=== PATIENT | female | born 1980 | race Caucasian/White ===

== ENCOUNTER 2017-09-28 16:25 | Emergency (ER) | payer MEDICAID ==
[~2017-09-28] VITALS: Wt 72.7 kg
[~2017-09-28 16:25] MED LIST: CALC600T24 PO; IBUP800T25 PO; NITR-58 PO; PERCOCET PO; PNV1TABL43 PO
[2017-09-28] MEDS ORDERED: CETI10CA PO (18:08)
[2017-09-28] MEDS ORDERED: IBUP-1542 PO (18:09)
--- NOTE | 2017-09-28 18:46 | ERD ---
ER Documentation Chief Complaint Chief Complaint sore throat HPI 37-year-old female presents who emergency department with concerns of throat pain 2 weeks. Patient describes her pain to be gradually worsening. Patient describes the pain to be sharp worse with swallowing. Patient does report hoarseness in her voice. Patient denies any fevers, chills, nausea, vomiting,, shortness breath or LOC. Patient does occasionally have a dry cough. Patient reports taking ibuprofen with some alleviation of symptoms. No recent travel. No sick contacts. ROS All systems reviewed and are negative except as per history of present illness. Medications Home Meds Active Scripts Ibuprofen* (Motrin*) 600 Mg Tab, 600 MG PO Q6, #30 TAB Prov:ANITHA MOFFETT PA-C 09/28/17 Cetirizine Hcl* (Zyrtec*) 10 Mg Capsule, 10 MG PO DAILY, #10 TAB.CHEW Prov:ANITHA MOFFETT PA-C 09/28/17 Oxycodone Hcl/Acetaminophen (Percocet) 1 Tab Tab, 2 TAB PO Q4H Y for PAIN LEVEL 6-10, #30 TAB 0 Refills Prov:RAHAT YEUNG MD 01/10/16 Ibuprofen* (Ibuprofen*) 800 Mg Tab, 800 MG PO Q8, #30 TAB 0 Refills Prov:RAHAT YEUNG MD 01/10/16 Nitrofurantoin Monohyd Macrocr* (Macrobid*) 100 Mg Capsr, 100 MG PO HS for 7 Days Prov:BRITT NGUYEN MD 06/08/15 Reported Medications Vit/Fe Fumarate/Fa* ( Vitamin Tablet*) 1 Tab Tablet, 1 TAB PO DAILY, TAB 06/08/15 Calcium Carbonate* (Calcium Carbonate*) 600 MG Ca Tab, 600 MG PO DAILY, TAB 06/08/15 Allergies Allergies: Coded Allergies: Penicillins (Verified Allergy, Unknown, rash, 01/08/16) PMhx/Soc Medical and Surgical Hx: pt denies Medical Hx, pt denies Surgical Hx Hx Alcohol Use: No Hx Substance Use: No Hx Tobacco Use: No Smoking Status: Never smoker Physical Exam Vitals Vital Signs Date Time Temp Pulse Resp B/P Pulse Ox O2 Delivery O2 Flow Rate FiO2 09/28/17 19:12 90 17 140/88 100 Room Air 09/28/17 16:28 99.7 115 20 172/81 98 Physical Exam GENERAL: Well-developed, well-nourished female. Appears in no acute distress. Hoarseness in voice noted. Speaking in full sentences. HEAD: Normocephalic, atraumatic. No deformities or ecchymosis. EYE: Pupils equal, round, and reactive to light. EOMs intact. No conjunctival erythema. No eye discharge. ENT: External ear without any masses or tenderness. TM visualized bilaterally, non-erythematous, non-bulging. Nasal mucosa pink with no discharge. Oropharynx is erythematous without any tonsillar swelling, erythema or exudates. No uvula deviation. No kissing tonsils. No trismus. No drooling. NECK: Supple. No meningismus. Normal ROM of the neck. LUNG: Clear to auscultation bilaterally. No rhonchi, wheezing, rales or coarse breath sounds. HEART: Regular rate and rhythm. No murmurs, rubs or gallops. BACK: No midline tenderness. EXTREMITIES: Equal pulses bilaterally. No peripheral clubbing, cyanosis or edema. No unilateral leg swelling. NEUROLOGIC: Alert and oriented to person, place and time. Moving all four extremities. 5/5 strength in all extremities. Normal speech. Steady gait. SKIN: Normal color. Warm and dry. No rashes or lesions. Procedures/MDM MEDICAL DECISION MAKING: This is a 37-year-old female presents with throat pain 2 weeks. Patient reports hoarseness in her voice. Vital signs were reviewed. Patient was afebrile. Patient was not hypoxic. The patient does not have trismus, muffled voice, uvula deviation, unilateral tonsillar swelling, or drooling. No signs of neck swelling or hyperextension of the neck noted. Given these findings, the patients presentation is most consistent with laryngitis. I have a much lower clinical suspicion for epiglottitis, peritonsillar abscess, retropharyngeal abscess, Ludwigs angina, strep pharyngitis, viral pharyngitis, dental abscess. PRESCRIPTIONS: Ibuprofen, Zyrtec DISCHARGE: At this time, patient is stable for discharge and outpatient management. Supportive therapies such as OTC throat lozenges and warm salt water gurgles were discussed. I have instructed the patient to follow-up with his/her primary care physician in 1-2 days. I have discussed with the patient the possibility of needing to see a specialist for further workup and imaging studies if symptoms persist. I have instructed the patient to promptly return to the ER for any new or worsening symptoms including increased pain, fever, nausea, vomiting, weakness or LOC. The patient and/or family expressed understanding of and agreement with this plan. All questions were answered. Home care instructions were provided. Patients blood pressure was elevated (>120/80) but appears stable without evidence of hypertensive emergency, hypertensive urgency or end-organ failure. I had discussion with the patient about the risks of hypertension. I have advised the patient to follow up with his/her primary care physician for outpatient monitoring and treatment for hypertension in 2-3 days. I have instructed the patient to return to the ER for any new or worsening symptoms including chest pain, shortness of breath, headache, blurred vision, confusion, nausea, vomiting or LOC. Departure Diagnosis: Primary Impression: Laryngitis Condition: Stable Patient Instructions: Laryngitis Referrals: [facility] YOU HAVE RECEIVED A MEDICAL SCREENING EXAM AND THE RESULTS INDICATE THAT YOU DO NOT HAVE A CONDITION THAT REQUIRES URGENT TREATMENT IN THE EMERGENCY DEPARTMENT. FURTHER EVALUATION AND TREATMENT OF YOUR CONDITION CAN WAIT UNTIL YOU ARE SEEN IN YOUR DOCTORS OFFICE WITHIN THE NEXT 1-2 DAYS. IT IS YOUR RESPONSIBILITY TO MAKE AN APPOINTMENT FOR FOLOW-UP CARE. IF YOU HAVE A PRIMARY DOCTOR --you should call your primary doctor and schedule an appointment IF YOU DO NOT HAVE A PRIMARY DOCTOR YOU CAN CALL OUR PHYSICIAN REFERRAL HOTLINE AT IF YOU CAN NOT AFFORD TO SEE A PHYSICIAN YOU CAN CHOSE FROM THE FOLLOWING [facility] CLINICS [facility] [address] [facility] [address] [facility] [facility] [address] [facility] [address] [facility] [address] [facility]. [facility]. [address] [facility]. [facility] YOU HAVE RECEIVED A MEDICAL SCREENING EXAM AND THE RESULTS INDICATE THAT YOU DO NOT HAVE A CONDITION THAT REQUIRES URGENT TREATMENT IN THE EMERGENCY DEPARTMENT. FURTHER EVALUATION AND TREATMENT OF YOUR CONDITION CAN WAIT UNTIL YOU ARE SEEN IN YOUR DOCTORS OFFICE WITHIN THE NEXT 1-2 DAYS. IT IS YOUR RESPONSIBILITY TO MAKE AN APPOINTMENT FOR FOLOW-UP CARE. IF YOU HAVE A PRIMARY DOCTOR --you should call your primary doctor and schedule and appointment IF YOU DO NOT HAVE A PRIMARY DOCTOR YOU CAN CALL OUR PHYSICIAN REFERRAL HOTLINE AT . IF YOU CAN NOT AFFORD TO SEE A PHYSICIAN YOU CAN CHOSE FROM THE FOLLOWING [facility] INSTITUTIONS: [facility] [address] [place] [address] [facility] [address] [place] [address] [facility] + [facility] [address] [place] [address] Additional Instructions: Call your primary care doctor TOMORROW for an appointment during the next 1-2 days.See the doctor sooner or return here if your condition worsens before your appointment time. Follow up with your doctor for your high blood pressure. ANITHA MOFFETT PA-C Sep 28, 2017 18:46
--- NOTE | 2017-09-28 18:46 | ERD ---
ER Documentation Chief Complaint Chief Complaint sore throat HPI 37-year-old female presents who emergency department with concerns of throat pain 2 weeks. Patient describes her pain to be gradually worsening. Patient describes the pain to be sharp worse with swallowing. Patient does report hoarseness in her voice. Patient denies any fevers, chills, nausea, vomiting,, shortness breath or LOC. Patient does occasionally have a dry cough. Patient reports taking ibuprofen with some alleviation of symptoms. No recent travel. No sick contacts. ROS All systems reviewed and are negative except as per history of present illness. Medications Home Meds Active Scripts Ibuprofen* (Motrin*) 600 Mg Tab, 600 MG PO Q6, #30 TAB Prov:ANITHA MOFFETT PA-C 09/28/17 Cetirizine Hcl* (Zyrtec*) 10 Mg Capsule, 10 MG PO DAILY, #10 TAB.CHEW Prov:ANITHA MOFFETT PA-C 09/28/17 Oxycodone Hcl/Acetaminophen (Percocet) 1 Tab Tab, 2 TAB PO Q4H Y for PAIN LEVEL 6-10, #30 TAB 0 Refills Prov:RAHAT YEUNG MD 01/10/16 Ibuprofen* (Ibuprofen*) 800 Mg Tab, 800 MG PO Q8, #30 TAB 0 Refills Prov:RAHAT YEUNG MD 01/10/16 Nitrofurantoin Monohyd Macrocr* (Macrobid*) 100 Mg Capsr, 100 MG PO HS for 7 Days Prov:BRITT NGUYEN MD 06/08/15 Reported Medications Vit/Fe Fumarate/Fa* ( Vitamin Tablet*) 1 Tab Tablet, 1 TAB PO DAILY, TAB 06/08/15 Calcium Carbonate* (Calcium Carbonate*) 600 MG Ca Tab, 600 MG PO DAILY, TAB 06/08/15 Allergies Allergies: Coded Allergies: Penicillins (Verified Allergy, Unknown, rash, 01/08/16) PMhx/Soc Medical and Surgical Hx: pt denies Medical Hx, pt denies Surgical Hx Hx Alcohol Use: No Hx Substance Use: No Hx Tobacco Use: No Smoking Status: Never smoker Physical Exam Vitals Vital Signs Date Time Temp Pulse Resp B/P Pulse Ox O2 Delivery O2 Flow Rate FiO2 09/28/17 19:12 90 17 140/88 100 Room Air 09/28/17 16:28 99.7 115 20 172/81 98 Physical Exam GENERAL: Well-developed, well-nourished female. Appears in no acute distress. Hoarseness in voice noted. Speaking in full sentences. HEAD: Normocephalic, atraumatic. No deformities or ecchymosis. EYE: Pupils equal, round, and reactive to light. EOMs intact. No conjunctival erythema. No eye discharge. ENT: External ear without any masses or tenderness. TM visualized bilaterally, non-erythematous, non-bulging. Nasal mucosa pink with no discharge. Oropharynx is erythematous without any tonsillar swelling, erythema or exudates. No uvula deviation. No kissing tonsils. No trismus. No drooling. NECK: Supple. No meningismus. Normal ROM of the neck. LUNG: Clear to auscultation bilaterally. No rhonchi, wheezing, rales or coarse breath sounds. HEART: Regular rate and rhythm. No murmurs, rubs or gallops. BACK: No midline tenderness. EXTREMITIES: Equal pulses bilaterally. No peripheral clubbing, cyanosis or edema. No unilateral leg swelling. NEUROLOGIC: Alert and oriented to person, place and time. Moving all four extremities. 5/5 strength in all extremities. Normal speech. Steady gait. SKIN: Normal color. Warm and dry. No rashes or lesions. Procedures/MDM MEDICAL DECISION MAKING: This is a 37-year-old female presents with throat pain 2 weeks. Patient reports hoarseness in her voice. Vital signs were reviewed. Patient was afebrile. Patient was not hypoxic. The patient does not have trismus, muffled voice, uvula deviation, unilateral tonsillar swelling, or drooling. No signs of neck swelling or hyperextension of the neck noted. Given these findings, the patients presentation is most consistent with laryngitis. I have a much lower clinical suspicion for epiglottitis, peritonsillar abscess, retropharyngeal abscess, Ludwigs angina, strep pharyngitis, viral pharyngitis, dental abscess. PRESCRIPTIONS: Ibuprofen, Zyrtec DISCHARGE: At this time, patient is stable for discharge and outpatient management. Supportive therapies such as OTC throat lozenges and warm salt water gurgles were discussed. I have instructed the patient to follow-up with his/her primary care physician in 1-2 days. I have discussed with the patient the possibility of needing to see a specialist for further workup and imaging studies if symptoms persist. I have instructed the patient to promptly return to the ER for any new or worsening symptoms including increased pain, fever, nausea, vomiting, weakness or LOC. The patient and/or family expressed understanding of and agreement with this plan. All questions were answered. Home care instructions were provided. Patients blood pressure was elevated (>120/80) but appears stable without evidence of hypertensive emergency, hypertensive urgency or end-organ failure. I had discussion with the patient about the risks of hypertension. I have advised the patient to follow up with his/her primary care physician for outpatient monitoring and treatment for hypertension in 2-3 days. I have instructed the patient to return to the ER for any new or worsening symptoms including chest pain, shortness of breath, headache, blurred vision, confusion, nausea, vomiting or LOC. Departure Diagnosis: Primary Impression: Laryngitis Condition: Stable Patient Instructions: Laryngitis Referrals: [facility] YOU HAVE RECEIVED A MEDICAL SCREENING EXAM AND THE RESULTS INDICATE THAT YOU DO NOT HAVE A CONDITION THAT REQUIRES URGENT TREATMENT IN THE EMERGENCY DEPARTMENT. FURTHER EVALUATION AND TREATMENT OF YOUR CONDITION CAN WAIT UNTIL YOU ARE SEEN IN YOUR DOCTORS OFFICE WITHIN THE NEXT 1-2 DAYS. IT IS YOUR RESPONSIBILITY TO MAKE AN APPOINTMENT FOR FOLOW-UP CARE. IF YOU HAVE A PRIMARY DOCTOR --you should call your primary doctor and schedule an appointment IF YOU DO NOT HAVE A PRIMARY DOCTOR YOU CAN CALL OUR PHYSICIAN REFERRAL HOTLINE AT IF YOU CAN NOT AFFORD TO SEE A PHYSICIAN YOU CAN CHOSE FROM THE FOLLOWING [facility] CLINICS [facility] [address] [facility] [address] [facility]. [facility] [address] [facility] [address] [facility] [address] [facility]. [facility]. [address] [facility]. [facility] YOU HAVE RECEIVED A MEDICAL SCREENING EXAM AND THE RESULTS INDICATE THAT YOU DO NOT HAVE A CONDITION THAT REQUIRES URGENT TREATMENT IN THE EMERGENCY DEPARTMENT. FURTHER EVALUATION AND TREATMENT OF YOUR CONDITION CAN WAIT UNTIL YOU ARE SEEN IN YOUR DOCTORS OFFICE WITHIN THE NEXT 1-2 DAYS. IT IS YOUR RESPONSIBILITY TO MAKE AN APPOINTMENT FOR FOLOW-UP CARE. IF YOU HAVE A PRIMARY DOCTOR --you should call your primary doctor and schedule and appointment IF YOU DO NOT HAVE A PRIMARY DOCTOR YOU CAN CALL OUR PHYSICIAN REFERRAL HOTLINE AT . IF YOU CAN NOT AFFORD TO SEE A PHYSICIAN YOU CAN CHOSE FROM THE FOLLOWING [facility] INSTITUTIONS: [facility] [address] [place] [address] [facility] [address] [place] [address] [facility] + [facility] [address] [place] [address] Additional Instructions: Call your primary care doctor TOMORROW for an appointment during the next 1-2 days.See the doctor sooner or return here if your condition worsens before your appointment time. Follow up with your doctor for your high blood pressure. ANITHA MOFFETT PA-C Sep 28, 2017 18:46
--- NOTE | 2017-09-28 18:46 | ERD ---
ER Documentation Chief Complaint Chief Complaint sore throat HPI 37-year-old female presents who emergency department with concerns of throat pain 2 weeks. Patient describes her pain to be gradually worsening. Patient describes the pain to be sharp worse with swallowing. Patient does report hoarseness in her voice. Patient denies any fevers, chills, nausea, vomiting,, shortness breath or LOC. Patient does occasionally have a dry cough. Patient reports taking ibuprofen with some alleviation of symptoms. No recent travel. No sick contacts. ROS All systems reviewed and are negative except as per history of present illness. Medications Home Meds Active Scripts Ibuprofen* (Motrin*) 600 Mg Tab, 600 MG PO Q6, #30 TAB Prov:ANITHA MOFFETT PA-C 09/28/17 Cetirizine Hcl* (Zyrtec*) 10 Mg Capsule, 10 MG PO DAILY, #10 TAB.CHEW Prov:ANITHA MOFFETT PA-C 09/28/17 Oxycodone Hcl/Acetaminophen (Percocet) 1 Tab Tab, 2 TAB PO Q4H Y for PAIN LEVEL 6-10, #30 TAB 0 Refills Prov:RAHAT YEUNG MD 01/10/16 Ibuprofen* (Ibuprofen*) 800 Mg Tab, 800 MG PO Q8, #30 TAB 0 Refills Prov:RAHAT YEUNG MD 01/10/16 Nitrofurantoin Monohyd Macrocr* (Macrobid*) 100 Mg Capsr, 100 MG PO HS for 7 Days Prov:BRITT NGUYEN MD 06/08/15 Reported Medications Vit/Fe Fumarate/Fa* ( Vitamin Tablet*) 1 Tab Tablet, 1 TAB PO DAILY, TAB 06/08/15 Calcium Carbonate* (Calcium Carbonate*) 600 MG Ca Tab, 600 MG PO DAILY, TAB 06/08/15 Allergies Allergies: Coded Allergies: Penicillins (Verified Allergy, Unknown, rash, 01/08/16) PMhx/Soc Medical and Surgical Hx: pt denies Medical Hx, pt denies Surgical Hx Hx Alcohol Use: No Hx Substance Use: No Hx Tobacco Use: No Smoking Status: Never smoker Physical Exam Vitals Vital Signs Date Time Temp Pulse Resp B/P Pulse Ox O2 Delivery O2 Flow Rate FiO2 09/28/17 19:12 90 17 140/88 100 Room Air 09/28/17 16:28 99.7 115 20 172/81 98 Physical Exam GENERAL: Well-developed, well-nourished female. Appears in no acute distress. Hoarseness in voice noted. Speaking in full sentences. HEAD: Normocephalic, atraumatic. No deformities or ecchymosis. EYE: Pupils equal, round, and reactive to light. EOMs intact. No conjunctival erythema. No eye discharge. ENT: External ear without any masses or tenderness. TM visualized bilaterally, non-erythematous, non-bulging. Nasal mucosa pink with no discharge. Oropharynx is erythematous without any tonsillar swelling, erythema or exudates. No uvula deviation. No kissing tonsils. No trismus. No drooling. NECK: Supple. No meningismus. Normal ROM of the neck. LUNG: Clear to auscultation bilaterally. No rhonchi, wheezing, rales or coarse breath sounds. HEART: Regular rate and rhythm. No murmurs, rubs or gallops. BACK: No midline tenderness. EXTREMITIES: Equal pulses bilaterally. No peripheral clubbing, cyanosis or edema. No unilateral leg swelling. NEUROLOGIC: Alert and oriented to person, place and time. Moving all four extremities. 5/5 strength in all extremities. Normal speech. Steady gait. SKIN: Normal color. Warm and dry. No rashes or lesions. Procedures/MDM MEDICAL DECISION MAKING: This is a 37-year-old female presents with throat pain 2 weeks. Patient reports hoarseness in her voice. Vital signs were reviewed. Patient was afebrile. Patient was not hypoxic. The patient does not have trismus, muffled voice, uvula deviation, unilateral tonsillar swelling, or drooling. No signs of neck swelling or hyperextension of the neck noted. Given these findings, the patients presentation is most consistent with laryngitis. I have a much lower clinical suspicion for epiglottitis, peritonsillar abscess, retropharyngeal abscess, Ludwigs angina, strep pharyngitis, viral pharyngitis, dental abscess. PRESCRIPTIONS: Ibuprofen, Zyrtec DISCHARGE: At this time, patient is stable for discharge and outpatient management. Supportive therapies such as OTC throat lozenges and warm salt water gurgles were discussed. I have instructed the patient to follow-up with his/her primary care physician in 1-2 days. I have discussed with the patient the possibility of needing to see a specialist for further workup and imaging studies if symptoms persist. I have instructed the patient to promptly return to the ER for any new or worsening symptoms including increased pain, fever, nausea, vomiting, weakness or LOC. The patient and/or family expressed understanding of and agreement with this plan. All questions were answered. Home care instructions were provided. Patients blood pressure was elevated (>120/80) but appears stable without evidence of hypertensive emergency, hypertensive urgency or end-organ failure. I had discussion with the patient about the risks of hypertension. I have advised the patient to follow up with his/her primary care physician for outpatient monitoring and treatment for hypertension in 2-3 days. I have instructed the patient to return to the ER for any new or worsening symptoms including chest pain, shortness of breath, headache, blurred vision, confusion, nausea, vomiting or LOC. Departure Diagnosis: Primary Impression: Laryngitis Condition: Stable Patient Instructions: Laryngitis Referrals: [facility] YOU HAVE RECEIVED A MEDICAL SCREENING EXAM AND THE RESULTS INDICATE THAT YOU DO NOT HAVE A CONDITION THAT REQUIRES URGENT TREATMENT IN THE EMERGENCY DEPARTMENT. FURTHER EVALUATION AND TREATMENT OF YOUR CONDITION CAN WAIT UNTIL YOU ARE SEEN IN YOUR DOCTORS OFFICE WITHIN THE NEXT 1-2 DAYS. IT IS YOUR RESPONSIBILITY TO MAKE AN APPOINTMENT FOR FOLOW-UP CARE. IF YOU HAVE A PRIMARY DOCTOR --you should call your primary doctor and schedule an appointment IF YOU DO NOT HAVE A PRIMARY DOCTOR YOU CAN CALL OUR PHYSICIAN REFERRAL HOTLINE AT IF YOU CAN NOT AFFORD TO SEE A PHYSICIAN YOU CAN CHOSE FROM THE FOLLOWING [facility] CLINICS [facility] [address] [facility] [address] [facility]. [facility] [address] [facility] [address] [facility] [address] [facility]. [facility]. [address] [facility]. [facility] YOU HAVE RECEIVED A MEDICAL SCREENING EXAM AND THE RESULTS INDICATE THAT YOU DO NOT HAVE A CONDITION THAT REQUIRES URGENT TREATMENT IN THE EMERGENCY DEPARTMENT. FURTHER EVALUATION AND TREATMENT OF YOUR CONDITION CAN WAIT UNTIL YOU ARE SEEN IN YOUR DOCTORS OFFICE WITHIN THE NEXT 1-2 DAYS. IT IS YOUR RESPONSIBILITY TO MAKE AN APPOINTMENT FOR FOLOW-UP CARE. IF YOU HAVE A PRIMARY DOCTOR --you should call your primary doctor and schedule and appointment IF YOU DO NOT HAVE A PRIMARY DOCTOR YOU CAN CALL OUR PHYSICIAN REFERRAL HOTLINE AT . IF YOU CAN NOT AFFORD TO SEE A PHYSICIAN YOU CAN CHOSE FROM THE FOLLOWING [facility] INSTITUTIONS: [facility] [address] [place] [address] [facility] [address] [place] [address] [facility] + [facility] [address] [place] [address] Additional Instructions: Call your primary care doctor TOMORROW for an appointment during the next 1-2 days.See the doctor sooner or return here if your condition worsens before your appointment time. Follow up with your doctor for your high blood pressure. ANITHA MOFFETT PA-C Sep 28, 2017 18:46
[2017-09-28 19:12] VITALS: BP 140/88; PULSE 90; RESP 17
== END 2017-09-28 19:12 | disposition home or self-care (01) ==
LOC: FTE 16:25
DX: J04.0 Acute laryngitis (principal)
CPT/HCPCS: 99283

== ENCOUNTER 2017-10-09 23:38 | Inpatient (IN) | payer MEDICAID ==
[~2017-10-09] VITALS: Ht 160 cm; Wt 79.3 kg
[~2017-10-09 23:38] MED LIST changes: +CETI10CA PO; +IBUP-1542 PO
[2017-10-09 23:40] VITALS: Ht 160 cm; Wt 79.3 kg
[2017-10-10] VITALS (7 sets, daily range): BP systolic 107–125; BP diastolic 37–57; PULSE 80–93; RESP 16–19; TEMP 98
[2017-10-10] MEDS ORDERED: ACETAMINOPHEN 500 MG TAB PO STA (00:15)
[2017-10-10 00:39] LABS: BASOPHILS % 0.2 % (0.0-2.0); EOSINOPHILS # 0.1 10^3/ul (0.0-0.5); EOSINOPHILS % 0.6 % (0.0-7.0); HEMATOCRIT 40.1 % (37.0-47.0); HEMOGLOBIN 13.8 g/dl (12.0-16.0); LYMPHOCYTES # 2.7 10^3/ul (0.8-2.9); LYMPHOCYTES % 21.7 % (15.0-51.0); MEAN CORPUSCULAR HEMOGLOBIN 29.9 pg (29.0-33.0); MEAN CORPUSCULAR HGB CONC 34.4 g/dl (32.0-37.0); MEAN CORPUSCULAR VOLUME 86.8 fl (82.0-101.0); MEAN PLATELET VOLUME 9.6 fl (7.4-10.4); NEUTROPHIL # 8.6 10^3/ul (1.6-7.5); NEUTROPHILS % 69.2 % (39.0-77.0); PLATELET COUNT 493 10^3/UL (140-415); RED BLOOD COUNT 4.62 10^6/ul (4.20-5.40); RED CELL DISTRIBUTION WIDTH 12.3 % (11.5-14.5); WHITE BLOOD COUNT 12.4 10^3/ul (4.8-10.8)
--- NOTE | 2017-10-10 00:47 | RADRPT ---
PROCEDURE: CHEST - 1 VIEW CLINICAL INDICATION: 37-year-old female with shortness of breath and febrile. TECHNIQUE: A single frontal AP semi-erect portable view of the chest was performed. The images we re reviewed on a PACS workstation. COMPARISON: None. FINDINGS: The cardiomediastinal silhouette is within normal limits. There is elevation right hemidiaphragm. Th ere is mild right basilar subsegmental atelectasis. There is no evidence for focal consolidation. Th ere is no evidence for congestive heart failure. There is no evidence for pneumothorax. The osseous structures are intact. IMPRESSION: Elevated right hemidiaphragm with mild right basilar subsegmental atelectasis. .Isidro Amaya MD, MD Date Time Electronically viewed and signed by .Isidro Amaya MD, on 10/10/2017 00:47 .M/
[2017-10-10 00:52] LABS: INR 0.97; PROTIME 12.9 Sec (12.2-14.2)
[2017-10-10 00:53] LABS: PARTIAL THROMBOPLASTIN TIME 33.1 Sec (25.0-35.0)
[2017-10-10 01:03] LABS: ALANINE AMINOTRANSFERASE 71 IU/L (13-69); ALBUMIN 4.5 g/dl (3.3-4.9); ALBUMIN/GLOBULIN RATIO 1.04; ALKALINE PHOSPHATASE 118 IU/L (42-121); ANION GAP 14 (8-16); ASPARTATE AMINO TRANSFERASE 34 IU/L (15-46); BLOOD UREA NITROGEN 11 mg/dl (7-20); CALCIUM 9.6 mg/dl (8.4-10.2); CARBON DIOXIDE 26 mmol/L (21-31); CHLORIDE 108 mmol/L (97-110); CREATININE 0.69 mg/dl (0.44-1.00); GLUCOSE 155 mg/dl (70-220); POTASSIUM 4.1 mmol/L (3.5-5.1); SODIUM 144 mmol/L (135-144); TOTAL PROTEIN 8.8 g/dl (6.1-8.1)
[2017-10-10 01:17] LABS: TROPONIN-I < 0.012 ng/ml (0.00-0.12)
[2017-10-10 01:53] LABS: ADD UMIC NO; UR ASCORBIC ACID NEGATIVE (NEGATIVE); UR BACTERIA FEW /HPF (NONE SEEN); UR BILIRUBIN (Dip) NEGATIVE (NEGATIVE); UR BLOOD (Dip) NEGATIVE (NEGATIVE); UR CLARITY SLIGHTLY CLOUDY (CLEAR); UR COLOR YELLOW (YELLOW); UR GLUCOSE (Dip) 1+ mg/dL (NEGATIVE); UR KETONES (Dip) NEGATIVE (NEGATIVE); UR LEUKOCYTE ESTERASE (Dip) NEGATIVE Leu/ul (NEGATIVE); UR NITRITE (Dip) NEGATIVE (NEGATIVE); UR RBC 3 /HPF (0-5); UR SPECIFIC GRAVITY (Dip) 1.018 (1.003-1.030); UR TOTAL PROTEIN (Dip) NEGATIVE (NEGATIVE); UR UROBILINOGEN (Dip) NEGATIVE (NEGATIVE)
[2017-10-10] MEDS ORDERED: DEXAMETHASONE 10 MG/ML 1 ML INJ IV ONE (02:00)
[2017-10-10] MEDS ORDERED: PROPYLTHIOURACIL 50 MG TAB PO ONE (02:00)
[2017-10-10] MEDS ORDERED: METOPROLOL 5 MG INJ IV ONE (02:00)
--- NOTE | 2017-10-10 02:21 | ERD ---
ER Documentation Chief Complaint Chief Complaint pt came in moaning and chattering teeth, no other communication HPI This is a 37-year-old female came in moaning and chattering her teeth but no other form of communication. When she calmed down somewhat she said she feels very anxious. Patient has history of thyroid disorder. Patient seems very tremulous. Exophthalmus noted as well. ROS All systems reviewed and are negative except as per history of present illness. Medications Home Meds Active Scripts Ibuprofen* (Motrin*) 600 Mg Tab, 600 MG PO Q6, #30 TAB Prov:ANITHA MOFFETT PA-C 09/28/17 Cetirizine Hcl* (Zyrtec*) 10 Mg Capsule, 10 MG PO DAILY, #10 TAB.CHEW Prov:ANITHA MOFFETT PA-C 09/28/17 Oxycodone Hcl/Acetaminophen (Percocet) 1 Tab Tab, 2 TAB PO Q4H Y for PAIN LEVEL 6-10, #30 TAB 0 Refills Prov:RAHAT YEUNG MD 01/10/16 Ibuprofen* (Ibuprofen*) 800 Mg Tab, 800 MG PO Q8, #30 TAB 0 Refills Prov:RAHAT YEUNG MD 01/10/16 Nitrofurantoin Monohyd Macrocr* (Macrobid*) 100 Mg Capsr, 100 MG PO HS for 7 Days Prov:BRITT NGUYEN MD 06/08/15 Reported Medications Vit/Fe Fumarate/Fa* ( Vitamin Tablet*) 1 Tab Tablet, 1 TAB PO DAILY, TAB 06/08/15 Calcium Carbonate* (Calcium Carbonate*) 600 MG Ca Tab, 600 MG PO DAILY, TAB 06/08/15 Allergies Allergies: Coded Allergies: Penicillins (Verified Allergy, Unknown, rash, 01/08/16) PMhx/Soc History of Surgery: Yes ( X 1) Anesthesia Reaction: No Hx Neurological Disorder: No Hx Respiratory Disorders: No Hx Cardiac Disorders: No Hx Psychiatric Problems: No Hx Miscellaneous Medical Probl: Yes (THROID) Hx Alcohol Use: No Hx Substance Use: No Hx Tobacco Use: No Smoking Status: Never smoker Physical Exam Vitals Vital Signs Date Time Temp Pulse Resp B/P Pulse Ox O2 Delivery O2 Flow Rate FiO2 10/10/17 00:45 135 23 137/95 98 Nasal Cannula 2.0 10/09/17 23:58 Nasal Cannula 2.0 10/09/17 23:58 Nasal Cannula 2 10/09/17 23:40 101.8 138 34 165/107 98 Physical Exam Const: [] Head: Atraumatic Eyes: Normal Conjunctiva ENT: Normal External Ears, Nose and Mouth. Neck: Full range of motion..~ No meningismus. Resp: Clear to auscultation bilaterally Cardio: Regular rate and rhythm, no murmurs Abd: Soft, non tender, non distended. Normal bowel sounds Skin: No petechiae or rashes Back: No midline or flank tenderness Ext: No cyanosis, or edema Neur: Awake and alert Psych: Normal Mood and Affect Result Diagram: 10/09/170 10/09/17 2340 Results 24 hrs Laboratory Tests Test 10/09/17 23:40 10/10/17 00:05 White Blood Count 12.410^3/ul Red Blood Count 4.6210^6/ul Hemoglobin 13.8g/dl Hematocrit 40.1% Mean Corpuscular Volume 86.8fl Mean Corpuscular Hemoglobin 29.9pg Mean Corpuscular Hemoglobin Concent 34.4g/dl Red Cell Distribution Width 12.3% Platelet Count 23357^3/UL Mean Platelet Volume 9.6fl Neutrophils % 69.2% Lymphocytes % 21.7% Monocytes % 8.0% Eosinophils % 0.6% Basophils % 0.2% Nucleated Red Blood Cells % 0.0/100WBC Neutrophils # 8.610^3/ul Lymphocytes # 2.710^3/ul Monocytes # 1.010^3/ul Eosinophils # 0.110^3/ul Basophils # 0.010^3/ul Nucleated Red Blood Cells # 0.010^3/ul Prothrombin Time 12.9Sec Prothrombin Time Ratio 1.0 INR International Normalized Ratio 0.97 Activated Partial Thromboplast Time 33.1Sec Urine Color YELLOW Urine Clarity SLIGHTLY CLOUDY Urine pH 7.0 Urine Specific [place] 1.018 Urine Ketones NEGATIVEmg/dL Urine Nitrite NEGATIVEmg/dL Urine Bilirubin NEGATIVEmg/dL Urine Urobilinogen NEGATIVEmg/dL Urine Leukocyte Esterase NEGATIVELeu/ul Urine Microscopic RBC 3/HPF Urine Microscopic WBC 0/HPF Urine Bacteria FEW/HPF Urine Hemoglobin NEGATIVEmg/dL Urine Glucose 1+mg/dL Urine Total Protein NEGATIVEmg/dl Sodium Level 144mmol/L Potassium Level 4.1mmol/L Chloride Level 108mmol/L Carbon Dioxide Level 26mmol/L Anion Gap 14 Blood Urea Nitrogen 11mg/dl Creatinine 0.69mg/dl Glucose Level 155mg/dl Calcium Level 9.6mg/dl Total Bilirubin 0.0mg/dl Direct Bilirubin 0.00mg/dl Indirect Bilirubin 0.0mg/dl Aspartate Amino Transf (AST/SGOT) 34IU/L Alanine Aminotransferase (ALT/SGPT) 71IU/L Alkaline Phosphatase 118IU/L Troponin I < 0.012ng/ml Total Protein 8.8g/dl Albumin 4.5g/dl Globulin 4.30g/dl Albumin/Globulin Ratio 1.04 Free Thyroxine Index 6.44ug/ml Thyroxine (T4) 15.7ug/dl Triiodothyronine (T3) Uptake 41.0% Lactic Acid Level 2.0mmol/L Current Medications Medications (Trade) Dose Ordered Sig/Jemal Route PRN Reason Start Time Stop Time Status Last Admin Dose Admin Acetaminophen (Tylenol Tab) 1,000 mg ONCE STAT PO 10/10/17 00:15 10/10/17 00:16 DC 10/10/17 00:30 Dexamethasone (Decadron) 10 mg ONCE ONCE IV 10/10/17 02:00 10/10/17 02:01 DC 10/10/17 02:02 Propylthiouracil (Ptu) 100 mg ONCE ONCE PO 10/10/17 02:00 10/10/17 02:01 DC Metoprolol Tartrate (Lopressor) 5 mg ONCE ONCE IV 10/10/17 02:00 10/10/17 02:01 DC 10/10/17 02:01 Procedures/MDM Chest X-ray 1V Interpreted by me: Soft Tissue: No acute abnormalities Bones: No acute abnormalities Mediastinum/Cardiac Silhouette/Lungs: [No acute abnormalities] EKG: Rate/Rhythm: Tachycardic rate at 144, normal rhythm QRS, ST, T-waves: [No changes consistent w/ acute ischemia] Impression: [No evidence of ischemia or arrhythmia] Medical decision-makin-year-old female has evidence of thyroid storm. Labs 10 to bear this out as well with severely elevated T4. Treated with beta- santosh, propylthiouracil, acetaminophen, Decadron. Admitted to ICU to hospitalist. Heart rate has normalized. Critical Care: Time: 45 minutes Treatments/Evaluations: Close monitoring and treatment of unstable vital signs, cardiorespiratory, and neurologic status, while maintaining tight balance of fluid, respiratory, and cardiac interventions. Departure Diagnosis: Primary Impression: Thyroid crisis or storm Thyrotoxicosis type: unspecified thyrotoxicosis type Qualified Code: E05.91 - Thyrotoxicosis with thyrotoxic crisis, unspecified thyrotoxicosis type Condition: Critical BRENDA MATAMOROS Oct 10, 2017 02:21
[2017-10-10] MEDS ORDERED: ONDANSETRON 4 MG INJ IV PRN (03:00)
[2017-10-10] MEDS ORDERED: PROPRANOLOL 40 MG TAB PO SCH (03:00)
[2017-10-10] MEDS ORDERED: PROPYLTHIOURACIL 50 MG TAB PO SCH (03:30)
[2017-10-10] MEDS: SOD CHLORIDE 0.9% 1,000 ML IV SCH ×3 (03:40→21:08)
[2017-10-10] MEDS: POTASSIUM IODIDE 20 DROPS/ML 30 ML BTL PO SCH ×3 (04:30→21:09)
[2017-10-10 05:34] LABS: BASOPHILS % 0.2 % (0.0-2.0); EOSINOPHILS % 0.1 % (0.0-7.0); HEMATOCRIT 36.9 % (37.0-47.0); HEMOGLOBIN 12.2 g/dl (12.0-16.0); LYMPHOCYTES # 1.2 10^3/ul (0.8-2.9); LYMPHOCYTES % 8.6 % (15.0-51.0); MEAN CORPUSCULAR HEMOGLOBIN 28.4 pg (29.0-33.0); MEAN CORPUSCULAR HGB CONC 33.1 g/dl (32.0-37.0); MEAN PLATELET VOLUME 9.5 fl (7.4-10.4); MONOCYTE # 0.3 10^3/ul (0.3-0.9); MONOCYTES % 1.9 % (0.0-11.0); NEUTROPHIL # 12.6 10^3/ul (1.6-7.5); NEUTROPHILS % 88.9 % (39.0-77.0); PLATELET COUNT 415 10^3/UL (140-415); RED BLOOD COUNT 4.29 10^6/ul (4.20-5.40); RED CELL DISTRIBUTION WIDTH 12.5 % (11.5-14.5); WHITE BLOOD COUNT 14.1 10^3/ul (4.8-10.8)
[2017-10-10 05:53] LABS: ALBUMIN 4.1 g/dl (3.3-4.9); ALBUMIN/GLOBULIN RATIO 1.1; BILIRUBIN,INDIRECT 0.1 mg/dl (0-1.1); BILIRUBIN,TOTAL 0.1 mg/dl (0.2-1.3); CALCIUM 8.6 mg/dl (8.4-10.2); CREATININE 0.51 mg/dl (0.44-1.00); TOTAL PROTEIN 7.8 g/dl (6.1-8.1)
--- NOTE | 2017-10-10 07:03 | HP ---
Date/Time of Note Date/Time of Note DATE: 10/10/17 TIME: 06:57 Assessment/Plan VTE Prophylaxis VTE Prophylaxis Intervention: SCD's Lines/Catheters IV Catheter Type (from Nrs): Midline Central line still needed: Yes Assessment/Plan Assessment/Plan ASSESSMENT 37-year-old female was history of thyroid disorder, likely Grave's disease who presented with tremor, fever/chills and severe anxiety and altered mentation was found to be in thyroid storm PLAN Patient is status post steroid, beta-santosh and PTU and she is currently stable She is awaiting ICU admission, but I believe can be downgraded to telemetry if she continues to be stable Continue steroid, PTU and beta-santosh will check TSH and thyroid ultrasound Endocrine consult HPI/ROS Admit Date/Time Admit Date/Time Hx of Present Illness This is a 37-year-old female with history of thyroid disorder was brought to the ER for tremors and chills. When she presented to the ER initially, she was unable to provide history. Now that she is stable, she said since yesterday, she was feeling anxious, tired, "feeling hot inside and cold outside". She said she was told she had a thyroid problem 3 years ago while she was . She was told no need for treatment with medications. During another last year, she was told she did not have a thyroid problem. ER Course: She was initially tachycardic with a documented heart rate as high as 135. She was also febrile with a temperature of almost 102. BP was 165/ 107. Her thyroxine was found to be almost 16. No TSH was done in the ER. She was given IV beta-santosh, PTU and steroid. Now she is hemodynamically stable and her latest heart rate is 80. She is no longer febrile without administration of antibiotic. Initial white count was 12,000 which increased to 14,000, likely from steroid. PMH/Family/Social Social History Smoking Status: Never smoker Exam/Review of Systems Vital Signs Vitals Vital Signs Date Time Temp Pulse Resp B/P Pulse Ox O2 Delivery O2 Flow Rate FiO2 10/10/17 06:00 98.2 80 18 120/53 98 Room Air 10/10/17 02:41 2.0 Exam Constitutional: other (No acute distress) Head: atraumatic, normocephalic Eyes: other (Proptosis of the eyes) Respiratory: clear to auscultation, normal air movement Cardiovascular: other (Tachycardic with regular rhythm) Gastrointestinal: non-tender, soft Extremities: normal pulses Labs Result Diagram: 10/10/1752110/10/17521 Medications Medications Current Medications Potassium Iodide (Sski) 5 drop Q8 PO ; Start 10/10/17 at 04:30 Hydrocortisone 100 mg 100 mg Q6H IV ; Start 10/10/17 at 11:00 Sodium Chloride (NS) 1,000 ml @ 100 mls/hr Q10H IV Last administered on t 03:40; Admin Dose 100 MLS/HR; Start 10/10/17 at 02:40 Ondansetron HCl (Zofran Inj) 4 mg Q6H PRN IV NAUSEA AND/OR VOMITING; Start at 03:00 Acetaminophen (Tylenol Liquid) 650 mg Q6H PRN PO PAIN LEVEL 1-3 OR FEVER; Start 10/10/17 at 03:00 Morphine Sulfate (morphine) 2 mg Q4H PRN IV PAIN LEVEL 7-10; Start 10/10/17 at 03:00 Propranolol HCl (Inderal) 20 mg Q6 PO ; Start 10/10/17 at 09:00 Propylthiouracil (Ptu) 200 mg Q6 PO ; Start 10/10/17 at 10:00 BRENDA EGAN MD Oct 10, 2017 07:03
--- NOTE | 2017-10-10 07:33 | RADRPT ---
PROCEDURE: US Thyroid. CLINICAL INDICATION: Thyroid nodule. TECHNIQUE: Sonographic images of the thyroid were obtained using a high-frequency linear array tra nsducer. COMPARISON: None. FINDINGS: Thyroid size: Right: 4.3 x 0.8 x 0.9 cm Left: 4.7 x 1.1 x 1.2 cm Appearance: Echogenicity: Mildly heterogeneous Vascularity: Normal RIGHT lobe nodule(s): Hypoechoic nodule in the upper pole measuring 4 mm. Hypoechoic nodule in the inferior pole measuring 7 mm. LEFT lobe nodule(s): Hypoechoic nodule in the lower pole measuring 4 mm. Additional: Adenopathy: None Soft tissues: None IMPRESSION: Nonspecific small subcentimeter hyperechoic nodules in the bilateral lobes without worrisome sonogra phic features. Mild heterogeneous echotexture of thyroid gland. The vascularity of the thyroid gland is normal. RPTAT: EE .Rosendo Sawyer MD, MD Date Time Electronically viewed and signed by .Rosendo Sawyer MD, on 10/10/2017 07:39 .C/
[2017-10-10 07:43] LABS: FREE T3 9.34 pg/ml (2.77-5.27)
[2017-10-10 08:02] LABS: THYROID STIMULATING HORMONE < 0.015 MIU/L (0.465-4.680)
[2017-10-10] MEDS: PROPYLTHIOURACIL 50 MG TAB PO SCH ×3 (09:25→18:53)
[2017-10-10] MEDS: PROPRANOLOL 20 MG TAB PO SCH ×3 (09:25→18:56)
[2017-10-10] MEDS: HYDROCORTISONE 100 MG INJ IV SCH ×3 (11:13→22:40)
--- NOTE | 2017-10-10 15:07 | PN ---
Date/Time of Note Date/Time of Note DATE: 10/10/17 TIME: 15:01 Assessment/Plan VTE Prophylaxis VTE Prophylaxis Intervention: SCD's Lines/Catheters IV Catheter Type (from Nrsg): Midline Assessment/Plan Assessment/Plan 1. Acute thyroiditis with toxicosis - Patient has low TSH and elevated T3 and T4 levels in setting of known thyroid disease - Endocrinology consultation appreciated - Patient receiving PTU as well as Decadron - c/o difficulty swallowing and pain in thryoid area that has since resolved 2. Tachycardia- resolved - Propranolol on board. HR better controlled 3. Thryoid Nodules - Seen on US thyroid: "nonspecific small subcentimeter hyperechoic nodules in the bilateral lobes without worrisome sonographic features. Mild heterogeneous echotexture of thyroid gland. The vascularity of the thyroid gland is normal" 4. Disposition - Continue monitoring in telemetry Subjective 24 Hr Interval Summary Free Text/Dictation Patient feeling much better since admission and states is just tired since did not sleep much last night. No new complaints. Exam/Review of Systems Vital Signs Vitals Vital Signs Date Time Temp Pulse Resp B/P Pulse Ox O2 Delivery O2 Flow Rate FiO2 10/10/17 12:17 87 10/10/17 11:09 25 117/52 100 Room Air 10/10/17 08:30 98.0 10/10/17 02:41 2.0 Exam Constitutional: alert, oriented, other (sleepy) Psych: nl mood/affect Head: atraumatic, normocephalic Eyes: EOMI, PERRL, other (proptosis) ENMT: mucosa pink and moist Neck: supple, thyromegaly Respiratory: clear to auscultation, No crackles/rales, No diminished breath sounds, No wheezing Cardiovascular: nl pulses, regular rate and rhythm, No systolic murmur Gastrointestinal: non-tender, soft, No distended, No rebound or guarding Extremities: No calf tenderness, No edema Neurological: CORSET [employer] II-XII intact, nl mental status, nl speech Skin: nl turgor Lymph: nl lymph nodes Results Result Diagram: 10/10/1752110/10/17521 Results 24 hrs Laboratory Tests Test 10/09/17 23:40 10/10/17 00:05 10/10/17 03:32 10/10/17 05:00 White Blood Count 12.4 H Red Blood Count 4.62 # Hemoglobin 13.8 # Hematocrit 40.1 # Mean Corpuscular Volume 86.8 Mean Corpuscular Hemoglobin 29.9 Mean Corpuscular Hemoglobin Concent 34.4 Red Cell Distribution Width 12.3 Platelet Count 493 H Mean Platelet Volume 9.6 Neutrophils % 69.2 Lymphocytes % 21.7 Monocytes % 8.0 Eosinophils % 0.6 Basophils % 0.2 Nucleated Red Blood Cells % 0.0 Neutrophils # 8.6 H Lymphocytes # 2.7 Monocytes # 1.0 H Eosinophils # 0.1 Basophils # 0.0 Nucleated Red Blood Cells # 0.0 Prothrombin Time 12.9 Prothrombin Time Ratio 1.0 INR International Normalized Ratio 0.97 Activated Partial Thromboplast Time 33.1 Urine Color YELLOW Urine Clarity SLIGHTLY CLOUDY A Urine pH 7.0 Urine Specific [place] 1.018 Urine Ketones NEGATIVE Urine Nitrite NEGATIVE Urine Bilirubin NEGATIVE Urine Urobilinogen NEGATIVE Urine Leukocyte Esterase NEGATIVE Urine Microscopic RBC 3 Urine Microscopic WBC 0 Urine Bacteria FEW A Urine Hemoglobin NEGATIVE Urine Glucose 1+ H Urine Total Protein NEGATIVE Sodium Level 144 Potassium Level 4.1 Chloride Level 108 Carbon Dioxide Level 26 Anion Gap 14 Blood Urea Nitrogen 11 Creatinine 0.69 Glucose Level 155 Calcium Level 9.6 Total Bilirubin 0.0 L Direct Bilirubin 0.00 Indirect Bilirubin 0.0 Aspartate Amino Transf (AST/SGOT) 34 Alanine Aminotransferase (ALT/SGPT) 71 H Alkaline Phosphatase 118 Troponin I < 0.012 Total Protein 8.8 H Albumin 4.5 Globulin 4.30 H Albumin/Globulin Ratio 1.04 Free Thyroxine Index 6.44 H Thyroxine (T4) 15.7 H Triiodothyronine (T3) Uptake 41.0 H Lactic Acid Level 2.0 1.1 1.2 Test 10/10/17 05:22 White Blood Count 14.1 H Red Blood Count 4.29 Hemoglobin 12.2 Hematocrit 36.9 L Mean Corpuscular Volume 86.0 Mean Corpuscular Hemoglobin 28.4 L Mean Corpuscular Hemoglobin Concent 33.1 Red Cell Distribution Width 12.5 Platelet Count 415 Mean Platelet Volume 9.5 Neutrophils % 88.9 H Lymphocytes % 8.6 L Monocytes % 1.9 Eosinophils % 0.1 Basophils % 0.2 Nucleated Red Blood Cells % 0.0 Neutrophils # 12.6 H Lymphocytes # 1.2 Monocytes # 0.3 Eosinophils # 0.0 Basophils # 0.0 Nucleated Red Blood Cells # 0.0 Sodium Level 143 Potassium Level 4.0 Chloride Level 111 H Carbon Dioxide Level 20 L Anion Gap 16 Blood Urea Nitrogen 10 Creatinine 0.51 Glucose Level 189 Calcium Level 8.6 Total Bilirubin 0.1 L Direct Bilirubin 0.00 Indirect Bilirubin 0.1 Aspartate Amino Transf (AST/SGOT) 42 Alanine Aminotransferase (ALT/SGPT) 77 H Alkaline Phosphatase 119 Total Protein 7.8 # Albumin 4.1 Globulin 3.70 H Albumin/Globulin Ratio 1.10 Thyroid Stimulating Hormone (TSH) < 0.015 L Free Thyroxine 3.22 H Free Triiodothyronine (T3) pg/mL 9.34 H Medications Medications Current Medications Potassium Iodide (Sski) 5 drop Q8 PO ; Start 10/10/17 at 04:30 Hydrocortisone 100 mg 100 mg Q6H IV Last administered on 10/10/17 11:13; Admin Dose 100 MG; Start 10/10/17 at 11:00 Sodium Chloride (NS) 1,000 ml @ 100 mls/hr Q10H IV Last administered on 03:40; Admin Dose 100 MLS/HR; Start 10/10/17 at 02:40 Ondansetron HCl (Zofran Inj) 4 mg Q6H PRN IV NAUSEA AND/OR VOMITING; Start at 03:00 Acetaminophen (Tylenol Liquid) 650 mg Q6H PRN PO PAIN LEVEL 1-3 OR FEVER; Start 10/10/17 at 03:00 Morphine Sulfate (morphine) 2 mg Q4H PRN IV PAIN LEVEL 7-10; Start 10/10/17 at 03:00 Propranolol HCl (Inderal) 20 mg Q6 PO Last administered on 10/10/17 14:07; Admin Dose 20 MG; Start 10/10/17 at 09:00 Propylthiouracil (Ptu) 200 mg Q6 PO Last administered on 10/10/17 09:25; Admin Dose 200 MG; Start 10/10/17 at 10:00 CRISTEL HILL MD Oct 10, 2017 15:07
--- NOTE | 2017-10-10 17:29 | CONS ---
Date/Time of Note Date/Time of Note DATE: 10/10/17 TIME: 17:24 Assessment/Plan Assessment/Plan Problems: (1) Thyroid crisis or storm Status: Acute Comment: This patient is non-thyroid storm but she is quite hyperthyroid. In the history I have gotten much different history than my colleagues have. Simple way to resolve this would be to find an elevated sedimentation rate or no thyroid uptake on thyroid scanning. If there is significant thyroid uptake in this points to Graves' disease which case it is a long-term problem should be an appropriate candidate for radioactive iodine ablation. If on the other hand there is no measurable thyroid uptake than this is acute thyroiditis and steroid she was given the emergency room should help smooth this over quite nicely. Until we sort this to out I would continue her on the PTU. Please note she may transition of methimazole if antithyroid drug therapy is appropriate in the next 24 hours for simplicity sake. Qualifiers: Qualified Code: E05.91 - Thyrotoxicosis with thyrotoxic crisis, unspecified thyrotoxicosis type Consultation Date/Type/Reason Admit Date/Time Number 2016 Date of Consultation: Oct 10, 2017 Type of Consultation: Endocrinology Reason for Consultation Hyperthyroidism with tenderness in the area of the thyroid bed and variable history about duration of symptoms Referring Provider: CRISTEL HILL MD Hx of Present Illness 37-year-old female who was admitted with thyrotoxicosis. Please note she was labeled as having thyroid storm but did not have fever tachycardia [id number]. As I obtained the history from the patient she had been checked for thyroid disorder roughly 2-3 years ago but and been told everything was okay. Please note this differs from what the emergency room physician and the admission H&P state. In the last 2 weeks as I understood the history she developed tenderness in the area of the neck with fevers by tactile sensation but not measured. She developed multiple symptoms of thyrotoxicosis over the last 2 weeks and presented to the emergency room. In our emergency room she was obviously hyperthyroid Constitutional: febrile ENT: no complaints Respiratory: no complaints Cardiovascular: palpitations Gastrointestinal: diarrhea Genitourinary: no complaints Musculoskeletal: no complaints Skin: no complaints Psychological: anxiety, nl mood/affect Past Medical History Medical History: no pertinent history Past Surgical History Past Surgical Hx: noncontributory Family History Significant Family History: no pertinent family hx Social History Alcohol Use: none Smoking Status: Never smoker Drug Use: none Exam/Review of Systems Vital Signs Vitals Vital Signs Date Time Temp Pulse Resp B/P Pulse Ox O2 Delivery O2 Flow Rate FiO2 10/10/17 16:24 80 10/10/17 16:03 98.0 19 110/52 94 10/10/17 11:09 Room Air 10/10/17 02:41 2.0 Exam Constitutional: alert, oriented, well developed Psych: nl mood/affect, no complaints Head: atraumatic, normocephalic Eyes: EOMI, PERRL (No exophthalmos), nl conjunctiva, nl lids, nl sclera ENMT: mucosa pink and moist, nl external ears & nose, nl lips & teeth, nl nasal mucosa & septum Neck: supple, thyromegaly (Tenderness in the area of the thyroid bed) Respiratory: clear to auscultation, normal air movement Cardiovascular: nl pulses, regular rate and rhythm Gastrointestinal: nl liver, spleen, non-tender, soft Results Result Diagram: 10/10/1752110/10/17521 Results 24 hrs Laboratory Tests Test 10/09/17 23:40 10/10/17 00:05 10/10/17 03:32 10/10/17 05:00 White Blood Count 12.4 H Red Blood Count 4.62 # Hemoglobin 13.8 # Hematocrit 40.1 # Mean Corpuscular Volume 86.8 Mean Corpuscular Hemoglobin 29.9 Mean Corpuscular Hemoglobin Concent 34.4 Red Cell Distribution Width 12.3 Platelet Count 493 H Mean Platelet Volume 9.6 Neutrophils % 69.2 Lymphocytes % 21.7 Monocytes % 8.0 Eosinophils % 0.6 Basophils % 0.2 Nucleated Red Blood Cells % 0.0 Neutrophils # 8.6 H Lymphocytes # 2.7 Monocytes # 1.0 H Eosinophils # 0.1 Basophils # 0.0 Nucleated Red Blood Cells # 0.0 Prothrombin Time 12.9 Prothrombin Time Ratio 1.0 INR International Normalized Ratio 0.97 Activated Partial Thromboplast Time 33.1 Urine Color YELLOW Urine Clarity SLIGHTLY CLOUDY A Urine pH 7.0 Urine Specific [place] 1.018 Urine Ketones NEGATIVE Urine Nitrite NEGATIVE Urine Bilirubin NEGATIVE Urine Urobilinogen NEGATIVE Urine Leukocyte Esterase NEGATIVE Urine Microscopic RBC 3 Urine Microscopic WBC 0 Urine Bacteria FEW A Urine Hemoglobin NEGATIVE Urine Glucose 1+ H Urine Total Protein NEGATIVE Sodium Level 144 Potassium Level 4.1 Chloride Level 108 Carbon Dioxide Level 26 Anion Gap 14 Blood Urea Nitrogen 11 Creatinine 0.69 Glucose Level 155 Calcium Level 9.6 Total Bilirubin 0.0 L Direct Bilirubin 0.00 Indirect Bilirubin 0.0 Aspartate Amino Transf (AST/SGOT) 34 Alanine Aminotransferase (ALT/SGPT) 71 H Alkaline Phosphatase 118 Troponin I < 0.012 Total Protein 8.8 H Albumin 4.5 Globulin 4.30 H Albumin/Globulin Ratio 1.04 Free Thyroxine Index 6.44 H Thyroxine (T4) 15.7 H Triiodothyronine (T3) Uptake 41.0 H Lactic Acid Level 2.0 1.1 1.2 Test 10/10/17 05:22 White Blood Count 14.1 H Red Blood Count 4.29 Hemoglobin 12.2 Hematocrit 36.9 L Mean Corpuscular Volume 86.0 Mean Corpuscular Hemoglobin 28.4 L Mean Corpuscular Hemoglobin Concent 33.1 Red Cell Distribution Width 12.5 Platelet Count 415 Mean Platelet Volume 9.5 Neutrophils % 88.9 H Lymphocytes % 8.6 L Monocytes % 1.9 Eosinophils % 0.1 Basophils % 0.2 Nucleated Red Blood Cells % 0.0 Neutrophils # 12.6 H Lymphocytes # 1.2 Monocytes # 0.3 Eosinophils # 0.0 Basophils # 0.0 Nucleated Red Blood Cells # 0.0 Sodium Level 143 Potassium Level 4.0 Chloride Level 111 H Carbon Dioxide Level 20 L Anion Gap 16 Blood Urea Nitrogen 10 Creatinine 0.51 Glucose Level 189 Calcium Level 8.6 Total Bilirubin 0.1 L Direct Bilirubin 0.00 Indirect Bilirubin 0.1 Aspartate Amino Transf (AST/SGOT) 42 Alanine Aminotransferase (ALT/SGPT) 77 H Alkaline Phosphatase 119 Total Protein 7.8 # Albumin 4.1 Globulin 3.70 H Albumin/Globulin Ratio 1.10 Thyroid Stimulating Hormone (TSH) < 0.015 L Free Thyroxine 3.22 H Free Triiodothyronine (T3) pg/mL 9.34 H Medications Medications Current Medications Potassium Iodide (Sski) 5 drop Q8 PO ; Start 10/10/17 at 04:30 Hydrocortisone 100 mg 100 mg Q6H IV Last administered on 10/10/17t 11:13; Admin Dose 100 MG; Start 10/10/17 at 11:00 Sodium Chloride (NS) 1,000 ml @ 100 mls/hr Q10H IV Last administered on 03:40; Admin Dose 100 MLS/HR; Start 10/10/17 at 02:40 Ondansetron HCl (Zofran Inj) 4 mg Q6H PRN IV NAUSEA AND/OR VOMITING; Start at 03:00 Acetaminophen (Tylenol Liquid) 650 mg Q6H PRN PO PAIN LEVEL 1-3 OR FEVER; Start 10/10/17 at 03:00 Morphine Sulfate (morphine) 2 mg Q4H PRN IV PAIN LEVEL 7-10; Start 10/10/17 at 03:00 Propranolol HCl (Inderal) 20 mg Q6 PO Last administered on 10/10/17 14:07; Admin Dose 20 MG; Start 10/10/17 at 09:00 Propylthiouracil (Ptu) 200 mg Q6 PO Last administered on 10/10/17 16:28; Admin Dose 200 MG; Start 10/10/17 at 10:00 ANNIE BRISCOE MD Oct 10, 2017 17:29
[2017-10-11] VITALS (10 sets, daily range): BP systolic 110–138; BP diastolic 49–65; PULSE 81–89; RESP 16–18
[2017-10-11] MEDS: PROPRANOLOL 20 MG TAB PO SCH ×5 (00:22→23:37)
[2017-10-11] MEDS: PROPYLTHIOURACIL 50 MG TAB PO SCH ×5 (00:23→23:35)
[2017-10-11] MEDS: HYDROCORTISONE 100 MG INJ IV SCH ×4 (05:47→23:34)
[2017-10-11] MEDS: POTASSIUM IODIDE 20 DROPS/ML 30 ML BTL PO SCH ×3 (05:48→21:22)
[2017-10-11] MEDS: SOD CHLORIDE 0.9% 1,000 ML IV SCH ×4 (06:17→23:34)
[2017-10-11 08:08] LABS: ABNORMAL IP MESSAGE 1; BASOPHILS % 0.1 % (0.0-2.0); HEMATOCRIT 37.2 % (37.0-47.0); HEMOGLOBIN 12.5 g/dl (12.0-16.0); LYMPHOCYTES # 1.7 10^3/ul (0.8-2.9); LYMPHOCYTES % 6.8 % (15.0-51.0); MEAN CORPUSCULAR HEMOGLOBIN 29.1 pg (29.0-33.0); MEAN CORPUSCULAR HGB CONC 33.6 g/dl (32.0-37.0); MEAN CORPUSCULAR VOLUME 86.5 fl (82.0-101.0); MEAN PLATELET VOLUME 9.7 fl (7.4-10.4); MONOCYTE # 1.3 10^3/ul (0.3-0.9); MONOCYTES % 5.3 % (0.0-11.0); NEUTROPHIL # 21.5 10^3/ul (1.6-7.5); NEUTROPHILS % 87.1 % (39.0-77.0); PLATELET COUNT 484 10^3/UL (140-415); RED CELL DISTRIBUTION WIDTH 12.4 % (11.5-14.5); WHITE BLOOD COUNT 24.7 10^3/ul (4.8-10.8)
[2017-10-11 08:18] LABS: POSITIVE DIFF @See below
[2017-10-11 08:31] LABS: ALBUMIN 4.1 g/dl (3.3-4.9); CALCIUM 9.5 mg/dl (8.4-10.2); CREATININE 0.45 mg/dl (0.44-1.00); MAGNESIUM 2.3 mg/dl (1.7-2.5); PHOSPHORUS 2.7 mg/dl (2.5-4.9); POTASSIUM 4.8 mmol/L (3.5-5.1)
--- NOTE | 2017-10-11 13:39 | CONS ---
Date/Time of Note Date/Time of Note DATE: 10/11/17 TIME: 13:35 Assessment/Plan Assessment/Plan Chief Complaint/Hosp Course 37-year-old female who was admitted with thyrotoxicosis. Please note she was labeled as having thyroid storm but did not have fever tachycardia [id number]. As I obtained the history from the patient she had been checked for thyroid disorder roughly 2-3 years ago but and been told everything was okay. Please note this differs from what the emergency room physician and the admission H&P state. In the last 2 weeks as I understood the history she developed tenderness in the area of the neck with fevers by tactile sensation but not measured. She developed multiple symptoms of thyrotoxicosis over the last 2 weeks and presented to the emergency room. In our emergency room she was obviously hyperthyroid Problems: (1) Thyroid crisis or storm Status: Acute Comment: The patient has all the earmarks consistent with actually an acute thyroiditis based on my repeating the review of systems with her. The thyroid nuclear medicine study will help differentiate. If there is low uptake in this would be consistent with an acute thyroiditis with hyperthyroidism. Please note is actually quite rare to catch them in the hyperthyroid phase we usually see them afterward. Assuming that this is what this is and not long-term Graves ' disease then the treatment would be nonsteroidal anti-inflammatory drugs. If however the grave the nuclear medicine uptakes are elevated then the PTU will be appropriate although I would switch it over to methimazole for patient simplicity. Qualifiers: Thyrotoxicosis type: unspecified thyrotoxicosis type Qualified Code: E05.91 - Thyrotoxicosis with thyrotoxic crisis, unspecified thyrotoxicosis type Consultation Date/Type/Reason Admit Date/Time Oct 10, 2017 at 09:08 Initial Consult Date 10/10/17 Type of Consultation: Endocrinology Reason for Consultation Hyperthyroidism; Referring Provider: CRISTEL HILL MD 24 HR Interval Summary Free Text/Dictation Patient reports that since she is received the steroids that the tenderness in her neck is significantly decreased. Please see reports from the microbiology lab section Constitutional: no complaints Detailed Summary Respiratory: no complaints Cardiovascular: no complaints Gastrointestinal: no complaints (No dice diced versus symbol of gambling levels work) Genitourinary: no complaints Exam/Review of Systems Vital Signs Vitals Vital Signs Date Time Temp Pulse Resp B/P Pulse Ox O2 Delivery O2 Flow Rate FiO2 11/14/17 12:00 86 10/11/17 11:48 98.2 16 110/49 96 10/10/17 11:09 Room Air 10/10/17 02:41 2.0 Intake and Output 10/10/17 10/10/17 10/11/17 15:00 23:00 07:00 Intake Total 600 ml 720 ml Balance 600 ml 720 ml Exam Constitutional: alert, oriented Respiratory: clear to auscultation, normal air movement Cardiovascular: nl pulses, regular rate and rhythm Gastrointestinal: nl liver, spleen, non-tender (Accident when the nerve he has a narcotic TILE FINISHER is thoughtful), soft Results Result Diagram: 10/11/17 0746 10/11/17 0746 Results 24 hrs Laboratory Tests Test 10/11/17 07:46 White Blood Count 24.7 #H Red Blood Count 4.30 Hemoglobin 12.5 Hematocrit 37.2 Mean Corpuscular Volume 86.5 Mean Corpuscular Hemoglobin 29.1 Mean Corpuscular Hemoglobin Concent 33.6 Red Cell Distribution Width 12.4 Platelet Count 484 H Mean Platelet Volume 9.7 Neutrophils % 87.1 H Lymphocytes % 6.8 L Monocytes % 5.3 Eosinophils % 0.0 Basophils % 0.1 Nucleated Red Blood Cells % 0.0 Neutrophils # 21.5 H Lymphocytes # 1.7 Monocytes # 1.3 H Eosinophils # 0.0 Basophils # 0.0 Nucleated Red Blood Cells # 0.0 Erythrocyte Sedimentation Rate 42 H Sodium Level 143 Potassium Level 4.8 Chloride Level 112 H Carbon Dioxide Level 22 Anion Gap 14 Blood Urea Nitrogen 9 Creatinine 0.45 Glucose Level 203 Calcium Level 9.5 Phosphorus Level 2.7 Magnesium Level 2.3 C-Reactive Protein 2.2 H Albumin 4.1 Thyroid Stimulating Hormone (TSH) < 0.015 L Medications Medications Current Medications Potassium Iodide (Sski) 5 drop Q8 PO Last administered on 10/11/17 05:48; Admin Dose 5 DROP; Start 10/10/17 at 04:30 Hydrocortisone 100 mg 100 mg Q6H IV Last administered on 10/11/17 05:47; Admin Dose 100 MG; Start 10/10/17 at 11:00 Sodium Chloride (NS) 1,000 ml @ 100 mls/hr Q10H IV Last administered on 08:40; Admin Dose 100 MLS/HR; Start 10/10/17 at 02:40 Ondansetron HCl (Zofran Inj) 4 mg Q6H PRN IV NAUSEA AND/OR VOMITING; Start at 03:00 Acetaminophen (Tylenol Liquid) 650 mg Q6H PRN PO PAIN LEVEL 1-3 OR FEVER; Start 10/10/17 at 03:00 Morphine Sulfate (morphine) 2 mg Q4H PRN IV PAIN LEVEL 7-10; Start 10/10/17 at 03:00 Propranolol HCl (Inderal) 20 mg Q6 PO Last administered on 10/11/17 00:22; Admin Dose 20 MG; Start 10/10/17 at 09:00 Propylthiouracil (Ptu) 200 mg Q6 PO Last administered on 10/11/17 05:48; Admin Dose 200 MG; Start 10/10/17 at 10:00 ANNIE BRISCOE MD Oct 11, 2017 13:39
[2017-10-11] MEDS ORDERED: LEVOFLOXACIN 500MG/D5W (PMX) 100 ML IVPB SCH (14:30)
--- NOTE | 2017-10-11 14:53 | PN ---
Date/Time of Note Date/Time of Note DATE: 10/11/17 TIME: 14:52 Assessment/Plan VTE Prophylaxis VTE Prophylaxis Intervention: ambulation Lines/Catheters IV [facility] (from [facility] Mid Line Urinary Cath still in place: No Assessment/Plan Chief Complaint/Hosp Course 1. Thyrotoxicosis. The patient on propylthiouracil and propranolol. The patient being followed by endocrinology. The patient is scheduled for nuclear medicine thyroid uptake study. 2. Sinus tachycardia. Probably secondary to #1. Resolved. 3. Gram-negative bacteremia. The patient shows no evidence of any sepsis. Nevertheless, the patient will be started on appropriate antibiotics. Infectious disease consult will be obtained. 4. Leukocytosis. Etiology unclear. Etiology could be from steroid use versus from underlying sepsis. Monitor. 5. Fluids, electrolytes, and nutrition. Regular diet. 6. DVT prophylaxis. Ambulation. 7. Plan. Continue PTU as per endocrinology. Await thyroid uptake scan. Start empiric antibiotics. Obtain repeat blood cultures. Obtain infectious diseases consult. Case discussed with Dr. Galdamez. Problems: Subjective 24 Hr Interval Summary Free Text/Dictation Denies any palpitations. Denies any neck pain. Exam/Review of Systems Vital Signs Vitals Vital Signs Date Time Temp Pulse Resp B/P Pulse Ox O2 Delivery O2 Flow Rate FiO2 10/11/17 12:00 86 10/11/17 11:48 98.2 16 110/49 96 10/10/17 11:09 Room Air 10/10/17 02:41 2.0 Intake and Output 10/10/17 10/10/17 10/11/17 15:00 23:00 07:00 Intake Total 600 ml 720 ml Balance 600 ml 720 ml Exam General: Adequately build 37 year-old female lying in bed in no apparent distress. HEENT: Normocephalic, atraumatic. Eyes: Anicteric sclerae, conjunctivae clear. ENT: Nasal septum midline, oral mucosa moist. Neck supple, no JVD noticed. Respiratory: Bilaterally clear breath sounds. No use of accessory muscles of respiration. No adventitious breath sounds. Cardiovascular: S1, S2 heard. No murmurs or gallops. Abdomen: Soft, nontender, and nondistended. Bowel sounds positive in all 4 quadrants. Genitourinary: Deferred. Extremities: No cyanosis, no clubbing, no edema. Peripheral pulses palpable. Neurologic: Cranial nerves II through XII grossly intact. The patient is awake, alert, and oriented. Skin: Normal skin turgor. No skin rashes. Results Result Diagram: 10/11/17 0746 10/11/17 0746 Results 24 hrs Laboratory Tests Test 10/11/17 07:46 White Blood Count 24.7 #H Red Blood Count 4.30 Hemoglobin 12.5 Hematocrit 37.2 Mean Corpuscular Volume 86.5 Mean Corpuscular Hemoglobin 29.1 Mean Corpuscular Hemoglobin Concent 33.6 Red Cell Distribution Width 12.4 Platelet Count 484 H Mean Platelet Volume 9.7 Neutrophils % 87.1 H Lymphocytes % 6.8 L Monocytes % 5.3 Eosinophils % 0.0 Basophils % 0.1 Nucleated Red Blood Cells % 0.0 Neutrophils # 21.5 H Lymphocytes # 1.7 Monocytes # 1.3 H Eosinophils # 0.0 Basophils # 0.0 Nucleated Red Blood Cells # 0.0 Erythrocyte Sedimentation Rate 42 H Sodium Level 143 Potassium Level 4.8 Chloride Level 112 H Carbon Dioxide Level 22 Anion Gap 14 Blood Urea Nitrogen 9 Creatinine 0.45 Glucose Level 203 Calcium Level 9.5 Phosphorus Level 2.7 Magnesium Level 2.3 C-Reactive Protein 2.2 H Albumin 4.1 Thyroid Stimulating Hormone (TSH) < 0.015 L Medications Medications Current Medications Potassium Iodide (Sski) 5 drop Q8 PO Last administered on 10/11/17 05:48; Admin Dose 5 DROP; Start 10/10/17 at 04:30 Hydrocortisone 100 mg 100 mg Q6H IV Last administered on 10/11/17 12:33; Admin Dose 100 MG; Start 10/10/17 at 11:00 Sodium Chloride (NS) 1,000 ml @ 100 mls/hr Q10H IV Last administered on 08:40; Admin Dose 100 MLS/HR; Start 10/10/17 at 02:40 Ondansetron HCl (Zofran Inj) 4 mg Q6H PRN IV NAUSEA AND/OR VOMITING; Start at 03:00 Acetaminophen (Tylenol Liquid) 650 mg Q6H PRN PO PAIN LEVEL 1-3 OR FEVER; Start 10/10/17 at 03:00 Morphine Sulfate (morphine) 2 mg Q4H PRN IV PAIN LEVEL 7-10; Start 10/10/17 at 03:00 Propranolol HCl (Inderal) 20 mg Q6 PO Last administered on 10/11/17 12:36; Admin Dose 20 MG; Start 10/10/17 at 09:00 Propylthiouracil 200 mg 200 mg Q6 PO Last administered on 10/11/17 12:34; Admin Dose 200 MG; Start 10/10/17 at 10:00 Levofloxacin/ Dextrose (Levaquin 500mg/ D5W 100 ml (Pmx)) 100 ml @ 100 mls/hr Q24H IVPB ; Start 10/11/17 at 14:30 ADEEL POWER NP Oct 11, 2017 14:53
--- NOTE | 2017-10-11 15:53 | CONS ---
DATE OF ADMISSION: 10/10/2017 DATE OF CONSULTATION: 10/11/2017 TYPE OF CONSULTATION: Infectious Disease. REASON FOR CONSULTATION: Antibiotic management. HISTORY OF PRESENT ILLNESS: Saba Valderrama is a 37-year-old female with a history of thyroid disease, who comes in with fever and chills and is being seen for antibiotic management. Past problems include: 1. History of thyroid disorder. As noted, the patient presented with fever and chills. She was fe eling anxious, tired and very uncomfortable. She was told she had a thyroid problem 3 years ago dur ing and during another last year she did not have the same thyroid problem. In the emergency room, she was tachycardic with a heart rate of 135, febrile to 102. Her thyroxine was found to be ____ 16. No TSH was done. She was given IV beta santosh, propylthiouracil or PTU, and steroids. She then became hemodynamically stable. She comes in with likely Graves' disease. She was seen in consultation by Dr. Abad, a thyroid specialist. He felt that it was not thyroid storm, but she was quite hyperthryroid. He recommended checking her sedimentation rate, and looking to se e if there was no thyroid uptake on thyroid scanning. If there is significant uptake, this points t o Graves' disease, in which case it is a long-term problem and she is a candidate for radioactive io dine ablation. If there is no measurable thyroid uptake, this is acute thyroiditis and steroids jose angel uld help smooth this problem over. Methimazole is also another possibility. PAST MEDICAL HISTORY: Operations as outlined. FAMILY HISTORY: Noncontributory. SOCIAL HISTORY: She does not smoke, drink or abuse drugs. ALLERGIES: NONE TO PENICILLIN, SULFA OR FOODS. MEDICATIONS: Per chart. REVIEW OF SYSTEMS: As per HPI. PHYSICAL EXAMINATION: GENERAL: The patient is a well-developed, well-nourished female, alert, responsive, oriented x3. N o acute distress. VITAL SIGNS: Stable. She is afebrile. SKIN: Without generalized rash. HEENT: Within normal limits. NECK: Supple. Lymph nodes, none palpable. She has some thyromegaly with some tenderness. CHEST: Decreased breath sounds at the bases. HEART: Without murmur or gallop. ABDOMEN: Soft, nontender, without organosplenomegaly or masses. EXTREMITIES: Without cyanosis, clubbing, or edema. RECTAL AND GENITAL: Exams deferred. NEUROLOGIC: No focal neurological abnormalities. Of interest is the fact that her blood cultures a re growing gram-negative rods. A urine culture is negative after 24 hours. Chest x-ray shows eleva uli right hemidiaphragm with mild right basilar subsegmental atelectasis. A thyroid ultrasound shows nonspecific small subcentimeter hyperechoic nodules in the bilateral lobes without worrisome sonogr aphic features, mild heterogeneous echotexture of the thyroid gland, vascularity of the thyroid glan d is normal. Her white count today is 24.7. IMPRESSION: My impression is the patient has Gram-negative edouard sepsis. Blood cultures were repeate d today. She is currently on levofloxacin, which is not adequate in this case, although it may be e ffective; we are going to switch her over to meropenem until we find out where the source of her sep sis is. Her urine was negative for nitrite and leukocyte esterase. Her chest x-ray is negative. S o, her fever and chills may be related to thyroid, but is more likely related to sepsis. I will dic mast my findings to the hospitalist and also to Dr. Abad. Dictated By: JAMI HER MD, JD/NAE Conf#: [id number] DID#: [id number]
[2017-10-11] MEDS: MEROPENEM 500MG/50 ML (PMX) 50 ML IVPB SCH ×2 (17:36→23:44)
[2017-10-12] VITALS (11 sets, daily range): BP systolic 116–145; BP diastolic 54–71; PULSE 75–82; RESP 16–19
[2017-10-12] MEDS: HYDROCORTISONE 100 MG INJ IV SCH (05:37)
[2017-10-12] MEDS: PROPYLTHIOURACIL 50 MG TAB PO SCH (05:37)
[2017-10-12] MEDS: POTASSIUM IODIDE 20 DROPS/ML 30 ML BTL PO SCH (05:38)
[2017-10-12] MEDS: PROPRANOLOL 20 MG TAB PO SCH ×2 (05:39→12:00)
[2017-10-12 07:41] LABS: BASOPHILS % 0.1 % (0.0-2.0); HEMATOCRIT 35.3 % (37.0-47.0); HEMOGLOBIN 11.7 g/dl (12.0-16.0); LYMPHOCYTES # 2.9 10^3/ul (0.8-2.9); LYMPHOCYTES % 16.9 % (15.0-51.0); MEAN CORPUSCULAR HEMOGLOBIN 28.7 pg (29.0-33.0); MEAN CORPUSCULAR HGB CONC 33.1 g/dl (32.0-37.0); MEAN CORPUSCULAR VOLUME 86.7 fl (82.0-101.0); MEAN PLATELET VOLUME 9.6 fl (7.4-10.4); MONOCYTE # 0.7 10^3/ul (0.3-0.9); MONOCYTES % 3.9 % (0.0-11.0); NEUTROPHIL # 13.5 10^3/ul (1.6-7.5); NEUTROPHILS % 77.5 % (39.0-77.0); PLATELET COUNT 475 10^3/UL (140-415); RED BLOOD COUNT 4.07 10^6/ul (4.20-5.40); RED CELL DISTRIBUTION WIDTH 12.4 % (11.5-14.5); WHITE BLOOD COUNT 17.4 10^3/ul (4.8-10.8)
[2017-10-12 08:03] LABS: ALBUMIN 3.8 g/dl (3.3-4.9); CALCIUM 9.1 mg/dl (8.4-10.2); CREATININE 0.49 mg/dl (0.44-1.00); MAGNESIUM 2.5 mg/dl (1.7-2.5); PHOSPHORUS 3.5 mg/dl (2.5-4.9); POTASSIUM 4.6 mmol/L (3.5-5.1)
[2017-10-12] MEDS: MEROPENEM 500MG/50 ML (PMX) 50 ML IVPB SCH (09:36)
[2017-10-12] MEDS ORDERED: TOBRAMYCIN IV PER PHARMACY XX SCH (10:30)
--- NOTE | 2017-10-12 10:37 | PN ---
Date/Time of Note Date/Time of Note DATE: 10/12/17 TIME: 10:34 Assessment/Plan VTE Prophylaxis VTE Prophylaxis Intervention: ambulation Lines/Catheters [facility] Urinary Cath still in place: No Assessment/Plan Chief Complaint/Hosp Course 1. Thyrotoxicosis. The patient on propylthiouracil and propranolol. The patient being followed by endocrinology. The patient is scheduled for nuclear medicine thyroid uptake study. 2. Sinus tachycardia. Probably secondary to #1. Resolved. 3. Sepsis with underlying Pseudomonas aeruginosa bacteremia. Etiology unclear. On antimicrobials as per infectious diseases. 4. Leukocytosis. Etiology unclear. Etiology could be from steroid use versus from underlying sepsis. Monitor. 5. Fluids, electrolytes, and nutrition. Regular diet. 6. DVT prophylaxis. Ambulation. 7. Gastrointestinal prophylaxis. Will continue patient on histamine 2 receptor santosh since patient is getting high-dose steroids. 8. Plan. Continue PTU as per endocrinology. Await thyroid uptake scan. Await further recommendations from consultants. Tapering of steroids as per endocrinology. Case discussed with Dr. Galdamez. Problems: Subjective 24 Hr Interval Summary Free Text/Dictation The patient remains afebrile. Denies any throat pain. Denies any palpitations. Remains in sinus rhythm. Exam/Review of Systems Vital Signs Vitals Vital Signs Date Time Temp Pulse Resp B/P Pulse Ox O2 Delivery O2 Flow Rate FiO2 10/12/17 08:29 76 10/12/17 07:52 98.1 16 143/71 98 10/10/17 11:09 Room Air 10/10/17 02:41 2.0 Intake and Output 10/11/17 10/11/17 10/12/17 15:00 23:00 07:00 Intake Total 1180 ml 500 ml Balance 1180 ml 500 ml Exam General: Adequately build 37 year-old female lying in bed in no apparent distress. HEENT: Normocephalic, atraumatic. Eyes: Anicteric sclerae, conjunctivae clear. ENT: Nasal septum midline, oral mucosa moist. Neck supple, no JVD noticed. Respiratory: Bilaterally clear breath sounds. No use of accessory muscles of respiration. No adventitious breath sounds. Cardiovascular: S1, S2 heard. No murmurs or gallops. Abdomen: Soft, nontender, and nondistended. Bowel sounds positive in all 4 quadrants. Genitourinary: Deferred. Extremities: No cyanosis, no clubbing, no edema. Peripheral pulses palpable. Neurologic: Cranial nerves II through XII grossly intact. The patient is awake, alert, and oriented. Skin: Normal skin turgor. No skin rashes. Results Result Diagram: 10/12/17 0632 10/12/17 0632 Results 24 hrs Laboratory Tests Test 10/12/17 06:32 White Blood Count 17.4 #H Red Blood Count 4.07 L Hemoglobin 11.7 L Hematocrit 35.3 L Mean Corpuscular Volume 86.7 Mean Corpuscular Hemoglobin 28.7 L Mean Corpuscular Hemoglobin Concent 33.1 Red Cell Distribution Width 12.4 Platelet Count 475 H Mean Platelet Volume 9.6 Neutrophils % 77.5 H Lymphocytes % 16.9 Monocytes % 3.9 Eosinophils % 0.0 Basophils % 0.1 Nucleated Red Blood Cells % 0.0 Neutrophils # 13.5 H Lymphocytes # 2.9 Monocytes # 0.7 Eosinophils # 0.0 Basophils # 0.0 Nucleated Red Blood Cells # 0.0 Sodium Level 143 Potassium Level 4.6 Chloride Level 112 H Carbon Dioxide Level 29 Anion Gap 7 L Blood Urea Nitrogen 9 Creatinine 0.49 Glucose Level 144 # Calcium Level 9.1 Phosphorus Level 3.5 Magnesium Level 2.5 Albumin 3.8 Medications Medications Current Medications Potassium Iodide (Sski) 5 drop Q8 PO Last administered on 10/12/17 05:38; Admin Dose 5 DROP; Start 10/10/17 at 04:30 Hydrocortisone 100 mg 100 mg Q6H IV Last administered on 10/12/17 05:37; Admin Dose 100 MG; Start 10/10/17 at 11:00 Sodium Chloride (NS) 1,000 ml @ 100 mls/hr Q10H IV Last administered on 23:34; Admin Dose 100 MLS/HR; Start 10/10/17 at 02:40 Ondansetron HCl (Zofran Inj) 4 mg Q6H PRN IV NAUSEA AND/OR VOMITING; Start at 03:00 Acetaminophen (Tylenol Liquid) 650 mg Q6H PRN PO PAIN LEVEL 1-3 OR FEVER; Start 10/10/17 at 03:00 Morphine Sulfate (morphine) 2 mg Q4H PRN IV PAIN LEVEL 7-10; Start 10/10/17 at 03:00 Propranolol HCl (Inderal) 20 mg Q6 PO Last administered on 10/11/17 23:37; Admin Dose 20 MG; Start 10/10/17 at 09:00 Propylthiouracil (Ptu) 200 mg Q6 PO Last administered on 10/12/17 05:37; Admin Dose 200 MG; Start 10/10/17 at 10:00 Tobramycin (Tobramycin Iv Per Pharmacy) TOBRAMYCIN PER PHARMACY NOTE XX ; Start 10/12/17 at 10:30; Status UNV Procedures Procedures Name: ARIES WHITNEY Age/Sex: 37/F Attend Dr: BRENDA EGAN MD Acct: [id number] MR# : [id number] : 1980 Location: [facility] [place] 5555-A Admit: 10/10/17 Specimen: [id number] Status: Complete Shekhar: 10/10/17 Rcvd: 10/10 Source: BLOOD Sp Descrip: Procedure Result Microbiology BLOOD CULTURE Final BCULT GRAM BOTTLE 1 Gram negative rods . seen on gram stain of the broth Organism 1 PSEUDOMONAS AERUGINOSA CRITICAL TEST VALUE BTL 1 . PHONED TO & READ BACK BY IRENE KAUR @ 2901 10/10/17 BY RADHA Christianson RX --------- --- AMIKACIN 4 S AZTREONAM R CEFTAZIDIME 8 S CIPROFLOXACIN >=4 R GENTAMICIN 4 S IMIPENEM >=16 R LEVOFLOXACIN >=8 R TOBRAMYCIN <=1 S PIPERACILLIN/TAZOBACTAM S ................................................................................ ............ Flags: Critical Hi = *H Critical Lo = *L Microbiology Abnormal = * Abnormal Hi = H Abnormal Lo = L Blood Bank Abnormal = * Susceptability Flags: S = Sensitive R = Resistant I = Intermediate END OF REPORT ADEEL POWER NP Oct 12, 2017 10:37
[2017-10-12] MEDS: FAMOTIDINE 20 MG TAB PO SCH ×2 (11:30→20:51)
[2017-10-12] MEDS: DEXTROSE 5% IVPB SCH (12:41)
[2017-10-12] MEDS: TOBRAMYCIN IVPB SCH (12:41)
[2017-10-12] MEDS ORDERED: METHIMAZOLE 5 MG TAB PO ONE (13:28)
--- NOTE | 2017-10-12 13:28 | CONS ---
Date/Time of Note Date/Time of Note DATE: 10/12/17 TIME: 13:26 Assessment/Plan Assessment/Plan Chief Complaint/Hosp Course 37-year-old female who was admitted with thyrotoxicosis. Please note she was labeled as having thyroid storm but did not have fever tachycardia [id number]. As I obtained the history from the patient she had been checked for thyroid disorder roughly 2-3 years ago but and been told everything was okay. Please note this differs from what the emergency room physician and the admission H&P state. In the last 2 weeks as I understood the history she developed tenderness in the area of the neck with fevers by tactile sensation but not measured. She developed multiple symptoms of thyrotoxicosis over the last 2 weeks and presented to the emergency room. In our emergency room she was obviously hyperthyroid Problems: (1) Bacteremia due to Pseudomonas Status: Acute Comment: Infectious diseases working with the patient and the primary team is trying to find a source for this rather interesting laboratory finding (2) Thyroid crisis or storm Status: Acute Comment: I am not going to be able to do the nuclear medicine thyroid uptake and scan because patient's been receiving continuously SSKI. These note the orders that were originally written for what you would given for storm except this patient did not ever have thyroid storm. Because of the SSKI and iodine saturation the scan is likely not to be able not able to be interpreted. As such we will treat her presumptively and I will switch her over to methimazole. Steroids are no longer necessary and the beta-blockers are no longer necessary Qualifiers: Thyrotoxicosis type: unspecified thyrotoxicosis type Qualified Code: E05.91 - Thyrotoxicosis with thyrotoxic crisis, unspecified thyrotoxicosis type Consultation Date/Type/Reason Admit Date/Time Oct 10, 2017 at 09:08 Initial Consult Date 10/10/17 Type of Consultation: Endocrinology Reason for Consultation Hyperthyroidism; Pseudomonas bacteremia Referring Provider: CRISTEL HILL MD 24 HR Interval Summary Constitutional: improved Detailed Summary Respiratory: no complaints Cardiovascular: no complaints Gastrointestinal: no complaints Genitourinary: no complaints Exam/Review of Systems Vital Signs Vitals Vital Signs Date Time Temp Pulse Resp B/P Pulse Ox O2 Delivery O2 Flow Rate FiO2 10/12/17 12:14 77 10/12/17 11:46 98.0 16 140/54 97 10/10/17 11:09 Room Air 10/10/17 02:41 2.0 Intake and Output 10/11/17 10/11/17 10/12/17 14:59 22:59 06:59 Intake Total 1180 ml 500 ml Balance 1180 ml 500 ml Exam Constitutional: alert, oriented Cardiovascular: nl pulses, regular rate and rhythm Results Result Diagram: 10/12/17 0632 10/12/17 0632 Results 24 hrs Laboratory Tests Test 10/12/17 06:32 White Blood Count 17.4 #H Red Blood Count 4.07 L Hemoglobin 11.7 L Hematocrit 35.3 L Mean Corpuscular Volume 86.7 Mean Corpuscular Hemoglobin 28.7 L Mean Corpuscular Hemoglobin Concent 33.1 Red Cell Distribution Width 12.4 Platelet Count 475 H Mean Platelet Volume 9.6 Neutrophils % 77.5 H Lymphocytes % 16.9 Monocytes % 3.9 Eosinophils % 0.0 Basophils % 0.1 Nucleated Red Blood Cells % 0.0 Neutrophils # 13.5 H Lymphocytes # 2.9 Monocytes # 0.7 Eosinophils # 0.0 Basophils # 0.0 Nucleated Red Blood Cells # 0.0 Sodium Level 143 Potassium Level 4.6 Chloride Level 112 H Carbon Dioxide Level 29 Anion Gap 7 L Blood Urea Nitrogen 9 Creatinine 0.49 Glucose Level 144 # Hemoglobin A1c 5.8 Calcium Level 9.1 Phosphorus Level 3.5 Magnesium Level 2.5 Albumin 3.8 Medications Medications Current Medications Potassium Iodide (Sski) 5 drop Q8 PO Last administered on 10/12/17 05:38; Admin Dose 5 DROP; Start 10/10/17 at 04:30; Status Future Hold Hydrocortisone 100 mg 100 mg Q6H IV Last administered on 10/12/17 05:37; Admin Dose 100 MG; Start 10/10/17 at 11:00 Sodium Chloride (NS) 1,000 ml @ 100 mls/hr Q10H IV Last administered on 23:34; Admin Dose 100 MLS/HR; Start 10/10/17 at 02:40 Ondansetron HCl (Zofran Inj) 4 mg Q6H PRN IV NAUSEA AND/OR VOMITING; Start at 03:00 Acetaminophen (Tylenol Liquid) 650 mg Q6H PRN PO PAIN LEVEL 1-3 OR FEVER; Start 10/10/17 at 03:00 Morphine Sulfate (morphine) 2 mg Q4H PRN IV PAIN LEVEL 7-10; Start 10/10/17 at 03:00 Propranolol HCl (Inderal) 20 mg Q6 PO Last administered on 10/11/17 23:37; Admin Dose 20 MG; Start 10/10/17 at 09:00 Propylthiouracil (Ptu) 200 mg Q6 PO Last administered on 10/12/17 05:37; Admin Dose 200 MG; Start 10/10/17 at 10:00; Status Future Hold Tobramycin (Tobramycin Iv Per Pharmacy) TOBRAMYCIN PER PHARMACY NOTE XX ; Start 10/12/17 at 10:30 Famotidine 20 mg 20 mg BID PO Last administered on 10/12/17 11:30; Admin Dose 20 MG; Start 10/12/17 at 10:30 Tobramycin/ Dextrose (Tobramycin/D5W) 111 ml @ 111 mls/hr Q24H IVPB Last administered on 10/12/17 12:41; Admin Dose 111 MLS/HR; Start 10/12/17 at 12: 00 ANNIE BRISCOE MD Oct 12, 2017 13:28
--- NOTE | 2017-10-12 13:58 | PN ---
DATE: 10/12/2017 SUBJECTIVE: No acute changes overnight. The patient is alert, feels good, looks comfortable. [place] es pain, no fevers. WBC today 17.4, platelet 475, neutrophils 77.5, BUN 9, creatinine 0.49. MICROBIOLOGY: Blood culture growing Pseudomonas aeruginosa, multi-drug resistant, susceptible to am inoglycosides Zosyn, Fortaz. ALLERGIES: PENICILLIN. ANTIMICROBIALS: The patient was started on tobramycin, status post meropenem. DIAGNOSTICS: Thyroid ultrasound revealed nonspecific small subcentimeter hyperechoic nodules in the bilateral lobes with mild heterogenous echotexture of thyroid gland with vascularity being normal. Chest x-ray revealed mild right bibasilar atelectasis. PHYSICAL EXAMINATION: GENERAL: This is a well-nourished, well-developed, middle-aged woman who is alert, in no d istress. HEENT: Head atraumatic, normocephalic. Sclerae anicteric. Buccal mucosa pink. NECK: Supple. CHEST: Rise symmetrical. Breath sounds clear. HEART: S1, S2. ABDOMEN: Soft, bowel tones present. EXTREMITIES: Without cyanosis or edema. ASSESSMENT: 1. Sepsis with fever, some leukocytosis on admission. 2. Pseudomonas aeruginosa bacteremia, etiology unclear. 3. Status post thyroid storm. PLAN: The patient remains stable. We will continue her on tobramycin. Repeat chest x-ray in the a .m. Follow endocrinology recommendations and repeat blood culture in a.m. Dictated By: ARELI JANE CARPET SEWING MACHINE OPERATOR ольга ANDERSEN/NAE Conf#: [id number] DID#: [id number]
[2017-10-12] MEDS: SOD CHLORIDE 0.9% 1,000 ML IV SCH (14:40)
[2017-10-13] VITALS (12 sets, daily range): BP systolic 110–134; BP diastolic 52–77; PULSE 67–128; RESP 18–20
[2017-10-13] MEDS: SOD CHLORIDE 0.9% 1,000 ML IV SCH ×3 (00:40→20:58)
[2017-10-13 08:40] LABS: BASOPHILS % 0.3 % (0.0-2.0); EOSINOPHILS % 0.3 % (0.0-7.0); HEMATOCRIT 37.7 % (37.0-47.0); HEMOGLOBIN 12.6 g/dl (12.0-16.0); LYMPHOCYTES # 4.2 10^3/ul (0.8-2.9); LYMPHOCYTES % 35.3 % (15.0-51.0); MEAN CORPUSCULAR HEMOGLOBIN 28.9 pg (29.0-33.0); MEAN CORPUSCULAR HGB CONC 33.4 g/dl (32.0-37.0); MEAN CORPUSCULAR VOLUME 86.5 fl (82.0-101.0); MEAN PLATELET VOLUME 9.4 fl (7.4-10.4); MONOCYTE # 0.7 10^3/ul (0.3-0.9); MONOCYTES % 6.1 % (0.0-11.0); NEUTROPHIL # 6.7 10^3/ul (1.6-7.5); NUCLEATED RED BLOOD CELLS% 0.2 /100WBC (0.0-0.0); PLATELET COUNT 438 10^3/UL (140-415); RED BLOOD COUNT 4.36 10^6/ul (4.20-5.40); RED CELL DISTRIBUTION WIDTH 12.6 % (11.5-14.5); WHITE BLOOD COUNT 11.8 10^3/ul (4.8-10.8)
[2017-10-13 09:03] LABS: ALBUMIN 3.7 g/dl (3.3-4.9); CALCIUM 9.1 mg/dl (8.4-10.2); CREATININE 0.63 mg/dl (0.44-1.00); MAGNESIUM 2.5 mg/dl (1.7-2.5); PHOSPHORUS 4.3 mg/dl (2.5-4.9); POTASSIUM 4.2 mmol/L (3.5-5.1)
[2017-10-13] MEDS: FAMOTIDINE 20 MG TAB PO SCH ×2 (10:02→20:58)
[2017-10-13] MEDS: METHIMAZOLE 5 MG TAB PO SCH (10:02)
--- NOTE | 2017-10-13 10:09 | RADRPT ---
PROCEDURE: XR portable chest CLINICAL INDICATION: Pneumonia TECHNIQUE: Portable semi upright chest radiograph COMPARISON: Portable semi upright chest radiograph 10/10/2017 FINDINGS: The right hemidiaphragm is not abnormally elevated on the current chest radiograph. Improved aeratio n in the right lower lobe. Lung volumes are slightly low bilaterally. No significant change in borde rline enlargement of the cardiac silhouette. No other significant interval changes seen. IMPRESSION: 1. Right lower lobe improved aeration. Lung volumes are slightly low bilaterally. A PA and lateral chest radiograph would be useful for further analysis. RPTAT: TT Physician Abhilash Date Time Electronically viewed and signed by Shilpa Avelar Physician on 10/13/2017 10:08 JS/
--- NOTE | 2017-10-13 11:15 | PN ---
Date/Time of Note Date/Time of Note DATE: 10/13/17 TIME: 11:15 Assessment/Plan VTE Prophylaxis VTE Prophylaxis Intervention: ambulation Lines/Catheters IV [facility] Urinary Cath still in place: No Assessment/Plan Chief Complaint/Hosp Course 1. Thyrotoxicosis. The patient being followed by endocrinology. The patient is scheduled for nuclear medicine thyroid uptake study. 2. Sinus tachycardia. Probably secondary to #1. Resolved. 3. Sepsis with underlying Pseudomonas aeruginosa bacteremia. Etiology unclear. On antimicrobials as per infectious diseases. 4. Leukocytosis. Improving. 5. Fluids, electrolytes, and nutrition. Regular diet. 6. DVT prophylaxis. Ambulation. 7. Gastrointestinal prophylaxis. On histamine 2 receptor santosh since patient was getting high-dose steroids. 8. Plan. Await thyroid uptake scan. Await further recommendations from consultants. Case discussed with Dr. Galdamez. Problems: Subjective 24 Hr Interval Summary Free Text/Dictation Denies any complaints. Awaiting NM study. Exam/Review of Systems Vital Signs Vitals Vital Signs Date Time Temp Pulse Resp B/P Pulse Ox O2 Delivery O2 Flow Rate FiO2 10/13/17 08:12 76 10/13/17 07:31 98.3 19 114/55 97 10/10/17 11:09 Room Air 10/10/17 02:41 2.0 Intake and Output 10/12/17 10/12/17 10/13/17 15:00 23:00 07:00 Intake Total 100 ml 1680 ml 450 ml Balance 100 ml 1680 ml 450 ml Exam General: Adequately build 37 year-old female lying in bed in no apparent distress. HEENT: Normocephalic, atraumatic. Eyes: Anicteric sclerae, conjunctivae clear. ENT: Nasal septum midline, oral mucosa moist. Neck supple, no JVD noticed. Respiratory: Bilaterally clear breath sounds. No use of accessory muscles of respiration. No adventitious breath sounds. Cardiovascular: S1, S2 heard. No murmurs or gallops. Abdomen: Soft, nontender, and nondistended. Bowel sounds positive in all 4 quadrants. Genitourinary: Deferred. Extremities: No cyanosis, no clubbing, no edema. Peripheral pulses palpable. Neurologic: Cranial nerves II through XII grossly intact. The patient is awake, alert, and oriented. Skin: Normal skin turgor. No skin rashes. Results Result Diagram: 10/13/17 0804 10/13/17 0804 Results 24 hrs Laboratory Tests Test 10/12/17 22:55 10/13/17 08:04 Random Tobramycin Level 0.9 White Blood Count 11.8 #H Red Blood Count 4.36 Hemoglobin 12.6 Hematocrit 37.7 Mean Corpuscular Volume 86.5 Mean Corpuscular Hemoglobin 28.9 L Mean Corpuscular Hemoglobin Concent 33.4 Red Cell Distribution Width 12.6 Platelet Count 438 H Mean Platelet Volume 9.4 Neutrophils % 57.0 Lymphocytes % 35.3 Monocytes % 6.1 Eosinophils % 0.3 Basophils % 0.3 Nucleated Red Blood Cells % 0.2 H Neutrophils # 6.7 Lymphocytes # 4.2 H Monocytes # 0.7 Eosinophils # 0.0 Basophils # 0.0 Nucleated Red Blood Cells # 0.0 Sodium Level 144 Potassium Level 4.2 Chloride Level 106 Carbon Dioxide Level 31 Anion Gap 11 Blood Urea Nitrogen 16 Creatinine 0.63 Glucose Level 103 # Calcium Level 9.1 Phosphorus Level 4.3 Magnesium Level 2.5 Albumin 3.7 Medications Medications Current Medications Potassium Iodide 5 drop 5 drop Q8 PO Last administered on 10/12/17 05:38; Admin Dose 5 DROP; Start 10/10/17 at 04:30; Status Future Hold Sodium Chloride (NS) 1,000 ml @ 100 mls/hr Q10H IV Last administered on 23:34; Admin Dose 100 MLS/HR; Start 10/10/17 at 02:40 Ondansetron HCl (Zofran Inj) 4 mg Q6H PRN IV NAUSEA AND/OR VOMITING; Start at 03:00 Acetaminophen (Tylenol Liquid) 650 mg Q6H PRN PO PAIN LEVEL 1-3 OR FEVER; Start 10/10/17 at 03:00 Morphine Sulfate (morphine) 2 mg Q4H PRN IV PAIN LEVEL 7-10; Start 10/10/17 at 03:00 Tobramycin (Tobramycin Iv Per Pharmacy) TOBRAMYCIN PER PHARMACY NOTE XX ; Start 10/12/17 at 10:30 Famotidine 20 mg 20 mg BID PO Last administered on 10/13/17 10:02; Admin Dose 20 MG; Start 10/12/17 at 10:30 Tobramycin/ Dextrose (Tobramycin/D5W) 111 ml @ 111 mls/hr Q24H IVPB Last administered on 10/12/17t 12:41; Admin Dose 111 MLS/HR; Start 10/12/17 at 12: 00 ADEEL POWER NP Oct 13, 2017 11:15
[2017-10-13] MEDS: TOBRAMYCIN IVPB SCH (13:09)
[2017-10-13] MEDS: DEXTROSE 5% IVPB SCH (13:09)
--- NOTE | 2017-10-13 14:23 | CONS ---
Date/Time of Note Date/Time of Note DATE: 10/13/17 TIME: 14:20 Consult Date/Type/Reason Admit Date/Time Oct 10, 2017 at 09:08 Initial Consult Date 10/10/17 Type of Consultation: ID Ordering Provider: CRISTEL HILL MD Objective Vital Signs Date Time Temp Pulse Resp B/P Pulse Ox O2 Delivery O2 Flow Rate FiO2 10/13/17 12:15 91 10/13/17 11:57 98.1 19 130/73 97 10/10/17 11:09 Room Air 10/10/17 02:41 2.0 Intake and Output 10/12/17 10/12/17 10/13/17 14:59 22:59 06:59 Intake Total 100 ml 1680 ml 450 ml Balance 100 ml 1680 ml 450 ml Results/Medications Result Diagram: 10/13/17 0804 10/13/17 0804 Results 24 hrs Laboratory Tests Test 10/12/17 22:55 10/13/17 08:04 Random Tobramycin Level 0.9 White Blood Count 11.8 #H Red Blood Count 4.36 Hemoglobin 12.6 Hematocrit 37.7 Mean Corpuscular Volume 86.5 Mean Corpuscular Hemoglobin 28.9 L Mean Corpuscular Hemoglobin Concent 33.4 Red Cell Distribution Width 12.6 Platelet Count 438 H Mean Platelet Volume 9.4 Neutrophils % 57.0 Lymphocytes % 35.3 Monocytes % 6.1 Eosinophils % 0.3 Basophils % 0.3 Nucleated Red Blood Cells % 0.2 H Neutrophils # 6.7 Lymphocytes # 4.2 H Monocytes # 0.7 Eosinophils # 0.0 Basophils # 0.0 Nucleated Red Blood Cells # 0.0 Sodium Level 144 Potassium Level 4.2 Chloride Level 106 Carbon Dioxide Level 31 Anion Gap 11 Blood Urea Nitrogen 16 Creatinine 0.63 Glucose Level 103 # Calcium Level 9.1 Phosphorus Level 4.3 Magnesium Level 2.5 Albumin 3.7 Medications Current Medications Potassium Iodide 5 drop 5 drop Q8 PO Last administered on 10/12/17 05:38; Admin Dose 5 DROP; Start 10/10/17 at 04:30; Status Future Hold Sodium Chloride (NS) 1,000 ml @ 100 mls/hr Q10H IV Last administered on 12:15; Admin Dose 100 MLS/HR; Start 10/10/17 at 02:40 Ondansetron HCl (Zofran Inj) 4 mg Q6H PRN IV NAUSEA AND/OR VOMITING; Start at 03:00 Acetaminophen (Tylenol Liquid) 650 mg Q6H PRN PO PAIN LEVEL 1-3 OR FEVER; Start 10/10/17 at 03:00 Morphine Sulfate (morphine) 2 mg Q4H PRN IV PAIN LEVEL 7-10; Start 10/10/17 at 03:00 Tobramycin (Tobramycin Iv Per Pharmacy) TOBRAMYCIN PER PHARMACY NOTE XX ; Start 10/12/17 at 10:30 Famotidine 20 mg 20 mg BID PO Last administered on 10/13/17 10:02; Admin Dose 20 MG; Start 10/12/17 at 10:30 Tobramycin/ Dextrose (Tobramycin/D5W) 111 ml @ 111 mls/hr Q24H IVPB Last administered on 10/13/17 13:09; Admin Dose 111 MLS/HR; Start 10/12/17 at 12: 00 Miscellaneous Information (*Rx Drug Level Order Reminder*) TOBRA TROUGH @ 1, 100 ON ... ONCE ONCE XX ; Start 10/14/17 at 11:00; Stop 10/14/17 at 11:01 Assessment/Plan Chief Complaint/Hosp Course SUBJECTIVE: No acute changes overnight. The patient is alert, feels good, looks comfortable. Denies pain, no fevers. MICROBIOLOGY: Blood culture growing Pseudomonas aeruginosa, multi-drug resistant, susceptible to aminoglycosides Zosyn, Fortaz. ALLERGIES: PENICILLIN. ANTIMICROBIALS: Tobramycin DIAGNOSTICS: Thyroid ultrasound revealed nonspecific small subcentimeter hyperechoic nodules in the bilateral lobes with mild heterogenous echotexture of thyroid gland with vascularity being normal. Chest x-ray revealed mild right bibasilar atelectasis. PHYSICAL EXAMINATION: GENERAL: This is a well-nourished, well-developed, middle-aged woman who is alert, in no distress. HEENT: Head atraumatic, normocephalic. Sclerae anicteric. Buccal mucosa pink. NECK: Supple. CHEST: Rise symmetrical. Breath sounds clear. HEART: S1, S2. ABDOMEN: Soft, bowel tones present. EXTREMITIES: Without cyanosis or edema. ASSESSMENT: 1. Sepsis with fever, some leukocytosis on admission. 2. Pseudomonas aeruginosa bacteremia likely pulmonary source. 3. Status post thyroid storm. 4. RLL PNA PLAN: The patient remains stable. WBC decreasing, repeat bld cx negative, cxr improving, continue abx. Follow endocrinology recommendations. Consider PICC placement for IV abx post dc DW staff Problems: ARELI JANE NP Oct 13, 2017 14:23
[2017-10-14] VITALS (25 sets, daily range): BP systolic 89–136; BP diastolic 41–82; PULSE 74–142; RESP 12–26
[2017-10-14] MEDS: SOD CHLORIDE 0.9% 1,000 ML IV SCH ×2 (07:10→16:40)
[2017-10-14 07:27] LABS: BASOPHILS % 0.3 % (0.0-2.0); EOSINOPHILS # 0.1 10^3/ul (0.0-0.5); EOSINOPHILS % 0.7 % (0.0-7.0); HEMATOCRIT 39.7 % (37.0-47.0); HEMOGLOBIN 13.5 g/dl (12.0-16.0); LYMPHOCYTES # 3.8 10^3/ul (0.8-2.9); LYMPHOCYTES % 30.8 % (15.0-51.0); MEAN CORPUSCULAR VOLUME 85.4 fl (82.0-101.0); MEAN PLATELET VOLUME 9.3 fl (7.4-10.4); MONOCYTE # 0.8 10^3/ul (0.3-0.9); MONOCYTES % 6.1 % (0.0-11.0); NEUTROPHIL # 7.6 10^3/ul (1.6-7.5); NEUTROPHILS % 61.2 % (39.0-77.0); NUCLEATED RED BLOOD CELLS% 0.2 /100WBC (0.0-0.0); PLATELET COUNT 469 10^3/UL (140-415); RED BLOOD COUNT 4.65 10^6/ul (4.20-5.40); RED CELL DISTRIBUTION WIDTH 12.5 % (11.5-14.5); WHITE BLOOD COUNT 12.4 10^3/ul (4.8-10.8)
[2017-10-14 07:55] LABS: CALCIUM 9.1 mg/dl (8.4-10.2); CREATININE 0.6 mg/dl (0.44-1.00)
[2017-10-14 07:59] LABS: MAGNESIUM 2.5 mg/dl (1.7-2.5); PHOSPHORUS 4.2 mg/dl (2.5-4.9)
[2017-10-14] MEDS: FAMOTIDINE 20 MG TAB PO SCH ×2 (10:22→20:32)
[2017-10-14] MEDS: METHIMAZOLE 5 MG TAB PO SCH (10:22)
[2017-10-14] MEDS ORDERED: LIDOCAINE 1% (MPF) 5 ML VIAL SC ONE (12:00)
--- NOTE | 2017-10-14 13:59 | CONS ---
Date/Time of Note Date/Time of Note DATE: 10/14/17 TIME: 13:58 Consult Date/Type/Reason Admit Date/Time Oct 10, 2017 at 09:08 Initial Consult Date 10/10/17 Type of Consultation: ID Ordering Provider: CRISTEL HILL MD Objective Vital Signs Date Time Temp Pulse Resp B/P Pulse Ox O2 Delivery O2 Flow Rate FiO2 10/14/17 12:33 88 10/14/17 12:01 98.1 19 125/70 97 10/10/17 11:09 Room Air Intake and Output 10/13/17 10/13/17 10/14/17 15:00 23:00 07:00 Intake Total 1211 ml 300 ml Balance 1211 ml 300 ml Results/Medications Result Diagram: 10/14/1770110/14/17701 Results 24 hrs Laboratory Tests Test 10/14/17 07:02 10/14/17 10:56 White Blood Count 12.4 H Red Blood Count 4.65 Hemoglobin 13.5 Hematocrit 39.7 Mean Corpuscular Volume 85.4 Mean Corpuscular Hemoglobin 29.0 Mean Corpuscular Hemoglobin Concent 34.0 Red Cell Distribution Width 12.5 Platelet Count 469 H Mean Platelet Volume 9.3 Neutrophils % 61.2 Lymphocytes % 30.8 Monocytes % 6.1 Eosinophils % 0.7 Basophils % 0.3 Nucleated Red Blood Cells % 0.2 H Neutrophils # 7.6 H Lymphocytes # 3.8 H Monocytes # 0.8 Eosinophils # 0.1 Basophils # 0.0 Nucleated Red Blood Cells # 0.0 Sodium Level 143 Potassium Level 4.0 Chloride Level 106 Carbon Dioxide Level 27 Anion Gap 14 Blood Urea Nitrogen 14 Creatinine 0.60 Glucose Level 117 Calcium Level 9.1 Phosphorus Level 4.2 Magnesium Level 2.5 Tobramycin Level Trough < 0.6 L Medications Current Medications Potassium Iodide 5 drop 5 drop Q8 PO Last administered on 10/12/17 05:38; Admin Dose 5 DROP; Start 10/10/17 at 04:30; Status Future Hold Sodium Chloride (NS) 1,000 ml @ 100 mls/hr Q10H IV Last administered on 07:10; Admin Dose 100 MLS/HR; Start 10/10/17 at 02:40 Ondansetron HCl (Zofran Inj) 4 mg Q6H PRN IV NAUSEA AND/OR VOMITING; Start at 03:00 Acetaminophen (Tylenol Liquid) 650 mg Q6H PRN PO PAIN LEVEL 1-3 OR FEVER; Start 10/10/17 at 03:00 Morphine Sulfate (morphine) 2 mg Q4H PRN IV PAIN LEVEL 7-10; Start 10/10/17 at 03:00 Tobramycin (Tobramycin Iv Per Pharmacy) TOBRAMYCIN PER PHARMACY NOTE XX ; Start 10/12/17 at 10:30 Famotidine 20 mg 20 mg BID PO Last administered on 10/14/17 10:22; Admin Dose 20 MG; Start 10/12/17 at 10:30 Tobramycin/ Dextrose (Tobramycin/D5W) 111 ml @ 111 mls/hr Q24H IVPB Last administered on 10/13/17 13:09; Admin Dose 111 MLS/HR; Start 10/12/17 at 12: 00 Assessment/Plan Chief Complaint/Hosp Course SUBJECTIVE: No acute changes overnight. Alert, feels good, looks comfortable. Denies pain, no fevers/n/v/d. MICROBIOLOGY: Blood culture growing Pseudomonas aeruginosa, multi-drug resistant, susceptible to aminoglycosides, Zosyn, Fortaz. ALLERGIES: PENICILLIN. ANTIMICROBIALS: Tobramycin DIAGNOSTICS: Thyroid ultrasound revealed nonspecific small subcentimeter hyperechoic nodules in the bilateral lobes with mild heterogenous echotexture of thyroid gland with vascularity being normal. Chest x-ray revealed mild right bibasilar atelectasis. PHYSICAL EXAMINATION: GENERAL: This is a well-nourished, well-developed, middle-aged woman who is alert, in no distress. HEENT: Head atraumatic, normocephalic. Sclerae anicteric. Buccal mucosa pink. NECK: Supple. CHEST: Rise symmetrical. Breath sounds clear. HEART: S1, S2. ABDOMEN: Soft, bowel tones present. EXTREMITIES: Without cyanosis or edema. ASSESSMENT: 1. S/p sepsis 2. Pseudomonas aeruginosa bacteremia likely pulmonary source. 3. Status post thyroid storm. 4. RLL PNA PLAN: The patient remains stable. Repeat bld cx negative, continue abx, endocrinology recommendations.PICC placement for completion of 2 weeks IV abx DW staff/patient Problems: ARELI JANE NP Oct 14, 2017 13:59
--- NOTE | 2017-10-14 15:17 | RADRPT ---
PROCEDURE: XR Chest. CLINICAL INDICATION: PICC line placement TECHNIQUE: Single frontal view of the chest was obtained COMPARISON: Yesterday FINDINGS: There is a new right-sided PICC line in place with its tip overlying the mid right atrium. There is resolution of the mild right lower lobe infiltrate. The heart is normal in size. The lungs are clear. RPTAT: AA IMPRESSION: New PICC line with its tip overlying the mid right atrium. .Yousuf Escobar MD, MD Date Time Electronically viewed and signed by .Yousuf Escobar MD, MD on 10/14/2017 15:16 .S/
--- NOTE | 2017-10-14 15:28 | CONS ---
Date/Time of Note Date/Time of Note DATE: 10/14/17 TIME: 15:27 Assessment/Plan Assessment/Plan Chief Complaint/Hosp Course 37-year-old female who was admitted with thyrotoxicosis. Please note she was labeled as having thyroid storm but did not have fever tachycardia [id number]. As I obtained the history from the patient she had been checked for thyroid disorder roughly 2-3 years ago but and been told everything was okay. Please note this differs from what the emergency room physician and the admission H&P state. In the last 2 weeks as I understood the history she developed tenderness in the area of the neck with fevers by tactile sensation but not measured. She developed multiple symptoms of thyrotoxicosis over the last 2 weeks and presented to the emergency room. In our emergency room she was obviously hyperthyroid Problems: (1) Thyroid crisis or storm Status: Acute Comment: Is not easily discern based on circumstances whether this was acute thyroiditis with thyrotoxicosis which is rare or simply hyperthyroidism. We can do the nuclear medicine thyroid uptake and scan because of her having been given SSKI. Please note she was not in storm. In addition with a thyroid ultrasound does not, significantly about the blood flow. She will be treated as a long-term hyperthyroidism and followed up closely as an outpatient. I would need to see her in 3 weeks in my office. Qualifiers: Thyrotoxicosis type: unspecified thyrotoxicosis type Qualified Code: E05.91 - Thyrotoxicosis with thyrotoxic crisis, unspecified thyrotoxicosis type (2) Bacteremia due to Pseudomonas Status: Acute Comment: He remains somewhat mysterious where to this bacteremia come from. There is no evidence to suggest this represents a thyroid abscess. Infectious diseases guiding care. Consultation Date/Type/Reason Admit Date/Time Oct 10, 2017 at 09:08 Initial Consult Date 10/10/17 Type of Consultation: Endocrinology Reason for Consultation Thyrotoxicosis Referring Provider: CRISTEL HILL MD 24 HR Interval Summary Constitutional: no complaints Exam/Review of Systems Vital Signs Vitals Vital Signs Date Time Temp Pulse Resp B/P Pulse Ox O2 Delivery O2 Flow Rate FiO2 10/14/17 12:33 88 10/14/17 12:01 98.1 19 125/70 97 10/10/17 11:09 Room Air Intake and Output 10/13/17 10/13/17 10/14/17 15:00 23:00 07:00 Intake Total 1211 ml 300 ml Balance 1211 ml 300 ml Results No changes Result Diagram: 10/14/1770110/14/17 07 Results 24 hrs Laboratory Tests Test 10/14/17 07:02 10/14/17 10:56 White Blood Count 12.4 H Red Blood Count 4.65 Hemoglobin 13.5 Hematocrit 39.7 Mean Corpuscular Volume 85.4 Mean Corpuscular Hemoglobin 29.0 Mean Corpuscular Hemoglobin Concent 34.0 Red Cell Distribution Width 12.5 Platelet Count 469 H Mean Platelet Volume 9.3 Neutrophils % 61.2 Lymphocytes % 30.8 Monocytes % 6.1 Eosinophils % 0.7 Basophils % 0.3 Nucleated Red Blood Cells % 0.2 H Neutrophils # 7.6 H Lymphocytes # 3.8 H Monocytes # 0.8 Eosinophils # 0.1 Basophils # 0.0 Nucleated Red Blood Cells # 0.0 Sodium Level 143 Potassium Level 4.0 Chloride Level 106 Carbon Dioxide Level 27 Anion Gap 14 Blood Urea Nitrogen 14 Creatinine 0.60 Glucose Level 117 Calcium Level 9.1 Phosphorus Level 4.2 Magnesium Level 2.5 Tobramycin Level Trough < 0.6 L Medications Medications Current Medications Potassium Iodide 5 drop 5 drop Q8 PO Last administered on 10/12/17 05:38; Admin Dose 5 DROP; Start 10/10/17 at 04:30; Status Future Hold Sodium Chloride (NS) 1,000 ml @ 100 mls/hr Q10H IV Last administered on 07:10; Admin Dose 100 MLS/HR; Start 10/10/17 at 02:40 Ondansetron HCl (Zofran Inj) 4 mg Q6H PRN IV NAUSEA AND/OR VOMITING; Start at 03:00 Acetaminophen (Tylenol Liquid) 650 mg Q6H PRN PO PAIN LEVEL 1-3 OR FEVER; Start 10/10/17 at 03:00 Morphine Sulfate (morphine) 2 mg Q4H PRN IV PAIN LEVEL 7-10; Start 10/10/17 at 03:00 Tobramycin (Tobramycin Iv Per Pharmacy) TOBRAMYCIN PER PHARMACY NOTE XX ; Start 10/12/17 at 10:30 Famotidine 20 mg 20 mg BID PO Last administered on 10/14/17 10:22; Admin Dose 20 MG; Start 10/12/17 at 10:30 Tobramycin/ Dextrose (Tobramycin/D5W) 111 ml @ 111 mls/hr Q24H IVPB Last administered on 10/13/17t 13:09; Admin Dose 111 MLS/HR; Start 10/12/17 at 12: 00 ANNIE BRISCOE MD Oct 14, 2017 15:28
--- NOTE | 2017-10-14 15:29 | RADRPT ---
PROCEDURE: US guidance for PICC line CLINICAL INDICATION: PICC line placement TECHNIQUE: Multiple real-time images were acquired of the patient's arm utilizing a high resolutio n transducer. This was performed by the PICC line nurse for venous access. COMPARISON: None FINDINGS: Ultrasound guidance for PICC line placement. IMPRESSION: Ultrasound guidance for PICC line placement. RPTAT: AA .Yousuf Escobar MD, MD Date Time Electronically viewed and signed by .Yousuf Escobar MD, on 10/14/2017 15:29 .S/
[2017-10-14] MEDS: TOBRAMYCIN IVPB SCH (17:06)
[2017-10-14] MEDS: DEXTROSE 5% IVPB SCH (17:06)
--- NOTE | 2017-10-14 17:31 | PN ---
Date/Time of Note Date/Time of Note DATE: 10/14/17 TIME: 17:23 Assessment/Plan VTE Prophylaxis VTE Prophylaxis Intervention: SCD's Lines/Catheters IV Catheter Type (from Nrsg): PICC Line Central line still needed: Yes Urinary Cath still in place: No Assessment/Plan Assessment/Plan 1. Thyrotoxicosis - Endocrinology on board and appreciate recommendations - Will not be able to do the Nuclear medicine thyroid uptake study due to being given the SSKI - Started on methimazole - Will need to follow up with Dr. Abad in 3 weeks 2. Sinus tachycardia Probably secondary to #1 - Resolved. 3. Sepsis with underlying Pseudomonas aeruginosa bacteremia. Etiology unclear. - ID on board and recommendations appreciated - PICC line placed this am for retirement IV antibiotics - Having discomfort at site of insertion and will check US LUE 4. Leukocytosis - stable 5. Disposition - Will need IV antibiotics for 2 weeks - CM consult placed for HH for IV antibiotic Subjective 24 Hr Interval Summary Free Text/Dictation Patient was doing well this am and agreed to PICC line placement. After placement of line, was complaining of warmth and pain at site while Tobramycin running. No acute overnight events. Exam/Review of Systems Vital Signs Vitals Vital Signs Date Time Temp Pulse Resp B/P Pulse Ox O2 Delivery O2 Flow Rate FiO2 10/14/17 16:28 101 10/14/17 12:01 98.1 19 125/70 97 10/10/17 11:09 Room Air Intake and Output 10/13/17 10/13/17 10/14/17 15:00 23:00 07:00 Intake Total 1211 ml 300 ml Balance 1211 ml 300 ml Exam General: in no apparent distress. Neck supple, no JVD noticed. Respiratory: Bilaterally clear breath sounds. No use of accessory muscles of respiration. No adventitious breath sounds. Cardiovascular: S1, S2 heard. No murmurs or gallops. Abdomen: Soft, nontender, and nondistended. Bowel sounds positive in all 4 quadrants. Extremities: No cyanosis, no clubbing, no edema. Peripheral pulses palpable. Neurologic: Cranial nerves II through XII grossly intact. The patient is awake, alert, and oriented. Skin: Normal skin turgor. No skin rashes. Results Result Diagram: 10/14/17 0702 10/14/17 07 Results 24 hrs Laboratory Tests Test 10/14/17 07:02 10/14/17 10:56 White Blood Count 12.4 H Red Blood Count 4.65 Hemoglobin 13.5 Hematocrit 39.7 Mean Corpuscular Volume 85.4 Mean Corpuscular Hemoglobin 29.0 Mean Corpuscular Hemoglobin Concent 34.0 Red Cell Distribution Width 12.5 Platelet Count 469 H Mean Platelet Volume 9.3 Neutrophils % 61.2 Lymphocytes % 30.8 Monocytes % 6.1 Eosinophils % 0.7 Basophils % 0.3 Nucleated Red Blood Cells % 0.2 H Neutrophils # 7.6 H Lymphocytes # 3.8 H Monocytes # 0.8 Eosinophils # 0.1 Basophils # 0.0 Nucleated Red Blood Cells # 0.0 Sodium Level 143 Potassium Level 4.0 Chloride Level 106 Carbon Dioxide Level 27 Anion Gap 14 Blood Urea Nitrogen 14 Creatinine 0.60 Glucose Level 117 Calcium Level 9.1 Phosphorus Level 4.2 Magnesium Level 2.5 Tobramycin Level Trough < 0.6 L Medications Medications Current Medications Potassium Iodide 5 drop 5 drop Q8 PO Last administered on 10/12/17 05:38; Admin Dose 5 DROP; Start 10/10/17 at 04:30; Status Future Hold Sodium Chloride (NS) 1,000 ml @ 100 mls/hr Q10H IV Last administered on 07:10; Admin Dose 100 MLS/HR; Start 10/10/17 at 02:40 Ondansetron HCl (Zofran Inj) 4 mg Q6H PRN IV NAUSEA AND/OR VOMITING; Start at 03:00 Acetaminophen (Tylenol Liquid) 650 mg Q6H PRN PO PAIN LEVEL 1-3 OR FEVER; Start 10/10/17 at 03:00 Morphine Sulfate (morphine) 2 mg Q4H PRN IV PAIN LEVEL 7-10; Start 10/10/17 at 03:00 Tobramycin (Tobramycin Iv Per Pharmacy) TOBRAMYCIN PER PHARMACY NOTE XX ; Start 10/12/17 at 10:30 Famotidine 20 mg 20 mg BID PO Last administered on 10/14/17 10:22; Admin Dose 20 MG; Start 10/12/17 at 10:30 Tobramycin/ Dextrose (Tobramycin/D5W) 111 ml @ 111 mls/hr Q24H IVPB Last administered on 10/14/17 17:06; Admin Dose 111 MLS/HR; Start 10/12/17 at 12: 00 IV Flush (NS 10 ml) 10 ml PRN PRN IV IV PROTOCOL; Start 10/14/17 at 16:00 CRISTEL HILL MD Oct 14, 2017 17:31
[2017-10-14 18:44] LABS: BASOPHILS % 0.2 % (0.0-2.0); EOSINOPHILS # 0.1 10^3/ul (0.0-0.5); EOSINOPHILS % 0.9 % (0.0-7.0); HEMATOCRIT 42.4 % (37.0-47.0); HEMOGLOBIN 14.4 g/dl (12.0-16.0); LYMPHOCYTES # 3.5 10^3/ul (0.8-2.9); LYMPHOCYTES % 26.4 % (15.0-51.0); MEAN CORPUSCULAR HEMOGLOBIN 28.6 pg (29.0-33.0); MEAN CORPUSCULAR VOLUME 84.3 fl (82.0-101.0); MONOCYTE # 0.8 10^3/ul (0.3-0.9); MONOCYTES % 6.1 % (0.0-11.0); NEUTROPHIL # 8.7 10^3/ul (1.6-7.5); NEUTROPHILS % 65.8 % (39.0-77.0); PLATELET COUNT 524 10^3/UL (140-415); RED BLOOD COUNT 5.03 10^6/ul (4.20-5.40); RED CELL DISTRIBUTION WIDTH 12.2 % (11.5-14.5); WHITE BLOOD COUNT 13.3 10^3/ul (4.8-10.8)
[2017-10-14] MEDS ORDERED: SOD CHLORIDE 0.9% 100 ML ONE (18:55)
--- NOTE | 2017-10-14 18:57 | RADRPT ---
PROCEDURE: CT Brain without contrast. CLINICAL INDICATION: Code stroke, nonresponsive TECHNIQUE: A CT of the brain was performed utilizing axial imaging from the skull base through the vertex without IV contrast. Multiplanar reformatted images were made. Images were reviewed on a [employer] workstation. The CTDIvol is 43.48 mGy and the DLP is 720.23 mGycm. One or more the following dose reduction techniques were utilized: Automated exposure control, adjus tment of the mA and / or kV according to patient's size, or use of iterative reconstruction techniqu e. DICOM images are available. COMPARISON: None FINDINGS: Beam-hardening artifact at the base of the brain. There is no intracranial hemorrhage, mass effect, or midline shift. No extra-axial fluid collection is seen. The ventricles and sulci are normal in s ize and configuration. The density of the brain is normal, and the estrella white matter differentiation appears well-preserved. The visualized paranasal sinuses and osseous structures are grossly unrema rkable. IMPRESSION: No acute bleed. No acute major territory infarct seen. Critical result discussed with Mary Herrera RN at 06:55 p.m. on 10/14/2017. RPTAT: HJES .Jb Caro MD, MD Date Time Electronically viewed and signed by .Jb Caro MD, on 10/14/2017 18:56 .S/
[2017-10-14] MEDS ORDERED: LEVETIRACETAM 1000 MG (PMX) 100 ML IVPB ONE (19:00)
[2017-10-14 19:18] LABS: ALBUMIN 4.3 g/dl (3.3-4.9); ALBUMIN/GLOBULIN RATIO 1.22; BILIRUBIN,INDIRECT 0.2 mg/dl (0-1.1); BILIRUBIN,TOTAL 0.2 mg/dl (0.2-1.3); CALCIUM 9.1 mg/dl (8.4-10.2); CREATININE 0.61 mg/dl (0.44-1.00); MAGNESIUM 2.4 mg/dl (1.7-2.5); TOTAL PROTEIN 7.8 g/dl (6.1-8.1)
--- NOTE | 2017-10-14 19:30 | RADRPT ---
PROCEDURE: US left upper extremity veins. CLINICAL INDICATION: Left arm pain and swelling. TECHNIQUE: Multiple longitudinal and transverse images of the left upper extremity venous tree was obtained with estrella scale, pulsed Doppler, and color Doppler imaging. COMPARISON: None available FINDINGS: The left internal jugular, subclavian, axillary, brachial, basilic, cephalic, radial, and ulnar vein s are patent. There is normal flow with augmentation and compressibility throughout. There is no th rombus or occlusion. IMPRESSION: 1. Normal venous system of the left upper extremity. No evidence of thrombus or occlusion. RPTAT: QQ .Dannie Cabrera MD, MD Date Time Electronically viewed and signed by .Dannie Cabrera MD, MD on 10/14/2017 19:30 .R/
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
[2017-10-14] MEDS: morphine 2 MG INJ IV PRN (21:18)
[2017-10-14] MEDS: METOPROLOL 25 MG TAB PO SCH (21:18)
--- NOTE | 2017-10-14 23:13 | RADRPT ---
PROCEDURE: MR Brain with and without contrast. CLINICAL INDICATION: Thyroid storm. Headache. TECHNIQUE: An MRI of the brain was performed on a 1.5 param scanner utilizing the following sequen jamal: Sagittal T1 weighted, axial T2 weighted, axial FLAIR, coronal GRE, and axial diffusion weighted with ADC mapping. Additionally, postcontrast axial and coronal T1-weighted sequences were performed after 10 ml Magnevist given intravenously without complication. COMPARISON: None FINDINGS: No evidence of restricted diffusion to suggest acute or early subacute ischemic infarction. No abn ormal extra-axial fluid collections are seen. No hypointense signal abnormalities are seen on the GRE images to suggest the presence of blood degr adation products. The brain parenchyma is normal in signal intensity and morphology with preservation of estrella white di fferentiation . Age appropriate size of the ventricles and subarachnoid spaces. The posterior fossa contents, brainstem, seventh - eighth cranial nerve complexes, pituitary axis, o rbits, paranasal sinuses, and mastoid air cells are unremarkable. Normal flow voids are visible in the proximal intracranial arteries and dural sinuses, indicating pa tency. The postcontrast images show no abnormal parenchymal, leptomeningeal, or dural enhancement. IMPRESSION: 1. No acute or early subacute ischemic infarction or intracranial hemorrhage. No pathologic enhance ment. 2. No evidence of hydrocephalus or structural abnormality. 3. No acute intracranial abnormality. RPTAT:AAJJ Physician Patti Date Time Electronically viewed and signed by Physician Patti on 10/14/2017 23:12 ALMA DELIA/
[2017-10-15] VITALS (28 sets, daily range): BP systolic 89–127; BP diastolic 40–71; PULSE 67–129; RESP 4–26
[2017-10-15] MEDS: SOD CHLORIDE 0.9% 1,000 ML IV SCH ×2 (01:44→05:31)
[2017-10-15 04:11] LABS: CALCIUM 8.4 mg/dl (8.4-10.2); CREATININE 0.48 mg/dl (0.44-1.00); MAGNESIUM 2.3 mg/dl (1.7-2.5); PHOSPHORUS 3.9 mg/dl (2.5-4.9); POTASSIUM 3.8 mmol/L (3.5-5.1)
[2017-10-15 04:20] LABS: BASOPHILS % 0.3 % (0.0-2.0); EOSINOPHILS # 0.1 10^3/ul (0.0-0.5); EOSINOPHILS % 0.6 % (0.0-7.0); HEMOGLOBIN 11.8 g/dl (12.0-16.0); LYMPHOCYTES # 2.9 10^3/ul (0.8-2.9); LYMPHOCYTES % 24.3 % (15.0-51.0); MEAN CORPUSCULAR HGB CONC 33.7 g/dl (32.0-37.0); MEAN PLATELET VOLUME 9.2 fl (7.4-10.4); MONOCYTE # 0.8 10^3/ul (0.3-0.9); MONOCYTES % 6.7 % (0.0-11.0); NEUTROPHIL # 7.9 10^3/ul (1.6-7.5); NEUTROPHILS % 67.3 % (39.0-77.0); PLATELET COUNT 429 10^3/UL (140-415); RED BLOOD COUNT 4.07 10^6/ul (4.20-5.40); RED CELL DISTRIBUTION WIDTH 12.2 % (11.5-14.5); WHITE BLOOD COUNT 11.7 10^3/ul (4.8-10.8)
[2017-10-15] MEDS: METHIMAZOLE 5 MG TAB PO SCH (06:51)
--- NOTE | 2017-10-15 07:15 | CONS ---
Date/Time of Note Date/Time of Note DATE: 10/15/17 TIME: 07:12 Assessment/Plan Assessment/Plan Chief Complaint/Hosp Course 37-year-old female who was admitted with thyrotoxicosis. Please note she was labeled as having thyroid storm but did not have fever tachycardia [id number]. As I obtained the history from the patient she had been checked for thyroid disorder roughly 2-3 years ago but and been told everything was okay. Please note this differs from what the emergency room physician and the admission H&P state. In the last 2 weeks as I understood the history she developed tenderness in the area of the neck with fevers by tactile sensation but not measured. She developed multiple symptoms of thyrotoxicosis over the last 2 weeks and presented to the emergency room. In our emergency room she was obviously hyperthyroid Problems: (1) Altered mental status, unspecified Status: Acute Comment: Patient developed altered mental status yesterday after placement of a PICC line. MRI scan and CT scan of the brain were unremarkable as well as a left upper extremity venous study. Reading the description from the recent rapid response team it almost reads as if the patient had had an epileptic seizure. I will defer off to the primary care team but I am actually curious about whether or not after doing something in the venous system that has led to a neurologic event that was relatively small. Specifically if this patient has an ASD or VSD or other shunt that could do this Qualifiers: Altered mental status type: unspecified Qualified Code: R41.82 - Altered mental status, unspecified altered mental status type (2) Thyroid crisis or storm Status: Acute Comment: She remains on medication and is not as symptomatic as when she was admitted. This is not thyroid storm. Repeating her labs today. Qualifiers: Thyrotoxicosis type: unspecified thyrotoxicosis type Qualified Code: E05.91 - Thyrotoxicosis with thyrotoxic crisis, unspecified thyrotoxicosis type (3) Bacteremia due to Pseudomonas Status: Acute Comment: As per infectious disease and the primary team. Consultation Date/Type/Reason Admit Date/Time Oct 10, 2017 at 09:08 Initial Consult Date 10/10/17 Type of Consultation: Endocrinology Reason for Consultation Hyperthyroidism Referring Provider: CRISTEL HILL MD 24 HR Interval Summary Free Text/Dictation Patient after placing the PICC line had any events. Please see the description below. "INSPECTOR AND HAND PACKAGER NOTES: RESPONDED TO INSPECTOR AND HAND PACKAGER CALL IN ROOM 8945 AT 1818, INSPECTOR AND HAND PACKAGER ARRIVED AT 1821, DR HILL AT BEDSIDE, RN ED TRANSPORTER AMBER, PRIMARY RN AT BEDSIDE AND 5E DUMPING MACHINE OPERATOR. PT ASSESSED BY THIS RN. NOTED RIGHT GAZE DEVIATION, PT GRINDING TEETH. PT NO RESPONSE TO PAIN, DOESN'T OPEN EYES WHEN PROMPTED, FIGHTING TO KEEP EYES CLOSED TIGHT. PT VERY WARM TO TOUCH, 99.2, CODE STROKE WAS CALLED AT 182. V/S STABLE, BP STABLE, STARTED ON 2LNC, PT EARLIER COMPLAINT OF PAIN TO PICC LINE INSERTION - NEW. PREVIOUS MIDLINE D/C'D, ALSO COMPLAINING OF PAIN AT THAT INSERTION SITE. TO CT SCAN WITH THIS RN AND TRANSPORTER. AND TO ICU. TELE NEURO MONITOR AT BEDSIDE. ORDER TO MRI THIS EVENING. LABS DRAWN AT BEDSIDE PRIOR TO TRANSPORT TO CT, INCLUDING A PROLACTIN LEVEL. REPORT TO CHRISTINE SAUCEDO. " Constitutional: no complaints (Denies fevers chills or sweats) Detailed Summary Respiratory: no complaints Cardiovascular: chest pain (Complains of chest pain for the time after they placed the PICC line) Neurologic: no complaints (And specifically denies any history of seizure disorder) Exam/Review of Systems Vital Signs Vitals Vital Signs Date Time Temp Pulse Resp B/P Pulse Ox O2 Delivery O2 Flow Rate FiO2 10/15/17 06:15 68 18 99 10/15/17 06:00 91/45 Nasal Cannula 10/15/17 05:00 98.1 10/15/17 02:05 2.0 10/14/17 21:07 27 Intake and Output 10/14/17 10/14/17 10/15/17 15:00 23:00 07:00 Intake Total 950 ml 1440 ml 700 ml Balance 950 ml 1440 ml 700 ml Exam Constitutional: alert, oriented Head: atraumatic, normocephalic Neck: non-tender, supple Respiratory: clear to auscultation, normal air movement Cardiovascular: nl pulses, regular rate and rhythm Neurological: SURGICAL GARMENT INSPECTOR II-XII intact, nl mental status, nl speech, nl strength, other (No confusion, oriented to person place and time) Results Result Diagram: 10/15/17 0325 10/15/17 0325 Results 24 hrs Laboratory Tests Test 10/14/17 10:56 10/14/17 18:19 10/14/17 18:25 10/15/17 03:25 Tobramycin Level Trough < 0.6 L Bedside Glucose 107 White Blood Count 13.3 H 11.7 H Red Blood Count 5.03 4.07 L Hemoglobin 14.4 11.8 L Hematocrit 42.4 35.0 L Mean Corpuscular Volume 84.3 86.0 Mean Corpuscular Hemoglobin 28.6 L 29.0 Mean Corpuscular Hemoglobin Concent 34.0 33.7 Red Cell Distribution Width 12.2 12.2 Platelet Count 524 H 429 H Mean Platelet Volume 9.0 9.2 Neutrophils % 65.8 67.3 Lymphocytes % 26.4 24.3 Monocytes % 6.1 6.7 Eosinophils % 0.9 0.6 Basophils % 0.2 0.3 Nucleated Red Blood Cells % 0.0 0.0 Neutrophils # 8.7 H 7.9 H Lymphocytes # 3.5 H 2.9 Monocytes # 0.8 0.8 Eosinophils # 0.1 0.1 Basophils # 0.0 0.0 Nucleated Red Blood Cells # 0.0 0.0 Sodium Level 144 142 Potassium Level 4.0 3.8 Chloride Level 106 109 Carbon Dioxide Level 24 23 Anion Gap 18 H 14 Blood Urea Nitrogen 13 10 Creatinine 0.61 0.48 Glucose Level 107 105 Calcium Level 9.1 8.4 Magnesium Level 2.4 2.3 Total Bilirubin 0.2 Direct Bilirubin 0.00 Indirect Bilirubin 0.2 Aspartate Amino Transf (AST/SGOT) 22 Alanine Aminotransferase (ALT/SGPT) 51 Alkaline Phosphatase 104 Total Protein 7.8 Albumin 4.3 Globulin 3.50 H Albumin/Globulin Ratio 1.22 Phosphorus Level 3.9 Medications Medications Current Medications Potassium Iodide 5 drop 5 drop Q8 PO Last administered on 10/12/17 05:38; Admin Dose 5 DROP; Start 10/10/17 at 04:30; Status Future Hold Sodium Chloride (NS) 1,000 ml @ 100 mls/hr Q10H IV Last administered on 05:31; Admin Dose 100 MLS/HR; Start 10/10/17 at 02:40 Ondansetron HCl (Zofran Inj) 4 mg Q6H PRN IV NAUSEA AND/OR VOMITING; Start at 03:00 Acetaminophen (Tylenol Liquid) 650 mg Q6H PRN PO PAIN LEVEL 1-3 OR FEVER; Start 10/10/17 at 03:00 Morphine Sulfate (morphine) 2 mg Q4H PRN IV PAIN LEVEL 7-10 Last administered on 10/14/17 21:18; Admin Dose 2 MG; Start 10/10/17 at 03:00 Tobramycin (Tobramycin Iv Per Pharmacy) TOBRAMYCIN PER PHARMACY NOTE XX ; Start 10/12/17 at 10:30 Famotidine 20 mg 20 mg BID PO Last administered on 10/14/17 20:32; Admin Dose 20 MG; Start 10/12/17 at 10:30 Tobramycin/ Dextrose (Tobramycin/D5W) 111 ml @ 111 mls/hr Q24H IVPB Last administered on 10/14/17 17:06; Admin Dose 111 MLS/HR; Start 10/12/17 at 12: 00 IV Flush (NS 10 ml) 10 ml PRN PRN IV IV PROTOCOL; Start 10/14/17 at 16:00 Metoprolol Tartrate (Lopressor) 25 mg DAILY PO Last administered on 10/14/17 21:18; Admin Dose 25 MG; Start 10/14/17 at 21:13 ANNIE BRISCOE MD Oct 15, 2017 07:15
[2017-10-15] MEDS: METOPROLOL 25 MG TAB PO SCH ×2 (09:07→20:22)
[2017-10-15] MEDS: FAMOTIDINE 20 MG TAB PO SCH ×2 (09:07→20:20)
--- NOTE | 2017-10-15 09:36 | PN ---
Date/Time of Note Date/Time of Note DATE: 10/15/17 TIME: 09:34 Assessment/Plan VTE Prophylaxis VTE Prophylaxis Intervention: SCD's Lines/Catheters IV Catheter Type (from [facility]): PICC Line Central line still needed: Yes Assessment/Plan Chief Complaint/Hosp Course 1. Thyrotoxicosis. The patient being followed by endocrinology. The patient is on methimazole. 2. Transient episode of encephalopathy following PICC line insertion on . Status post evaluation by telemetry psychiatry. Brain imaging negative. The patient was moved to the intensive care unit on 10/14/2017 for close monitoring. Pending 2D echocardiogram. 3. Sepsis with underlying Pseudomonas aeruginosa bacteremia. Etiology unclear. On antimicrobials as per infectious diseases. 4. Sinus tachycardia. Most probably secondary to #1. On low-dose blockers. 5. Fluids, electrolytes, and nutrition. Regular diet. 6. DVT prophylaxis. SCDs. 7. Gastrointestinal prophylaxis. On histamine 2 receptor santosh since patient was getting high-dose steroids. 8. Plan. The patient has a PICC line in place for long-term IV antibiotic management. Currently on close monitoring in the intensive care unit. May move out of the ICU to a [facility] floor. Case discussed with Dr. Lundberg. Critical care time: 35 minutes. Problems: Subjective 24 Hr Interval Summary Free Text/Dictation Complain of LUE pain. Exam/Review of Systems Vital Signs Vitals Vital Signs Date Time Temp Pulse Resp B/P Pulse Ox O2 Delivery O2 Flow Rate FiO2 10/15/17 07:00 83 15 108/67 97 10/15/17 06:30 98.0 Nasal Cannula 10/15/17 02:05 2.0 10/14/17 21:07 27 Intake and Output 10/14/17 10/14/17 10/15/17 14:59 22:59 06:59 Intake Total 950 ml 1240 ml 900 ml Balance 950 ml 1240 ml 900 ml Exam General: Adequately build 37 year-old female lying in bed in no apparent distress. HEENT: Normocephalic, atraumatic. Eyes: Anicteric sclerae, conjunctivae clear. ENT: Nasal septum midline, oral mucosa moist. Neck supple, no JVD noticed. Respiratory: Bilaterally clear breath sounds. No use of accessory muscles of respiration. No adventitious breath sounds. Cardiovascular: S1, S2 heard. No murmurs or gallops. Abdomen: Soft, nontender, and nondistended. Bowel sounds positive in all 4 quadrants. Genitourinary: Deferred. Extremities: No cyanosis, no clubbing. Peripheral pulses palpable. LUE tenderness and mild edema. Neurologic: Cranial nerves II through XII grossly intact. The patient is awake, alert, and oriented. Skin: Normal skin turgor. No skin rashes. Results Result Diagram: 10/15/17 0325 10/15/17 0325 Results 24 hrs Laboratory Tests Test 10/14/17 10:56 10/14/17 18:19 10/14/17 18:25 10/15/17 03:25 Tobramycin Level Trough < 0.6 L Bedside Glucose 107 White Blood Count 13.3 H 11.7 H Red Blood Count 5.03 4.07 L Hemoglobin 14.4 11.8 L Hematocrit 42.4 35.0 L Mean Corpuscular Volume 84.3 86.0 Mean Corpuscular Hemoglobin 28.6 L 29.0 Mean Corpuscular Hemoglobin Concent 34.0 33.7 Red Cell Distribution Width 12.2 12.2 Platelet Count 524 H 429 H Mean Platelet Volume 9.0 9.2 Neutrophils % 65.8 67.3 Lymphocytes % 26.4 24.3 Monocytes % 6.1 6.7 Eosinophils % 0.9 0.6 Basophils % 0.2 0.3 Nucleated Red Blood Cells % 0.0 0.0 Neutrophils # 8.7 H 7.9 H Lymphocytes # 3.5 H 2.9 Monocytes # 0.8 0.8 Eosinophils # 0.1 0.1 Basophils # 0.0 0.0 Nucleated Red Blood Cells # 0.0 0.0 Sodium Level 144 142 Potassium Level 4.0 3.8 Chloride Level 106 109 Carbon Dioxide Level 24 23 Anion Gap 18 H 14 Blood Urea Nitrogen 13 10 Creatinine 0.61 0.48 Glucose Level 107 105 Calcium Level 9.1 8.4 Magnesium Level 2.4 2.3 Total Bilirubin 0.2 Direct Bilirubin 0.00 Indirect Bilirubin 0.2 Aspartate Amino Transf (AST/SGOT) 22 Alanine Aminotransferase (ALT/SGPT) 51 Alkaline Phosphatase 104 Total Protein 7.8 Albumin 4.3 Globulin 3.50 H Albumin/Globulin Ratio 1.22 Phosphorus Level 3.9 Medications Medications Current Medications Sodium Chloride (NS) 1,000 ml @ 100 mls/hr Q10H IV Last administered on 05:31; Admin Dose 100 MLS/HR; Start 10/10/17 at 02:40 Ondansetron HCl (Zofran Inj) 4 mg Q6H PRN IV NAUSEA AND/OR VOMITING; Start at 03:00 Acetaminophen (Tylenol Liquid) 650 mg Q6H PRN PO PAIN LEVEL 1-3 OR FEVER; Start 10/10/17 at 03:00 Morphine Sulfate (morphine) 2 mg Q4H PRN IV PAIN LEVEL 7-10 Last administered on 10/14/17 21:18; Admin Dose 2 MG; Start 10/10/17 at 03:00 Tobramycin (Tobramycin Iv Per Pharmacy) TOBRAMYCIN PER PHARMACY NOTE XX ; Start 10/12/17 at 10:30 Famotidine (Pepcid) 20 mg BID PO Last administered on 10/15/17 09:07; Admin Dose 20 MG; Start 10/12/17 at 10:30 IV Flush (NS 10 ml) 10 ml PRN PRN IV IV PROTOCOL; Start 10/14/17 at 16:00 Metoprolol Tartrate 25 mg 25 mg DAILY PO Last administered on 10/15/17 09:07 ; Admin Dose 25 MG; Start 10/14/17 at 21:13 Tobramycin/ Dextrose (Tobramycin/D5W) 111 ml @ 111 mls/hr Q24H IVPB ; Start at 17:00 ADEEL POWER NP Oct 15, 2017 09:36
[2017-10-15 11:02] LABS: THYROID STIMULATING HORMONE < 0.015 MIU/L (0.465-4.680)
--- NOTE | 2017-10-15 13:14 | CONS ---
Date/Time of Note Date/Time of Note DATE: 10/15/17 TIME: 13:05 Assessment/Plan Assessment/Plan Chief Complaint/Hosp Course ID PROGRESS NOTE Assessment/Plan Chief Complaint/Hosp Course * RECENT EVENT NOTED: TNS to ICU yesterday after transient episode of encephalopathy following PICC line insertion on 10/14/17. Status post evaluation by telemetry psychiatry. Brain imaging negative. Pending 2D echocardiogram results. * SUBJECTIVE: A/A/O-> eating lunch spouse present who speaks Spanish, patient is reporting pain LUEXT new PICC site and expresses concern that the PICC line is "in my heart -- I want it removed." * MICROBIOLOGY: 10/10/17 bcX (+)PSAR=MDRO; BCx 10/13/17 (-) * ALLERGIES: PENICILLIN. * ANTIMICROBIALS: Tobramycin = DAY #4 * DIAGNOSTICS: Thyroid ultrasound revealed nonspecific small subcentimeter hyperechoic nodules in the bilateral lobes with mild heterogenous echotexture of thyroid gland with vascularity being normal. Chest x-ray revealed mild right bibasilar atelectasis. PHYSICAL EXAMINATION: GENERAL: This is a well-nourished, well-developed, middle-aged woman who is alert, in no distress. HEENT: Head atraumatic, normocephalic. Sclerae anicteric. Buccal mucosa pink. NECK: Supple. CHEST: Rise symmetrical. Breath sounds clear. HEART: S1, S2. ABDOMEN: Soft, bowel tones present. EXTREMITIES: Without cyanosis or edema // LUEXT PICC w/mild edema, no significant erythema at insert site, (+)Pain on palpation surrounding area distal to actual PICC site. ID ASSESSMENT: 1. S/p sepsis, due to pulmonary source/RLL PNA per radiology imaging => resolving * Tc 99.2, WBC normalizing today 11.7, VSS 2. Pseudomonas aeruginosa bacteremia likely pulmonary source=> Repeat BCx 10/13 (-) * 10/10/17 BCx (+) Organism 1 PSEUDOMONAS AERUGINOSA P.AERUG M.I.C. RX --------- --- AMIKACIN 4 S AZTREONAM R CEFTAZIDIME 8 S CIPROFLOXACIN >=4 R GENTAMICIN 4 S IMIPENEM >=16 R LEVOFLOXACIN >=8 R TOBRAMYCIN <=1 S PIPERACILLIN/TAZOBACTAM S 3. Status post thyroid storm. 4. RLL PNA 5. Acute AMS during/following PICC Placement: * NOTE: PICC Placed in LUEXT brachial artery -- it is possible that during insertion the needle hit the brachial nerve, I have done that myself when inserting into the brachial artery which caused my patient to immediately benoit down w/transient LOC. This is a possible etiology. ID RECOMMENDATIONS/PLAN: 1. Continue Tobramycin dose per pharmacy to complete 14 days total ABX, PICC placement * Tobramycin = Today is DAY #4 / 14# total days => Last day 10/25/17 2. Due to hx of PCN allergy, Fortaz & Zosyn not recommended 3. Patient requesting PICC removed citing anxiety that it is going to "hurt my heart, going into my heart, and causing my headache, plus local pain out of the ordinary expected with picc placement. I gave extensive education and re- assurance regarding the patient's concern of PICC Line going to her heart. She has local pain at the insertion site, recommend warm pack for concern phlebitis. Will order WHIT to r/o local thrombus. Patient agreed to keep PICC today/tonight with condition whe will have pain meds ordered by JIGNESH Stark and if no thrombus and she feels better with local warm compress and pain meds she will tell us tomorrow if she will keep the PICC. Extensive education on the BENEFITS of the PICC in particular, will ensure she can go home with HH as PIV not always accepted by HH. Problems: Consultation Date/Type/Reason Admit Date/Time Oct 10, 2017 at 09:08 Initial Consult Date 10/10/17 Referring Provider: CRISTEL HILL MD Exam/Review of Systems Vital Signs Vitals Vital Signs Date Time Temp Pulse Resp B/P Pulse Ox O2 Delivery O2 Flow Rate FiO2 10/15/17 11:00 81 20 109/64 98 Room Air 10/15/17 08:00 99.2 10/15/17 02:05 2.0 10/14/17 21:07 27 Intake and Output 10/14/17 10/14/17 10/15/17 15:00 23:00 07:00 Intake Total 950 ml 1440 ml 800 ml Balance 950 ml 1440 ml 800 ml Results Result Diagram: 10/15/17 0325 10/15/17 0325 Results 24 hrs Laboratory Tests Test 10/14/17 18:19 10/14/17 18:25 10/15/17 03:25 10/15/17 04:00 Bedside Glucose 107 White Blood Count 13.3 H 11.7 H Red Blood Count 5.03 4.07 L Hemoglobin 14.4 11.8 L Hematocrit 42.4 35.0 L Mean Corpuscular Volume 84.3 86.0 Mean Corpuscular Hemoglobin 28.6 L 29.0 Mean Corpuscular Hemoglobin Concent 34.0 33.7 Red Cell Distribution Width 12.2 12.2 Platelet Count 524 H 429 H Mean Platelet Volume 9.0 9.2 Neutrophils % 65.8 67.3 Lymphocytes % 26.4 24.3 Monocytes % 6.1 6.7 Eosinophils % 0.9 0.6 Basophils % 0.2 0.3 Nucleated Red Blood Cells % 0.0 0.0 Neutrophils # 8.7 H 7.9 H Lymphocytes # 3.5 H 2.9 Monocytes # 0.8 0.8 Eosinophils # 0.1 0.1 Basophils # 0.0 0.0 Nucleated Red Blood Cells # 0.0 0.0 Sodium Level 144 142 Potassium Level 4.0 3.8 Chloride Level 106 109 Carbon Dioxide Level 24 23 Anion Gap 18 H 14 Blood Urea Nitrogen 13 10 Creatinine 0.61 0.48 Glucose Level 107 105 Calcium Level 9.1 8.4 Magnesium Level 2.4 2.3 Total Bilirubin 0.2 Direct Bilirubin 0.00 Indirect Bilirubin 0.2 Aspartate Amino Transf (AST/SGOT) 22 Alanine Aminotransferase (ALT/SGPT) 51 Alkaline Phosphatase 104 Total Protein 7.8 Albumin 4.3 Globulin 3.50 H Albumin/Globulin Ratio 1.22 Phosphorus Level 3.9 Thyroid Stimulating Hormone (TSH) < 0.015 L Free Thyroxine 3.03 H Free Triiodothyronine (T3) pg/mL 8.20 H Medications Medications Current Medications Ondansetron HCl (Zofran Inj) 4 mg Q6H PRN IV NAUSEA AND/OR VOMITING; Start at 03:00 Acetaminophen (Tylenol Liquid) 650 mg Q6H PRN PO PAIN LEVEL 1-3 OR FEVER; Start 10/10/17 at 03:00 Morphine Sulfate (morphine) 2 mg Q4H PRN IV PAIN LEVEL 7-10 Last administered on 10/14/17 21:18; Admin Dose 2 MG; Start 10/10/17 at 03:00 Tobramycin (Tobramycin Iv Per Pharmacy) TOBRAMYCIN PER PHARMACY NOTE XX ; Start 10/12/17 at 10:30 Famotidine (Pepcid) 20 mg BID PO Last administered on 10/15/17 09:07; Admin Dose 20 MG; Start 10/12/17 at 10:30 IV Flush 10 ml 10 ml PRN PRN IV IV PROTOCOL; Start 10/14/17 at 16:00 Tobramycin/ Dextrose (Tobramycin/D5W) 111 ml @ 111 mls/hr Q24H IVPB ; Start at 17:00 Metoprolol Tartrate (Lopressor) 12.5 mg BID PO ; Start 10/15/17 at 21:00 PRIYA ORELLANA NP Oct 15, 2017 13:14
--- NOTE | 2017-10-15 16:32 | RADRPT ---
PROCEDURE: US upper extremity Venous. CLINICAL INDICATION: Upper extremity swelling with left PICC line. TECHNIQUE: Multiple sonographic images of the left upper extremity venous system was obtained util izing estrella scale, color-flow, compressive sonography and doppler imaging with augmentation. COMPARISON: 10/14/2017 FINDINGS: There is normal compressibility, phasicity and flow demonstrated within the left internal jugular ve in, subclavian vein, axillary vein and brachial vein. Normal compressibility of the basilic and ceph alic veins. IMPRESSION: No sonographic evidence for left upper extremity venous thrombosis. RPTAT:AAJJ Physician Tracey Date Time Electronically viewed and signed by Physician Tracey on 10/15/2017 16:32 /
[2017-10-15] MEDS: DEXTROSE 5% IVPB SCH (17:03)
[2017-10-15] MEDS: TOBRAMYCIN IVPB SCH (17:03)
[2017-10-15] MEDS: morphine 2 MG INJ IV PRN (20:10)
[2017-10-15 20:34] LABS: BASOPHILS % 0.3 % (0.0-2.0); EOSINOPHILS # 0.1 10^3/ul (0.0-0.5); EOSINOPHILS % 0.6 % (0.0-7.0); HEMATOCRIT 39.5 % (37.0-47.0); HEMOGLOBIN 13.6 g/dl (12.0-16.0); LYMPHOCYTES # 2.5 10^3/ul (0.8-2.9); LYMPHOCYTES % 17.8 % (15.0-51.0); MEAN CORPUSCULAR HEMOGLOBIN 29.2 pg (29.0-33.0); MEAN CORPUSCULAR HGB CONC 34.4 g/dl (32.0-37.0); MEAN CORPUSCULAR VOLUME 84.8 fl (82.0-101.0); MEAN PLATELET VOLUME 8.9 fl (7.4-10.4); MONOCYTE # 0.9 10^3/ul (0.3-0.9); MONOCYTES % 6.6 % (0.0-11.0); NEUTROPHIL # 10.5 10^3/ul (1.6-7.5); NEUTROPHILS % 74.2 % (39.0-77.0); PLATELET COUNT 480 10^3/UL (140-415); RED BLOOD COUNT 4.66 10^6/ul (4.20-5.40); RED CELL DISTRIBUTION WIDTH 12.3 % (11.5-14.5); WHITE BLOOD COUNT 14.2 10^3/ul (4.8-10.8)
--- NOTE | 2017-10-15 20:43 | EN ---
Date/Time of Note Date/Time of Note DATE: 10/15/17 TIME: 20:35 Event Note Medicine Medicine Event Note INSPECTOR PRECISION note Was called to the room to assess the patient for chest pain. Patient reports chest pain on the left side along with her pain down her arm. BP 133/69 HR 140. She states also she feels pressure every time they use the PICC line in the left arm. Previous chest xrays showed adequate location of the picc line. vitals: 133/69 HR 140 Sp02: 96% on RA. heent: nc/at [facility]: sinus tachy, no murmurs lungs: clear to auscultation to bilaterally neuro: a and oriented x3, cn 2 - 12 intact, no focal deficits psych: anxious EKG: sinus tachycardia at 125 bpm a/p: #1 Sinus tachycardia: picc line irritation vs. anxiety vs. hyperthyroid. During the social media coordinator she was feeling pressure when receiving morphine iv. As this is the second episode that occured post -picc line insertion I decided to remove the picc line as it may be irritating the heart muscle or it could be causing her anxiety as well. Prior to removal, we were able to establish iv access in the right arm. BENIGNO SMITH Oct 15, 2017 20:43
[2017-10-15] MEDS: ACETAMINOPHEN 650MG/20.3ML CUP PO PRN (20:44)
[2017-10-15 20:52] LABS: ANION GAP 18 (8-16); BLOOD UREA NITROGEN 9 mg/dl (7-20); CALCIUM 9.4 mg/dl (8.4-10.2); CARBON DIOXIDE 23 mmol/L (21-31); CHLORIDE 105 mmol/L (97-110); CREATININE 0.52 mg/dl (0.44-1.00); GLUCOSE 182 mg/dl (70-220); POTASSIUM 3.8 mmol/L (3.5-5.1); SODIUM 142 mmol/L (135-144)
[2017-10-15 21:03] LABS: CK-MB < 0.22 ng/ml (0.0-2.4)
--- NOTE | 2017-10-15 21:30 | RADRPT ---
PROCEDURE: XR Chest. CLINICAL INDICATION: PICC line placement. TECHNIQUE: Single frontal chest x-ray. COMPARISON: 10/14/2017 FINDINGS: Previously demonstrated left PICC line has been removed. No PICC line is within the field of view of the chest or axilla. No other catheter is present. Heart is normal size. There is no congestive he art failure.. No focal infiltrate is seen. There is no pleural effusion. There is no pneumothorax. The osseous structures are unremarkable. IMPRESSION: Interval removal of left-sided PICC line. No catheter or line is within the field of view. RPTAT: HMVK .Sacha Dillard MD, MD Date Time Electronically viewed and signed by .Sacha Dillard MD, on 10/15/2017 21:30 .K/
[2017-10-16] VITALS (12 sets, daily range): BP systolic 107–123; BP diastolic 50–68; PULSE 75–120; RESP 16–20
[2017-10-16 01:22] LABS: CREATINE KINASE < 20 IU/L (23-200)
[2017-10-16 01:24] LABS: CK-MB < 0.22 ng/ml (0.0-2.4); TROPONIN-I < 0.012 ng/ml (0.00-0.12)
[2017-10-16 06:30] LABS: BASOPHILS % 0.1 % (0.0-2.0); EOSINOPHILS # 0.1 10^3/ul (0.0-0.5); EOSINOPHILS % 0.9 % (0.0-7.0); HEMATOCRIT 40.3 % (37.0-47.0); HEMOGLOBIN 13.4 g/dl (12.0-16.0); LYMPHOCYTES # 2.7 10^3/ul (0.8-2.9); LYMPHOCYTES % 20.4 % (15.0-51.0); MEAN CORPUSCULAR HEMOGLOBIN 28.7 pg (29.0-33.0); MEAN CORPUSCULAR HGB CONC 33.3 g/dl (32.0-37.0); MEAN CORPUSCULAR VOLUME 86.3 fl (82.0-101.0); MEAN PLATELET VOLUME 9.1 fl (7.4-10.4); MONOCYTE # 1.1 10^3/ul (0.3-0.9); MONOCYTES % 8.6 % (0.0-11.0); NEUTROPHIL # 9.2 10^3/ul (1.6-7.5); NEUTROPHILS % 69.2 % (39.0-77.0); PLATELET COUNT 450 10^3/UL (140-415); RED BLOOD COUNT 4.67 10^6/ul (4.20-5.40); RED CELL DISTRIBUTION WIDTH 12.4 % (11.5-14.5); WHITE BLOOD COUNT 13.3 10^3/ul (4.8-10.8)
[2017-10-16 06:44] LABS: MAGNESIUM 2.3 mg/dl (1.7-2.5); PHOSPHORUS 4.8 mg/dl (2.5-4.9)
[2017-10-16] MEDS: METHIMAZOLE 5 MG TAB PO SCH (06:45)
[2017-10-16 06:53] LABS: CREATINE KINASE < 20 IU/L (23-200)
[2017-10-16 06:55] LABS: CK-MB < 0.22 ng/ml (0.0-2.4); TROPONIN-I < 0.012 ng/ml (0.00-0.12)
[2017-10-16 07:19] LABS: CALCIUM 9.4 mg/dl (8.4-10.2); CREATININE 0.7 mg/dl (0.44-1.00); POTASSIUM 4.6 mmol/L (3.5-5.1)
[2017-10-16] MEDS: FAMOTIDINE 20 MG TAB PO SCH ×2 (08:35→20:24)
[2017-10-16] MEDS: METOPROLOL 25 MG TAB PO SCH ×2 (08:36→20:24)
--- NOTE | 2017-10-16 09:48 | CONS ---
Date/Time of Note Date/Time of Note DATE: 10/16/17 TIME: 09:46 Assessment/Plan Assessment/Plan Chief Complaint/Hosp Course 37-year-old female who was admitted with thyrotoxicosis. Please note she was labeled as having thyroid storm but did not have fever tachycardia [id number]. As I obtained the history from the patient she had been checked for thyroid disorder roughly 2-3 years ago but and been told everything was okay. Please note this differs from what the emergency room physician and the admission H&P state. In the last 2 weeks as I understood the history she developed tenderness in the area of the neck with fevers by tactile sensation but not measured. She developed multiple symptoms of thyrotoxicosis over the last 2 weeks and presented to the emergency room. In our emergency room she was obviously hyperthyroid Problems: (1) Thyroid crisis or storm Status: Acute Comment: Blood tests indicates the appropriate speed of improvement using the antithyroid drug therapy. This was not thyroid storm. She should continue on this and have her blood tested in roughly 5 weeks. They have my contact information to follow-up with me in the office Qualifiers: Thyrotoxicosis type: unspecified thyrotoxicosis type Qualified Code: E05.91 - Thyrotoxicosis with thyrotoxic crisis, unspecified thyrotoxicosis type (2) Bacteremia due to Pseudomonas Status: Acute Comment: As per infectious diseases. (3) Altered mental status, unspecified Status: Acute Comment: This is a very interesting scenario [facility] connecting it with the PICC line is interesting. The since the PICC line was out the patient's better she can be observed and discharged as per the primary care team and infectious diseases Qualifiers: Altered mental status type: unspecified Qualified Code: R41.82 - Altered mental status, unspecified altered mental status type Consultation Date/Type/Reason Admit Date/Time Oct 10, 2017 at 09:08 Initial Consult Date 10/10/17 Type of Consultation: Endocrinology Reason for Consultation Hyperthyroidism Referring Provider: CRISTEL HILL MD 24 HR Interval Summary Free Text/Dictation Patient reports she feels much better since removal of the PICC line. Please note from a timeline standpoint she reports her significant symptoms date to the placement of the PICC line and their resolution to the date timing of the removal of the PICC line Constitutional: no complaints Detailed Summary Respiratory: no complaints Gastrointestinal: no complaints Exam/Review of Systems Vital Signs Vitals Vital Signs Date Time Temp Pulse Resp B/P Pulse Ox O2 Delivery O2 Flow Rate FiO2 10/16/17 08:12 87 10/16/17 08:00 98.0 16 117/68 97 10/16/17 04:16 Room Air 10/15/17 02:05 2.0 10/14/17 21:07 27 Intake and Output 10/15/17 10/15/17 10/16/17 15:00 23:00 07:00 Intake Total 560 ml 360 ml 300 ml Balance 560 ml 360 ml 300 ml Exam Constitutional: alert, oriented Respiratory: clear to auscultation, normal air movement Cardiovascular: nl pulses, regular rate and rhythm Gastrointestinal: nl liver, spleen, non-tender, soft Results Result Diagram: 10/16/17 0546 10/16/17 0546 Results 24 hrs Laboratory Tests Test 10/15/17 20:27 10/16/17 00:26 10/16/17 05:46 White Blood Count 14.2 #H 13.3 H Red Blood Count 4.66 4.67 Hemoglobin 13.6 13.4 Hematocrit 39.5 40.3 Mean Corpuscular Volume 84.8 86.3 Mean Corpuscular Hemoglobin 29.2 28.7 L Mean Corpuscular Hemoglobin Concent 34.4 33.3 Red Cell Distribution Width 12.3 12.4 Platelet Count 480 H 450 H Mean Platelet Volume 8.9 9.1 Neutrophils % 74.2 69.2 Lymphocytes % 17.8 20.4 Monocytes % 6.6 8.6 Eosinophils % 0.6 0.9 Basophils % 0.3 0.1 Nucleated Red Blood Cells % 0.0 0.0 Neutrophils # 10.5 H 9.2 H Lymphocytes # 2.5 2.7 Monocytes # 0.9 1.1 H Eosinophils # 0.1 0.1 Basophils # 0.0 0.0 Nucleated Red Blood Cells # 0.0 0.0 Sodium Level 142 142 Potassium Level 3.8 4.6 Chloride Level 105 105 Carbon Dioxide Level 23 24 Anion Gap 18 H 18 H Blood Urea Nitrogen 9 12 Creatinine 0.52 0.70 Glucose Level 182 114 # Calcium Level 9.4 9.4 Creatinine Kinase MB (Mass) < 0.22 < 0.22 < 0.22 Creatine Kinase < 20 L < 20 L Creatine Kinase Index Troponin I < 0.012 < 0.012 Phosphorus Level 4.8 Magnesium Level 2.3 Medications Medications Current Medications Ondansetron HCl (Zofran Inj) 4 mg Q6H PRN IV NAUSEA AND/OR VOMITING; Start at 03:00 Acetaminophen (Tylenol Liquid) 650 mg Q6H PRN PO PAIN LEVEL 1-3 OR FEVER Last administered on 10/15/17 20:44; Admin Dose 650 MG; Start 10/10/17 at 03:00 Morphine Sulfate (morphine) 2 mg Q4H PRN IV PAIN LEVEL 7-10 Last administered on 10/15/17 20:10; Admin Dose 2 MG; Start 10/10/17 at 03:00 Tobramycin (Tobramycin Iv Per Pharmacy) TOBRAMYCIN PER PHARMACY NOTE XX ; Start 10/12/17 at 10:30 Famotidine (Pepcid) 20 mg BID PO Last administered on 10/16/17 08:35; Admin Dose 20 MG; Start 10/12/17 at 10:30 IV Flush 10 ml 10 ml PRN PRN IV IV PROTOCOL; Start 10/14/17 at 16:00 Tobramycin/ Dextrose (Tobramycin/D5W) 111 ml @ 111 mls/hr Q24H IVPB Last administered on 10/15/17 17:03; Admin Dose 111 MLS/HR; Start 10/15/17 at 17: 00 Metoprolol Tartrate (Lopressor) 12.5 mg BID PO Last administered on 10/16/17 08:36; Admin Dose 12.5 MG; Start 10/15/17 at 21:00 Acetaminophen/ Hydrocodone Bitart ([place] (5/325)) 1 tab Q6H PRN PO Pain; Start 10/15/17 at 14:00 ANNIE BRISCOE MD Oct 16, 2017 09:48
--- NOTE | 2017-10-16 11:44 | PN ---
Date/Time of Note Date/Time of Note DATE: 10/16/17 TIME: 11:43 Assessment/Plan VTE Prophylaxis VTE Prophylaxis Intervention: SCD's Lines/Catheters IV [facility] Urinary Cath still in place: No Assessment/Plan Chief Complaint/Hosp Course 1. Thyrotoxicosis. The patient being followed by endocrinology. The patient is on methimazole. 2. Transient episode of encephalopathy following PICC line insertion on . Status post evaluation by telemetry psychiatry. Brain imaging negative. The patient was moved to the intensive care unit on 10/14/2017 for close monitoring. Pending 2D echocardiogram. 3. Sepsis with underlying Pseudomonas aeruginosa bacteremia. Etiology unclear. On antimicrobials as per infectious diseases. 4. Sinus tachycardia. Most probably secondary to #1. On low-dose blockers. 5. Fluids, electrolytes, and nutrition. Regular diet. 6. DVT prophylaxis. SCDs. 7. Gastrointestinal prophylaxis. On histamine 2 receptor santosh since patient was getting high-dose steroids. 8. Plan. The patient's left upper extremity PICC line has been removed last night because the patient continued to have chest discomfort and chest pain that was relieved after removal of the left upper extremity PICC line. Will confirm with infectious diseases regarding the need for a PICC line. Case discussed with Dr. Lundberg. Problems: Subjective 24 Hr Interval Summary Free Text/Dictation The patient had another episode of left-sided chest wall pain that was relieved with morphine and after removal of the left-sided PICC line. Exam/Review of Systems Vital Signs Vitals Vital Signs Date Time Temp Pulse Resp B/P Pulse Ox O2 Delivery O2 Flow Rate FiO2 10/16/17 08:12 87 10/16/17 08:00 98.0 16 117/68 97 10/16/17 04:16 Room Air 10/15/17 02:05 2.0 10/14/17 21:07 27 Intake and Output 10/15/17 10/15/17 10/16/17 15:00 23:00 07:00 Intake Total 560 ml 360 ml 300 ml Balance 560 ml 360 ml 300 ml Exam General: Adequately build 37 year-old female lying in bed in no apparent distress. HEENT: Normocephalic, atraumatic. Eyes: Anicteric sclerae, conjunctivae clear. ENT: Nasal septum midline, oral mucosa moist. Neck supple, no JVD noticed. Respiratory: Bilaterally clear breath sounds. No use of accessory muscles of respiration. No adventitious breath sounds. Cardiovascular: S1, S2 heard. No murmurs or gallops. Abdomen: Soft, nontender, and nondistended. Bowel sounds positive in all 4 quadrants. Genitourinary: Deferred. Extremities: No cyanosis, no clubbing. Peripheral pulses palpable. LUE no tenderness and mild edema. Neurologic: Cranial nerves II through XII grossly intact. The patient is awake, alert, and oriented. Skin: Normal skin turgor. No skin rashes. Results Result Diagram: 10/16/1746 10/16/1746 Results 24 hrs Laboratory Tests Test 10/15/17 20:27 10/16/17 00:26 10/16/17 05:46 White Blood Count 14.2 #H 13.3 H Red Blood Count 4.66 4.67 Hemoglobin 13.6 13.4 Hematocrit 39.5 40.3 Mean Corpuscular Volume 84.8 86.3 Mean Corpuscular Hemoglobin 29.2 28.7 L Mean Corpuscular Hemoglobin Concent 34.4 33.3 Red Cell Distribution Width 12.3 12.4 Platelet Count 480 H 450 H Mean Platelet Volume 8.9 9.1 Neutrophils % 74.2 69.2 Lymphocytes % 17.8 20.4 Monocytes % 6.6 8.6 Eosinophils % 0.6 0.9 Basophils % 0.3 0.1 Nucleated Red Blood Cells % 0.0 0.0 Neutrophils # 10.5 H 9.2 H Lymphocytes # 2.5 2.7 Monocytes # 0.9 1.1 H Eosinophils # 0.1 0.1 Basophils # 0.0 0.0 Nucleated Red Blood Cells # 0.0 0.0 Sodium Level 142 142 Potassium Level 3.8 4.6 Chloride Level 105 105 Carbon Dioxide Level 23 24 Anion Gap 18 H 18 H Blood Urea Nitrogen 9 12 Creatinine 0.52 0.70 Glucose Level 182 114 # Calcium Level 9.4 9.4 Creatinine Kinase MB (Mass) < 0.22 < 0.22 < 0.22 Creatine Kinase < 20 L < 20 L Creatine Kinase Index Troponin I < 0.012 < 0.012 Phosphorus Level 4.8 Magnesium Level 2.3 Medications Medications Current Medications Ondansetron HCl (Zofran Inj) 4 mg Q6H PRN IV NAUSEA AND/OR VOMITING; Start at 03:00 Acetaminophen (Tylenol Liquid) 650 mg Q6H PRN PO PAIN LEVEL 1-3 OR FEVER Last administered on 10/15/17 20:44; Admin Dose 650 MG; Start 10/10/17 at 03:00 Morphine Sulfate (morphine) 2 mg Q4H PRN IV PAIN LEVEL 7-10 Last administered on 10/15/17 20:10; Admin Dose 2 MG; Start 10/10/17 at 03:00 Tobramycin (Tobramycin Iv Per Pharmacy) TOBRAMYCIN PER PHARMACY NOTE XX ; Start 10/12/17 at 10:30 Famotidine (Pepcid) 20 mg BID PO Last administered on 10/16/17 08:35; Admin Dose 20 MG; Start 10/12/17 at 10:30 IV Flush 10 ml 10 ml PRN PRN IV IV PROTOCOL; Start 10/14/17 at 16:00 Tobramycin/ Dextrose (Tobramycin/D5W) 111 ml @ 111 mls/hr Q24H IVPB Last administered on 10/15/17 17:03; Admin Dose 111 MLS/HR; Start 10/15/17 at 17: 00 Metoprolol Tartrate (Lopressor) 12.5 mg BID PO Last administered on 10/16/17 08:36; Admin Dose 12.5 MG; Start 10/15/17 at 21:00 Acetaminophen/ Hydrocodone Bitart ([place] (5/325)) 1 tab Q6H PRN PO Pain; Start 10/15/17 at 14:00 ADEEL POWER NP Oct 16, 2017 11:44
[2017-10-16 12:10] LABS: CREATINE KINASE < 20 IU/L (23-200)
[2017-10-16 12:19] LABS: CK-MB < 0.22 ng/ml (0.0-2.4); TROPONIN-I < 0.012 ng/ml (0.00-0.12)
--- NOTE | 2017-10-16 14:49 | CONS ---
Date/Time of Note Date/Time of Note DATE: 10/16/17 TIME: 14:22 Assessment/Plan Assessment/Plan Chief Complaint/Hosp Course ID PROGRESS NOTE CURRENT ABX: Tobramycin IV = Today is DAY #5 / 14# total days => Last day Assessment/Plan Chief Complaint/Hosp Course * PICC DC'd due to recurrent chest pain -> patient w/anxiety over recent event headache, CP, AMS during PICC insertion --> Possibly due to brachial nerve injury/irritation w/possible vasovagal event during/after PICC insertion. * MICROBIOLOGY: 10/10/17 bcX (+)PSAR=MDRO; BCx 10/13/17 (-) * ALLERGIES: PENICILLIN. * ANTIMICROBIALS: Tobramycin = DAY #4 * DIAGNOSTICS: Thyroid ultrasound revealed nonspecific small subcentimeter hyperechoic nodules in the bilateral lobes with mild heterogenous echotexture of thyroid gland with vascularity being normal. Chest x-ray revealed mild right bibasilar atelectasis. PHYSICAL EXAMINATION: GENERAL: This is a well-nourished, well-developed, middle-aged woman who is alert, in no distress. HEENT: Head atraumatic, normocephalic. Sclerae anicteric. Buccal mucosa pink. NECK: Supple. CHEST: Rise symmetrical. Breath sounds clear. HEART: S1, S2. ABDOMEN: Soft, bowel tones present. EXTREMITIES: Without cyanosis or edema // LUEXT PICC w/mild edema, no significant erythema at insert site, (+)Pain on palpation surrounding area distal to actual PICC site. ID ASSESSMENT: 1. S/p sepsis, due to pulmonary source/RLL PNA per radiology imaging => resolving * Tc 99.2, WBC normalizing today 11.7, VSS 2. Pseudomonas aeruginosa bacteremia likely pulmonary source=> Repeat BCx 10/13 (-) * 10/10/17 BCx (+) Organism 1 PSEUDOMONAS AERUGINOSA P.AERUG M.I.C. RX --------- --- AMIKACIN 4 S AZTREONAM R CEFTAZIDIME 8 S CIPROFLOXACIN >=4 R GENTAMICIN 4 S IMIPENEM >=16 R LEVOFLOXACIN >=8 R TOBRAMYCIN <=1 S PIPERACILLIN/TAZOBACTAM S 3. Status post thyroid storm. 4. RLL PNA 5. Acute AMS during/following PICC Placement: * NOTE: PICC Placed in LUEXT brachial artery -- it is possible that during insertion the needle hit the brachial nerve, I have done that myself when inserting into the brachial artery which caused my patient to immediately benoit down w/transient LOC. This is a possible etiology. ID RECOMMENDATIONS/PLAN: 1. May DC home to Tobramycin IV ABX w/continued dose per outside pharmacy, administration via Peripheral IV (Aminoglycoside is NOT a vesicant) to complete ABX course as below. CURRENT ABX: Tobramycin IV = Today is DAY ## total days => Last day INDICATION: 10/11/17 BLOOD CULTURE Final BCULT GRAM BOTTLE 1 Gram negative rods Organism 1 PSEUDOMONAS AERUGINOSA P.AERUG M.I.C. RX --------- --- AMIKACIN 4 S AZTREONAM R CEFTAZIDIME 8 S CIPROFLOXACIN >=4 R GENTAMICIN 4 S IMIPENEM >=16 R LEVOFLOXACIN >=8 R TOBRAMYCIN <=1 S PIPERACILLIN/TAZOBACTAM S BASELINES: WT: 79.3 kg / BSA 1.91 m2 / BMI 31.0 S. Creatinine range (0.45 - 0.7) TOBRA 440mg IV start date 10/12/17 x1 @ 1200 * Random Tobra level drawn 10/12/17 @ 22:55 = 0.9 [facility] Rx: Tobra 440mg IV Q24 H 10/13/17 User: Felecia Wilcox [facility] Date: 10/13/17 12:01 Type: Pharmacist Notes Tobramycin per Rx Tobramycin random level = 0.9 (drawn at 22:55, ~10 hours post dose) Dose = 440 mg q24h extended interval protocol CC: Pseudomonas blood culture WBC 11.8 BUN/Scr 16/0.63 A/P: Continue Tobramycin 440 mg IVPB q24h. Check trough tomorrow prior to 3rd dose. Pharmacy to follow. 10/14/17 @ 10:56 -> TOBRA Trough Level 0.6 User: Felecia Wilcox [facility] Date: 10/14/17 12:25 Type: Pharmacist Notes Tobramycin per Rx Tobramycin trough < 0.6 Dose = 440 mg q24h CC: Bacteremia WBC 12.4 BUN/Scr 14/0.6 A/P: Continue Tobramycin 440 mg IVPB q24h. Pharmacy to follow. Last dose given 10/15/17 @ 1700: Tobra 440mg IV Q24 H Next dose due 10/16/17 @ 1700: Tobra 440mg IV Q24 H [facility] ON 10/17/17 @ 1100 : Draw Tobra Trough level, BUN, S.Creatinine Continue Tobra IV dosing per OP Clinical Pharmacist Problems: Consultation Date/Type/Reason Admit Date/Time Oct 10, 2017 at 09:08 Initial Consult Date 10/10/17 Referring Provider: CRISTEL HILL MD Exam/Review of Systems Vital Signs Vitals Vital Signs Date Time Temp Pulse Resp B/P Pulse Ox O2 Delivery O2 Flow Rate FiO2 10/16/17 12:06 104 10/16/17 12:05 98.7 18 108/58 97 10/16/17 04:16 Room Air 10/15/17 02:05 2.0 10/14/17 21:07 27 Intake and Output 10/15/17 10/15/17 10/16/17 15:00 23:00 07:00 Intake Total 560 ml 360 ml 300 ml Balance 560 ml 360 ml 300 ml Results Result Diagram: 10/16/17 0546 10/16/17 0546 Results 24 hrs Laboratory Tests Test 10/15/17 20:27 10/16/17 00:26 10/16/17 05:46 10/16/17 11:17 White Blood Count 14.2 #H 13.3 H Red Blood Count 4.66 4.67 Hemoglobin 13.6 13.4 Hematocrit 39.5 40.3 Mean Corpuscular Volume 84.8 86.3 Mean Corpuscular Hemoglobin 29.2 28.7 L Mean Corpuscular Hemoglobin Concent 34.4 33.3 Red Cell Distribution Width 12.3 12.4 Platelet Count 480 H 450 H Mean Platelet Volume 8.9 9.1 Neutrophils % 74.2 69.2 Lymphocytes % 17.8 20.4 Monocytes % 6.6 8.6 Eosinophils % 0.6 0.9 Basophils % 0.3 0.1 Nucleated Red Blood Cells % 0.0 0.0 Neutrophils # 10.5 H 9.2 H Lymphocytes # 2.5 2.7 Monocytes # 0.9 1.1 H Eosinophils # 0.1 0.1 Basophils # 0.0 0.0 Nucleated Red Blood Cells # 0.0 0.0 Sodium Level 142 142 Potassium Level 3.8 4.6 Chloride Level 105 105 Carbon Dioxide Level 23 24 Anion Gap 18 H 18 H Blood Urea Nitrogen 9 12 Creatinine 0.52 0.70 Glucose Level 182 114 # Calcium Level 9.4 9.4 Creatinine Kinase MB (Mass) < 0.22 < 0.22 < 0.22 < 0.22 Creatine Kinase < 20 L < 20 L < 20 L Creatine Kinase Index Troponin I < 0.012 < 0.012 < 0.012 Phosphorus Level 4.8 Magnesium Level 2.3 Medications Medications Current Medications Ondansetron HCl (Zofran Inj) 4 mg Q6H PRN IV NAUSEA AND/OR VOMITING; Start at 03:00 Acetaminophen (Tylenol Liquid) 650 mg Q6H PRN PO PAIN LEVEL 1-3 OR FEVER Last administered on 10/15/17 20:44; Admin Dose 650 MG; Start 10/10/17 at 03:00 Morphine Sulfate (morphine) 2 mg Q4H PRN IV PAIN LEVEL 7-10 Last administered on 10/15/17 20:10; Admin Dose 2 MG; Start 10/10/17 at 03:00 Tobramycin (Tobramycin Iv Per Pharmacy) TOBRAMYCIN PER PHARMACY NOTE XX ; Start 10/12/17 at 10:30 Famotidine (Pepcid) 20 mg BID PO Last administered on 10/16/17 08:35; Admin Dose 20 MG; Start 10/12/17 at 10:30 IV Flush 10 ml 10 ml PRN PRN IV IV PROTOCOL; Start 10/14/17 at 16:00 Tobramycin/ Dextrose (Tobramycin/D5W) 111 ml @ 111 mls/hr Q24H IVPB Last administered on 10/15/17 17:03; Admin Dose 111 MLS/HR; Start 10/15/17 at 17: 00 Metoprolol Tartrate (Lopressor) 12.5 mg BID PO Last administered on 10/16/17 08:36; Admin Dose 12.5 MG; Start 10/15/17 at 21:00 Acetaminophen/ Hydrocodone Bitart ([place] (5/325)) 1 tab Q6H PRN PO Pain; Start 10/15/17 at 14:00 PRIYA ORELLANA NP Oct 16, 2017 14:33
[2017-10-16] MEDS: TOBRAMYCIN IVPB SCH (17:36)
[2017-10-16] MEDS: DEXTROSE 5% IVPB SCH (17:36)
[2017-10-16] MEDS: ACETAMINOPHEN 650MG/20.3ML CUP PO PRN (17:47)
[2017-10-16 19:27] LABS: CREATINE KINASE < 20 IU/L (23-200)
[2017-10-16 19:47] LABS: CK-MB < 0.22 ng/ml (0.0-2.4); TROPONIN-I < 0.012 ng/ml (0.00-0.12)
[2017-10-17] VITALS (14 sets, daily range): BP systolic 97–134; BP diastolic 51–68; PULSE 80–133; RESP 18–22
[2017-10-17] MEDS: METHIMAZOLE 5 MG TAB PO SCH (06:39)
[2017-10-17 06:40] LABS: BASOPHILS % 0.3 % (0.0-2.0); EOSINOPHILS # 0.2 10^3/ul (0.0-0.5); EOSINOPHILS % 1.3 % (0.0-7.0); HEMATOCRIT 42.9 % (37.0-47.0); HEMOGLOBIN 14.8 g/dl (12.0-16.0); LYMPHOCYTES # 2.5 10^3/ul (0.8-2.9); LYMPHOCYTES % 19.1 % (15.0-51.0); MEAN CORPUSCULAR HEMOGLOBIN 29.3 pg (29.0-33.0); MEAN CORPUSCULAR HGB CONC 34.5 g/dl (32.0-37.0); MEAN PLATELET VOLUME 9.8 fl (7.4-10.4); MONOCYTES % 7.6 % (0.0-11.0); NEUTROPHIL # 9.4 10^3/ul (1.6-7.5); NEUTROPHILS % 70.9 % (39.0-77.0); NUCLEATED RED BLOOD CELLS% 0.2 /100WBC (0.0-0.0); PLATELET COUNT 416 10^3/UL (140-415); RED BLOOD COUNT 5.05 10^6/ul (4.20-5.40); RED CELL DISTRIBUTION WIDTH 12.5 % (11.5-14.5); WHITE BLOOD COUNT 13.2 10^3/ul (4.8-10.8)
[2017-10-17 07:45] LABS: CALCIUM 9.7 mg/dl (8.4-10.2); CREATININE 0.55 mg/dl (0.44-1.00); POTASSIUM 4.4 mmol/L (3.5-5.1)
[2017-10-17 08:23] LABS: MAGNESIUM 2.3 mg/dl (1.7-2.5)
--- NOTE | 2017-10-17 08:33 | CONS ---
Date/Time of Note Date/Time of Note DATE: 10/17/17 TIME: 08:30 Assessment/Plan Assessment/Plan Chief Complaint/Hosp Course 37-year-old female who was admitted with thyrotoxicosis. Please note she was labeled as having thyroid storm but did not have fever tachycardia [id number]. As I obtained the history from the patient she had been checked for thyroid disorder roughly 2-3 years ago but and been told everything was okay. Please note this differs from what the emergency room physician and the admission H&P state. In the last 2 weeks as I understood the history she developed tenderness in the area of the neck with fevers by tactile sensation but not measured. She developed multiple symptoms of thyrotoxicosis over the last 2 weeks and presented to the emergency room. In our emergency room she was obviously hyperthyroid Problems: (1) Hyperthyroidism Status: Acute Comment: She is settling down on the methimazole therapy. Please note this is not a rapid and abrupt process. There is no evidence of untoward reaction of methimazole especially her neutrophil counts are normal. Continue methimazole 20 mg today with a blood retest in 5 weeks. (2) Bacteremia due to Pseudomonas Status: Acute Comment: This is also very interesting problem especially since it appears she is not tolerating the aminoglycoside infusion. Historically her history of allergy to penicillin is actually pretty thin. There may be a consideration to give her a test dose of to ceftazidime, and see how she does. If she tolerates this this may be the best way to treat her. Of course we have the additional issue that after the 6 days of hospitalization case management was discovered that she has restricted Medi-Silvio and that will complicate her placement/ discharge Consultation Date/Type/Reason Admit Date/Time Oct 10, 2017 at 09:08 Initial Consult Date 10/10/17 Type of Consultation: Endocrinology Reason for Consultation Hyperthyroidism; Pseudomonas bacteremia Referring Provider: CRISTEL HILL MD 24 HR Interval Summary Free Text/Dictation Patient again had a reaction to the IV tobramycin infused through peripheral IV yesterday. Constitutional: no complaints Detailed Summary Respiratory: no complaints Cardiovascular: no complaints Gastrointestinal: no complaints Exam/Review of Systems Vital Signs Vitals Vital Signs Date Time Temp Pulse Resp B/P Pulse Ox O2 Delivery O2 Flow Rate FiO2 10/17/17 08:10 85 10/17/17 07:30 99.7 22 106/53 99 10/16/17 04:16 Room Air 10/15/17 02:05 2.0 10/14/17 21:07 27 Intake and Output 10/16/17 10/16/17 10/17/17 15:00 23:00 07:00 Intake Total 700 ml 400 ml Balance 700 ml 400 ml Exam Constitutional: alert, oriented Neck: non-tender, supple, thyromegaly (Minimal without nodules) Respiratory: clear to auscultation, normal air movement Cardiovascular: nl pulses, regular rate and rhythm Results Result Diagram: 10/17/17 0608 10/17/17 0608 Results 24 hrs Laboratory Tests Test 10/16/17 11:17 10/16/17 18:40 10/17/17 06:08 Creatine Kinase < 20 L < 20 L Creatine Kinase Index Creatinine Kinase MB (Mass) < 0.22 < 0.22 Troponin I < 0.012 < 0.012 White Blood Count 13.2 H Red Blood Count 5.05 Hemoglobin 14.8 Hematocrit 42.9 Mean Corpuscular Volume 85.0 Mean Corpuscular Hemoglobin 29.3 Mean Corpuscular Hemoglobin Concent 34.5 Red Cell Distribution Width 12.5 Platelet Count 416 H Mean Platelet Volume 9.8 Neutrophils % 70.9 Lymphocytes % 19.1 Monocytes % 7.6 Eosinophils % 1.3 Basophils % 0.3 Nucleated Red Blood Cells % 0.2 H Neutrophils # 9.4 H Lymphocytes # 2.5 Monocytes # 1.0 H Eosinophils # 0.2 Basophils # 0.0 Nucleated Red Blood Cells # 0.0 Sodium Level 141 Potassium Level 4.4 Chloride Level 104 Carbon Dioxide Level 26 Anion Gap 15 Blood Urea Nitrogen 10 Creatinine 0.55 Glucose Level 114 Calcium Level 9.7 Phosphorus Level 4.0 Magnesium Level 2.3 Medications Medications Current Medications Ondansetron HCl (Zofran Inj) 4 mg Q6H PRN IV NAUSEA AND/OR VOMITING; Start at 03:00 Acetaminophen (Tylenol Liquid) 650 mg Q6H PRN PO PAIN LEVEL 1-3 OR FEVER Last administered on 10/16/17 17:47; Admin Dose 650 MG; Start 10/10/17 at 03:00 Morphine Sulfate (morphine) 2 mg Q4H PRN IV PAIN LEVEL 7-10 Last administered on 10/15/17 20:10; Admin Dose 2 MG; Start 10/10/17 at 03:00 Tobramycin (Tobramycin Iv Per Pharmacy) TOBRAMYCIN PER PHARMACY NOTE XX ; Start 10/12/17 at 10:30 Famotidine (Pepcid) 20 mg BID PO Last administered on 10/16/17 20:24; Admin Dose 20 MG; Start 10/12/17 at 10:30 IV Flush 10 ml 10 ml PRN PRN IV IV PROTOCOL; Start 10/14/17 at 16:00 Tobramycin/ Dextrose (Tobramycin/D5W) 111 ml @ 111 mls/hr Q24H IVPB Last administered on 10/16/17 17:36; Admin Dose 111 MLS/HR; Start 10/15/17 at 17: 00 Metoprolol Tartrate (Lopressor) 12.5 mg BID PO Last administered on 10/16/17 20:24; Admin Dose 12.5 MG; Start 10/15/17 at 21:00 Acetaminophen/ Hydrocodone Bitart ([place] (5/325)) 1 tab Q6H PRN PO Pain; Start 10/15/17 at 14:00 ANNIE BRISCOE MD Oct 17, 2017 08:33
[2017-10-17] MEDS: FAMOTIDINE 20 MG TAB PO SCH ×2 (08:47→20:43)
[2017-10-17] MEDS: METOPROLOL 25 MG TAB PO SCH ×2 (08:48→20:44)
[2017-10-17] MEDS: ACETAMINOPHEN 650MG/20.3ML CUP PO PRN ×2 (08:51→21:32)
--- NOTE | 2017-10-17 13:40 | RADRPT ---
Echocardiogram Report Patient Name: ARIES WHITNEY Gender: Female Date: 1980 Study Date: 15-Oct-2017 Waist Presser: ONEIL Location: [id number] Ref. Physician: ANNIE BRISCOE Quality: Good Procedures: Transthoracic echocardiogram with complete 2D, M-Mode, and doppler examination. Indications: Possible right to left shunt. 2D/M Mode Doppler Measurement Value Normal Ranges Measurement Value Normal Ranges AoR Diam MM 2.9 cm YAMEL Vmax 2.1 cm2 ACS MM 1.8 cm YAMEL VTI 2.1 cm2 LA/Ao MM 1.2 AV Mean Kavin 1.0 m/sec LA Dimen MM 3.4 cm AV Mean PG 4.2 mmHg LVIDd 2D 4.8 3.5 - 5.6 cm AV Peak Kavin 1.3 m/sec LVIDs 2D 3.1 2.1 - 4.1 cm AV Peak PG 7.1 mmHg LVPWd 2D 1.1 0.6 - 1.1 cm AV VTI 25.0 cm IVSd 2D 1.1 0.6 - 1.1 cm LVOT Peak Kavin 1.0 m/sec EDV 2D 105.3 cm3 LVOT Peak PG 4.1 mmHg ESV 2D 28.7 cm3 MV E Peak Kavin 0.9 m/sec EF 2D 65.0 50.0 - 65.0 % MV A Peak Kavin 0.6 m/sec LVOT Diam 1.9 cm MV E/A 1.5 MV Decel Time 199 msec MV Decel Rusk 5 MV E/A 1.5 TR Peak Kavin 2.6 m/sec TR Peak PG 26.7 mmHg RVSP 30.0 mmHg RA Pressure 3.0 Findings Left Ventricle: Normal left ventricular systolic function. Normal left ventricular cavity size. Normal left ventricular wall thickness. Ejection fraction is visually estimated at 65 %. Tissue Doppler/Mitral Doppler indices are within normal limits. Right Ventricle: Normal right ventricular size. Normal right ventricular systolic function. Left Atrium: The left atrium is normal in size. Right Atrium: The right atrium is normal in size. Atrial Septum: Normal atrial septum. Mitral Valve: Normal appearance and function of the mitral valve with trace physiologic regurgitation. Aortic Valve: Normal appearance of the aortic valve. No significant aortic stenosis or insufficiency. Tricuspid Valve: Normal appearance of the tricuspid valve. Estimated peak PA systolic pressure 30 mmHg. Pulmonic Valve: Normal pulmonic valve appearance. There is trace pulmonic regurgitation. Pericardium: Normal pericardium with no significant pericardial effusion. Aorta: Normal aortic root. IVC: Normal size and normal respiratory collapse consistent with normal right atrial pressure. Conclusions 1.Normal left ventricular systolic function. Normal left ventricular cavity size. Normal left ventricular wall thickness. Ejection fraction is visually estimated at 65 %. Tissue Doppler/Mitral Doppler indices are within normal limits. 2.The left atrium is normal in size. 3.Normal appearance and function of the mitral valve with trace physiologic regurgitation. 4.Normal appearance of the aortic valve. No significant aortic stenosis or insufficiency. 5.Normal appearance of the tricuspid valve. Estimated peak PA systolic pressure 30 mmHg. 6.Normal pulmonic valve appearance. There is trace pulmonic regurgitation. 7.Normal pericardium with no significant pericardial effusion. Electronically Signed By: Milady Gonzalez 17-Oct-2017 13:38:49 -0800 Patient Name: ARIES WHITNEY Study Date: 15-Oct-2017 [id number]
--- NOTE | 2017-10-17 15:15 | CONS ---
Date/Time of Note Date/Time of Note DATE: 10/17/17 TIME: 15:14 Consult Date/Type/Reason Admit Date/Time Oct 10, 2017 at 09:08 Initial Consult Date 10/10/17 Type of Consultation: id Ordering Provider: CRISTEL HILL MD Objective Vital Signs Date Time Temp Pulse Resp B/P Pulse Ox O2 Delivery O2 Flow Rate FiO2 10/17/17 15:03 98.2 94 19 111/57 96 10/16/17 04:16 Room Air 10/15/17 02:05 2.0 10/14/17 21:07 27 Intake and Output 10/16/17 10/16/17 10/17/17 15:00 23:00 07:00 Intake Total 700 ml 400 ml Balance 700 ml 400 ml Results/Medications Result Diagram: 10/17/17 0608 10/17/17 0608 Results 24 hrs Laboratory Tests Test 10/16/17 18:40 10/17/17 06:08 Creatine Kinase < 20 L Creatine Kinase Index Creatinine Kinase MB (Mass) < 0.22 Troponin I < 0.012 White Blood Count 13.2 H Red Blood Count 5.05 Hemoglobin 14.8 Hematocrit 42.9 Mean Corpuscular Volume 85.0 Mean Corpuscular Hemoglobin 29.3 Mean Corpuscular Hemoglobin Concent 34.5 Red Cell Distribution Width 12.5 Platelet Count 416 H Mean Platelet Volume 9.8 Neutrophils % 70.9 Lymphocytes % 19.1 Monocytes % 7.6 Eosinophils % 1.3 Basophils % 0.3 Nucleated Red Blood Cells % 0.2 H Neutrophils # 9.4 H Lymphocytes # 2.5 Monocytes # 1.0 H Eosinophils # 0.2 Basophils # 0.0 Nucleated Red Blood Cells # 0.0 Sodium Level 141 Potassium Level 4.4 Chloride Level 104 Carbon Dioxide Level 26 Anion Gap 15 Blood Urea Nitrogen 10 Creatinine 0.55 Glucose Level 114 Calcium Level 9.7 Phosphorus Level 4.0 Magnesium Level 2.3 Medications Current Medications Ondansetron HCl (Zofran Inj) 4 mg Q6H PRN IV NAUSEA AND/OR VOMITING; Start at 03:00 Acetaminophen (Tylenol Liquid) 650 mg Q6H PRN PO PAIN LEVEL 1-3 OR FEVER Last administered on 10/17/17t 08:51; Admin Dose 650 MG; Start 10/10/17 at 03:00 Morphine Sulfate (morphine) 2 mg Q4H PRN IV PAIN LEVEL 7-10 Last administered on 10/15/17 20:10; Admin Dose 2 MG; Start 10/10/17 at 03:00 Tobramycin (Tobramycin Iv Per Pharmacy) TOBRAMYCIN PER PHARMACY NOTE XX ; Start 10/12/17 at 10:30 Famotidine (Pepcid) 20 mg BID PO Last administered on 10/17/17 08:47; Admin Dose 20 MG; Start 10/12/17 at 10:30 IV Flush 10 ml 10 ml PRN PRN IV IV PROTOCOL; Start 10/14/17 at 16:00 Tobramycin/ Dextrose (Tobramycin/D5W) 111 ml @ 111 mls/hr Q24H IVPB Last administered on 10/16/17 17:36; Admin Dose 111 MLS/HR; Start 10/15/17 at 17: 00 Metoprolol Tartrate (Lopressor) 12.5 mg BID PO Last administered on 10/17/17 08:48; Admin Dose 12.5 MG; Start 10/15/17 at 21:00 Acetaminophen/ Hydrocodone Bitart ([place] (5/325)) 1 tab Q6H PRN PO Pain; Start 10/15/17 at 14:00 Miscellaneous Information (*Rx Drug Level Order Reminder*) TOBRAMYCIN TROUGH AT 1600 ONCE ONCE XX ; Start 10/18/17 at 16:00; Stop 10/18/17 at 16:01 Assessment/Plan Chief Complaint/Hosp Course SUBJECTIVE: No acute changes overnight. Alert, feels good, looks comfortable. Denies pain, no fevers/n/v/d. MICROBIOLOGY: Blood culture growing Pseudomonas aeruginosa, multi-drug resistant, susceptible to aminoglycosides, Zosyn, Fortaz. ALLERGIES: PENICILLIN. ANTIMICROBIALS: Tobramycin DIAGNOSTICS: Thyroid ultrasound revealed nonspecific small subcentimeter hyperechoic nodules in the bilateral lobes with mild heterogenous echotexture of thyroid gland with vascularity being normal. Chest x-ray revealed mild right bibasilar atelectasis. PHYSICAL EXAMINATION: GENERAL: This is a well-nourished, well-developed, middle-aged woman who is alert, in no distress. HEENT: Head atraumatic, normocephalic. Sclerae anicteric. Buccal mucosa pink. NECK: Supple. CHEST: Rise symmetrical. Breath sounds clear. HEART: S1, S2. ABDOMEN: Soft, bowel tones present. EXTREMITIES: Without cyanosis or edema. ASSESSMENT: 1. S/p sepsis 2. Pseudomonas aeruginosa bacteremia likely pulmonary source. 3. Status post thyroid storm. 4. RLL PNA PLAN: The patient remains stable. Repeat bld cx negative, continue Tobramycin for 7 more days, f/u endocrinology recommendations. Pending dc planning DW staff/patient Problems: ARELI JANE NP Oct 17, 2017 15:15
--- NOTE | 2017-10-17 15:49 | PN ---
Date/Time of Note Date/Time of Note DATE: 10/17/17 TIME: 15:46 Assessment/Plan VTE Prophylaxis VTE Prophylaxis Intervention: SCD's Lines/Catheters IV [facility] Urinary Cath still in place: No Assessment/Plan Chief Complaint/Hosp Course Assessment and plan 1. Thyrotoxicosis. Circular Knitter Helper following. Continue methimazole. 2. Transient episode of encephalopathy following PICC line insertion on October 14, 2017. Patient did have brain imaging that was negative for any acute findings. Improved at present. Will monitor. 3. Sepsis with underlying pseudomonas aeruginosa bacteremia. Continue antibiotics. Patient reportedly had reaction to tobramycin. Follow-up with ID for antibiotic regimen. 4. Sinus tachycardia. Likely secondary to #1. Continue low-dose beta-santosh. Disposition and plan: Follow-up with ID for antibiotic regimen. Anticipate discharge within the next 24 hours if medically stable and cleared by consultants Discussed plan of care with Dr. Perez Problems: Subjective 24 Hr Interval Summary Free Text/Dictation no s/s of distress. comfortable at present Exam/Review of Systems Vital Signs Vitals Vital Signs Date Time Temp Pulse Resp B/P Pulse Ox O2 Delivery O2 Flow Rate FiO2 10/17/17 15:03 98.2 94 19 111/57 96 10/16/17 04:16 Room Air 10/15/17 02:05 2.0 10/14/17 21:07 27 Intake and Output 10/16/17 10/16/17 10/17/17 15:00 23:00 07:00 Intake Total 700 ml 400 ml Balance 700 ml 400 ml Exam Constitutional: alert, oriented Psych: nl mood/affect Head: normocephalic Eyes: nl conjunctiva Neck: non-tender, supple Respiratory: clear to auscultation, normal air movement Cardiovascular: regular rate and rhythm Gastrointestinal: nl liver, spleen, soft Musculoskeletal: nl extremities to inspection Extremities: normal pulses Neurological: OPTICAL FABRICATION TECHNICIAN II-XII intact, nl mental status, nl speech Skin: nl turgor Results Result Diagram: 10/17/17 0608 10/17/17 0608 Results 24 hrs Laboratory Tests Test 10/16/17 18:40 10/17/17 06:08 Creatine Kinase < 20 L Creatine Kinase Index Creatinine Kinase MB (Mass) < 0.22 Troponin I < 0.012 White Blood Count 13.2 H Red Blood Count 5.05 Hemoglobin 14.8 Hematocrit 42.9 Mean Corpuscular Volume 85.0 Mean Corpuscular Hemoglobin 29.3 Mean Corpuscular Hemoglobin Concent 34.5 Red Cell Distribution Width 12.5 Platelet Count 416 H Mean Platelet Volume 9.8 Neutrophils % 70.9 Lymphocytes % 19.1 Monocytes % 7.6 Eosinophils % 1.3 Basophils % 0.3 Nucleated Red Blood Cells % 0.2 H Neutrophils # 9.4 H Lymphocytes # 2.5 Monocytes # 1.0 H Eosinophils # 0.2 Basophils # 0.0 Nucleated Red Blood Cells # 0.0 Sodium Level 141 Potassium Level 4.4 Chloride Level 104 Carbon Dioxide Level 26 Anion Gap 15 Blood Urea Nitrogen 10 Creatinine 0.55 Glucose Level 114 Calcium Level 9.7 Phosphorus Level 4.0 Magnesium Level 2.3 Medications Medications Current Medications Ondansetron HCl (Zofran Inj) 4 mg Q6H PRN IV NAUSEA AND/OR VOMITING; Start at 03:00 Acetaminophen (Tylenol Liquid) 650 mg Q6H PRN PO PAIN LEVEL 1-3 OR FEVER Last administered on 10/17/17 08:51; Admin Dose 650 MG; Start 10/10/17 at 03:00 Morphine Sulfate (morphine) 2 mg Q4H PRN IV PAIN LEVEL 7-10 Last administered on 10/15/17 20:10; Admin Dose 2 MG; Start 10/10/17 at 03:00 Tobramycin (Tobramycin Iv Per Pharmacy) TOBRAMYCIN PER PHARMACY NOTE XX ; Start 10/12/17 at 10:30 Famotidine (Pepcid) 20 mg BID PO Last administered on 10/17/17 08:47; Admin Dose 20 MG; Start 10/12/17 at 10:30 IV Flush 10 ml 10 ml PRN PRN IV IV PROTOCOL; Start 10/14/17 at 16:00 Tobramycin/ Dextrose (Tobramycin/D5W) 111 ml @ 111 mls/hr Q24H IVPB Last administered on 10/16/17 17:36; Admin Dose 111 MLS/HR; Start 10/15/17 at 17: 00 Metoprolol Tartrate (Lopressor) 12.5 mg BID PO Last administered on 10/17/17 08:48; Admin Dose 12.5 MG; Start 10/15/17 at 21:00 Acetaminophen/ Hydrocodone Bitart ([place] (5/325)) 1 tab Q6H PRN PO Pain; Start 10/15/17 at 14:00 Miscellaneous Information (*Rx Drug Level Order Reminder*) TOBRAMYCIN TROUGH AT 1600 ONCE ONCE XX ; Start 10/18/17 at 16:00; Stop 10/18/17 at 16:01 AIDA DURHAM Oct 17, 2017 15:49
[2017-10-17] MEDS: TOBRAMYCIN IVPB SCH (17:00)
[2017-10-17] MEDS: DEXTROSE 5% IVPB SCH (17:00)
[2017-10-17] MEDS: CEFTAZIDIME 1GM/50 ML (PMX) 50 ML IVPB SCH (20:44)
[2017-10-18] VITALS (11 sets, daily range): BP systolic 98–120; BP diastolic 42–76; PULSE 81–130; RESP 17–20
[2017-10-18] MEDS: METHIMAZOLE 5 MG TAB PO SCH (06:15)
[2017-10-18] MEDS: CEFTAZIDIME 1GM/50 ML (PMX) 50 ML IVPB SCH ×3 (06:15→22:15)
[2017-10-18 08:05] LABS: BASOPHILS % 0.3 % (0.0-2.0); EOSINOPHILS # 0.1 10^3/ul (0.0-0.5); EOSINOPHILS % 1.2 % (0.0-7.0); HEMATOCRIT 37.3 % (37.0-47.0); HEMOGLOBIN 12.6 g/dl (12.0-16.0); LYMPHOCYTES # 2.5 10^3/ul (0.8-2.9); LYMPHOCYTES % 20.8 % (15.0-51.0); MEAN CORPUSCULAR HEMOGLOBIN 28.8 pg (29.0-33.0); MEAN CORPUSCULAR HGB CONC 33.8 g/dl (32.0-37.0); MEAN CORPUSCULAR VOLUME 85.4 fl (82.0-101.0); MEAN PLATELET VOLUME 9.3 fl (7.4-10.4); MONOCYTES % 8.8 % (0.0-11.0); NEUTROPHIL # 8.1 10^3/ul (1.6-7.5); NEUTROPHILS % 68.3 % (39.0-77.0); PLATELET COUNT 398 10^3/UL (140-415); RED BLOOD COUNT 4.37 10^6/ul (4.20-5.40); RED CELL DISTRIBUTION WIDTH 12.3 % (11.5-14.5); WHITE BLOOD COUNT 11.8 10^3/ul (4.8-10.8)
[2017-10-18] MEDS: METOPROLOL 25 MG TAB PO SCH (08:18)
[2017-10-18] MEDS: HYDROCODONE/APAP (5/325) TAB PO PRN (08:18)
[2017-10-18] MEDS: FAMOTIDINE 20 MG TAB PO SCH ×2 (08:18→22:15)
--- NOTE | 2017-10-18 08:28 | CONS ---
Date/Time of Note Date/Time of Note DATE: 10/18/17 TIME: 08:22 Assessment/Plan Assessment/Plan Chief Complaint/Hosp Course 37-year-old female who was admitted with thyrotoxicosis. Please note she was labeled as having thyroid storm but did not have fever tachycardia [id number]. As I obtained the history from the patient she had been checked for thyroid disorder roughly 2-3 years ago but and been told everything was okay. Please note this differs from what the emergency room physician and the admission H&P state. In the last 2 weeks as I understood the history she developed tenderness in the area of the neck with fevers by tactile sensation but not measured. She developed multiple symptoms of thyrotoxicosis over the last 2 weeks and presented to the emergency room. In our emergency room she was obviously hyperthyroid Problems: (1) Hyperthyroidism Status: Acute Comment: She is stable on her medication. For simplicity we will adjust the beta-santosh. The beta-santosh should last for 4 weeks and then be discontinued. Methimazole should have refills. I will follow her up in my office as an outpatient (2) Bacteremia due to Pseudomonas Status: Acute Comment: The patient was clearly having a reaction to the tobramycin which is an atypical phenomenon. She is tolerating the ceftazidime without issue. Please note as I dictated yesterday my belief and the penicillin allergy that is described as patient is that this was not an accurate allergy. She is tolerating the cephalosporin's safely Consultation Date/Type/Reason Admit Date/Time Oct 10, 2017 at 09:08 Initial Consult Date 10/10/17 Type of Consultation: Endocrinology Reason for Consultation Thyrotoxicosis without thyroid storm; gram-negative bacteremia sepsis Referring Provider: CRISTEL HILL MD 24 HR Interval Summary Free Text/Dictation Patient reports she is feeling much better with the change in antibiotics. Constitutional: no complaints (No fevers chills or sweats) Exam/Review of Systems Vital Signs Vitals Vital Signs Date Time Temp Pulse Resp B/P Pulse Ox O2 Delivery O2 Flow Rate FiO2 10/18/17 04:24 82 10/18/17 03:27 98.3 18 98/42 99 10/16/17 04:16 Room Air 10/15/17 02:05 2.0 10/14/17 21:07 27 Intake and Output 11/10/17/17 10/18/17 14:59 22:59 06:59 Intake Total 1000 ml 800 ml Output Total 800 ml Balance 200 ml 800 ml Exam Constitutional: alert, oriented Neck: non-tender, supple, thyromegaly (Mild thyromegaly without nodules) Respiratory: clear to auscultation, normal air movement Cardiovascular: nl pulses, regular rate and rhythm Results Result Diagram: 10/18/17 0723 10/17/17 0608 Results 24 hrs Laboratory Tests Test 10/18/17 07:23 White Blood Count 11.8 H Red Blood Count 4.37 Hemoglobin 12.6 Hematocrit 37.3 Mean Corpuscular Volume 85.4 Mean Corpuscular Hemoglobin 28.8 L Mean Corpuscular Hemoglobin Concent 33.8 Red Cell Distribution Width 12.3 Platelet Count 398 Mean Platelet Volume 9.3 Neutrophils % 68.3 Lymphocytes % 20.8 Monocytes % 8.8 Eosinophils % 1.2 Basophils % 0.3 Nucleated Red Blood Cells % 0.0 Neutrophils # 8.1 H Lymphocytes # 2.5 Monocytes # 1.0 H Eosinophils # 0.1 Basophils # 0.0 Nucleated Red Blood Cells # 0.0 Medications Medications Current Medications Ondansetron HCl (Zofran Inj) 4 mg Q6H PRN IV NAUSEA AND/OR VOMITING; Start at 03:00 Acetaminophen (Tylenol Liquid) 650 mg Q6H PRN PO PAIN LEVEL 1-3 OR FEVER Last administered on 10/17/17 21:32; Admin Dose 650 MG; Start 10/10/17 at 03:00 Morphine Sulfate (morphine) 2 mg Q4H PRN IV PAIN LEVEL 7-10 Last administered on 10/15/17 20:10; Admin Dose 2 MG; Start 10/10/17 at 03:00 Famotidine (Pepcid) 20 mg BID PO Last administered on 10/18/17 08:18; Admin Dose 20 MG; Start 10/12/17 at 10:30 IV Flush (NS 10 ml) 10 ml PRN PRN IV IV PROTOCOL; Start 10/14/17 at 16:00 Metoprolol Tartrate (Lopressor) 12.5 mg BID PO Last administered on 10/18/17 08:18; Admin Dose 12.5 MG; Start 10/15/17 at 21:00 Acetaminophen/ Hydrocodone Bitart ([place] (5/325)) 1 tab Q6H PRN PO Pain Last administered on 10/18/17 08:18; Admin Dose 1 TAB; Start 10/15/17 at 14:00 Miscellaneous Information TOBRAMYCIN TROUGH AT 1600 ONCE ONCE XX ; Start 10/18/17 at 16:00; Stop 10/18/17 at 16:01 Ceftazidime (Fortaz 1gm/50 ml (Pmx)) 50 ml @ 100 mls/hr Q8 IVPB Last administered on 10/18/17 06:15; Admin Dose 100 MLS/HR; Start 10/17/17 at 22: 00 ANNIE BRISCOE MD Oct 18, 2017 08:28
[2017-10-18 08:37] LABS: MAGNESIUM 2.2 mg/dl (1.7-2.5); PHOSPHORUS 3.5 mg/dl (2.5-4.9)
[2017-10-18 08:40] LABS: CALCIUM 9.1 mg/dl (8.4-10.2); CREATININE 0.47 mg/dl (0.44-1.00); POTASSIUM 4.4 mmol/L (3.5-5.1)
[2017-10-18] MEDS: METOPROLOL 50 MG TAB PO SCH (09:00)
[2017-10-18] MEDS ORDERED: METOPROLOL 25 MG TAB PO SCH (09:00)
--- NOTE | 2017-10-18 14:35 | CONS ---
Date/Time of Note Date/Time of Note DATE: 10/18/17 TIME: 14:33 Assessment/Plan Assessment/Plan Chief Complaint/Hosp Course SUBJECTIVE: All noted, pt is alert, feels good, looks comfortable. Denies pain , no fevers/n/v/d. MICROBIOLOGY: Blood culture growing Pseudomonas aeruginosa, multi-drug resistant, susceptible to aminoglycosides, Zosyn, Fortaz. ALLERGIES: PENICILLIN==> not true allergy. ANTIMICROBIALS: Fortaz DIAGNOSTICS: Thyroid ultrasound revealed nonspecific small subcentimeter hyperechoic nodules in the bilateral lobes with mild heterogenous echotexture of thyroid gland with vascularity being normal. Chest x-ray revealed mild right bibasilar atelectasis. PHYSICAL EXAMINATION: GENERAL: This is a well-nourished, well-developed, middle-aged woman who is alert, in no distress. HEENT: Head atraumatic, normocephalic. Sclerae anicteric. Buccal mucosa pink. NECK: Supple. CHEST: Rise symmetrical. Breath sounds clear. HEART: S1, S2. ABDOMEN: Soft, bowel tones present. EXTREMITIES: Without cyanosis or edema. ASSESSMENT: 1. S/p sepsis 2. Pseudomonas aeruginosa bacteremia likely pulmonary source. 3. Status post thyroid storm. 4. RLL PNA PLAN: The patient remains stable. Repeat bld cx negative, she was started on Fortaz 2 to reaction to Tobramycin which will be continued for 6 more days, endocrinology recommendations noted. Pending dc planning staff/patient Problems: Consultation Date/Type/Reason Admit Date/Time Oct 10, 2017 at 09:08 Initial Consult Date 10/10/17 Type of Consultation: ID Referring Provider: CRISTEL HILL MD Exam/Review of Systems Vital Signs Vitals Vital Signs Date Time Temp Pulse Resp B/P Pulse Ox O2 Delivery O2 Flow Rate FiO2 10/18/17 12:11 87 10/18/17 11:36 97.9 20 109/76 98 10/16/17 04:16 Room Air 10/15/17 02:05 2.0 10/14/17 21:07 27 Intake and Output 10/17/17 10/17/17 10/18/17 14:59 22:59 06:59 Intake Total 1000 ml 800 ml Output Total 800 ml Balance 200 ml 800 ml Results Result Diagram: 10/18/17 0723 10/18/17 0723 Results 24 hrs Laboratory Tests Test 10/18/17 07:23 White Blood Count 11.8 H Red Blood Count 4.37 Hemoglobin 12.6 Hematocrit 37.3 Mean Corpuscular Volume 85.4 Mean Corpuscular Hemoglobin 28.8 L Mean Corpuscular Hemoglobin Concent 33.8 Red Cell Distribution Width 12.3 Platelet Count 398 Mean Platelet Volume 9.3 Neutrophils % 68.3 Lymphocytes % 20.8 Monocytes % 8.8 Eosinophils % 1.2 Basophils % 0.3 Nucleated Red Blood Cells % 0.0 Neutrophils # 8.1 H Lymphocytes # 2.5 Monocytes # 1.0 H Eosinophils # 0.1 Basophils # 0.0 Nucleated Red Blood Cells # 0.0 Sodium Level 141 Potassium Level 4.4 Chloride Level 106 Carbon Dioxide Level 25 Anion Gap 14 Blood Urea Nitrogen 9 Creatinine 0.47 Glucose Level 108 Calcium Level 9.1 Phosphorus Level 3.5 Magnesium Level 2.2 Medications Medications Current Medications Ondansetron HCl (Zofran Inj) 4 mg Q6H PRN IV NAUSEA AND/OR VOMITING Last administered on 10/18/17 10:07; Admin Dose 4 MG; Start 10/10/17 at 03:00 Acetaminophen (Tylenol Liquid) 650 mg Q6H PRN PO PAIN LEVEL 1-3 OR FEVER Last administered on 10/17/17 21:32; Admin Dose 650 MG; Start 10/10/17 at 03:00 Morphine Sulfate (morphine) 2 mg Q4H PRN IV PAIN LEVEL 7-10 Last administered on 10/15/17 20:10; Admin Dose 2 MG; Start 10/10/17 at 03:00 Famotidine (Pepcid) 20 mg BID PO Last administered on 10/18/17 08:18; Admin Dose 20 MG; Start 10/12/17 at 10:30 IV Flush (NS 10 ml) 10 ml PRN PRN IV IV PROTOCOL; Start 10/14/17 at 16:00 Acetaminophen/ Hydrocodone Bitart ([place] (5/325)) 1 tab Q6H PRN PO Pain Last administered on 10/18/17 08:18; Admin Dose 1 TAB; Start 10/15/17 at 14:00 Miscellaneous Information TOBRAMYCIN TROUGH AT 1600 ONCE ONCE XX ; Start 10/18/17 at 16:00; Stop 10/18/17 at 16:01 Ceftazidime (Fortaz 1gm/50 ml (Pmx)) 50 ml @ 100 mls/hr Q8 IVPB Last administered on 10/18/17t 13:59; Admin Dose 100 MLS/HR; Start 10/17/17 at 22: 00 Metoprolol Tartrate (Lopressor) 50 mg DAILY PO ; Start 10/18/17 at 09:00 ARELI JANE NP Oct 18, 2017 14:35
--- NOTE | 2017-10-18 14:46 | PN ---
Date/Time of Note Date/Time of Note DATE: 10/18/17 TIME: 14:43 Assessment/Plan VTE Prophylaxis VTE Prophylaxis Intervention: SCD's Lines/Catheters [facility] Saline [facility] Urinary Cath still in place: No Assessment/Plan Chief Complaint/Hosp Course Assessment and plan 1. Thyrotoxicosis. Catastrophe Claims Supervisor following. Continue methimazole. 2. Transient episode of encephalopathy following PICC line insertion on October 14, 2017. Patient did have brain imaging that was negative for any acute findings. Improved at present. Will monitor. 3. Sepsis with underlying pseudomonas aeruginosa bacteremia. Continue antibiotics. Patient reportedly had reaction to tobramycin. Follow-up with ID for antibiotic regimen. 4. Sinus tachycardia. Likely secondary to #1. Continue low-dose beta-santosh. Disposition and plan: abx adjusted. plan for d/c once abx set up for home Discussed plan of care with Dr. Perez Problems: Subjective 24 Hr Interval Summary Free Text/Dictation no s/s of distress. resting at this time Exam/Review of Systems Vital Signs Vitals Vital Signs Date Time Temp Pulse Resp B/P Pulse Ox O2 Delivery O2 Flow Rate FiO2 10/18/17 12:11 87 10/18/17 11:36 97.9 20 109/76 98 10/16/17 04:16 Room Air 10/15/17 02:05 2.0 10/14/17 21:07 27 Intake and Output 10/17/17 10/17/17 10/18/17 15:00 23:00 07:00 Intake Total 1000 ml 800 ml Output Total 800 ml Balance 200 ml 800 ml Exam Constitutional: alert, oriented Psych: nl mood/affect Head: normocephalic Eyes: nl conjunctiva Neck: non-tender, supple Respiratory: clear to auscultation, normal air movement Cardiovascular: regular rate and rhythm Gastrointestinal: nl liver, spleen, soft Musculoskeletal: nl extremities to inspection Extremities: normal pulses Neurological: GYROSCOPIC INSTRUMENT MECHANIC II-XII intact, nl mental status, nl speech Skin: nl turgor Results Result Diagram: 10/18/1772210/18/17722 Results 24 hrs Laboratory Tests Test 10/18/17 07:23 White Blood Count 11.8 H Red Blood Count 4.37 Hemoglobin 12.6 Hematocrit 37.3 Mean Corpuscular Volume 85.4 Mean Corpuscular Hemoglobin 28.8 L Mean Corpuscular Hemoglobin Concent 33.8 Red Cell Distribution Width 12.3 Platelet Count 398 Mean Platelet Volume 9.3 Neutrophils % 68.3 Lymphocytes % 20.8 Monocytes % 8.8 Eosinophils % 1.2 Basophils % 0.3 Nucleated Red Blood Cells % 0.0 Neutrophils # 8.1 H Lymphocytes # 2.5 Monocytes # 1.0 H Eosinophils # 0.1 Basophils # 0.0 Nucleated Red Blood Cells # 0.0 Sodium Level 141 Potassium Level 4.4 Chloride Level 106 Carbon Dioxide Level 25 Anion Gap 14 Blood Urea Nitrogen 9 Creatinine 0.47 Glucose Level 108 Calcium Level 9.1 Phosphorus Level 3.5 Magnesium Level 2.2 Medications Medications Current Medications Ondansetron HCl (Zofran Inj) 4 mg Q6H PRN IV NAUSEA AND/OR VOMITING Last administered on 10/18/17 10:07; Admin Dose 4 MG; Start 10/10/17 at 03:00 Acetaminophen (Tylenol Liquid) 650 mg Q6H PRN PO PAIN LEVEL 1-3 OR FEVER Last administered on 10/17/17 21:32; Admin Dose 650 MG; Start 10/10/17 at 03:00 Morphine Sulfate (morphine) 2 mg Q4H PRN IV PAIN LEVEL 7-10 Last administered on 10/15/17 20:10; Admin Dose 2 MG; Start 10/10/17 at 03:00 Famotidine (Pepcid) 20 mg BID PO Last administered on 10/18/17 08:18; Admin Dose 20 MG; Start 10/12/17 at 10:30 IV Flush (NS 10 ml) 10 ml PRN PRN IV IV PROTOCOL; Start 10/14/17 at 16:00 Acetaminophen/ Hydrocodone Bitart ([place] (5/325)) 1 tab Q6H PRN PO Pain Last administered on 10/18/17 08:18; Admin Dose 1 TAB; Start 10/15/17 at 14:00 Miscellaneous Information TOBRAMYCIN TROUGH AT 1600 ONCE ONCE XX ; Start 10/18/17 at 16:00; Stop 10/18/17 at 16:01 Ceftazidime (Fortaz 1gm/50 ml (Pmx)) 50 ml @ 100 mls/hr Q8 IVPB Last administered on 10/18/17 13:59; Admin Dose 100 MLS/HR; Start 10/17/17 at 22: 00 Metoprolol Tartrate (Lopressor) 50 mg DAILY PO ; Start 10/18/17 at 09:00 AIDA DURHAM Oct 18, 2017 14:46
[2017-10-18] MEDS ORDERED: METO-429 PO (14:49)
[2017-10-18] MEDS ORDERED: HYDR-3498 PO (14:49)
[2017-10-18] MEDS ORDERED: METH-493 PO (14:49)
--- NOTE | 2017-10-18 14:50 | PDOCDIS ---
Discharge Instructions DIAGNOSIS Discharge Diagnosis 1. Thyrotoxicosis. 2. Transient episode of encephalopathy 3. Sepsis with underlying pseudomonas aeruginosa bacteremia. 4. Sinus tachycardia. HOME CARE INSTRUCTIONS: Diet Instructions: Low Fat /Cholesterol FOLLOW UP/APPOINTMENTS Follow-up Plan 1. Follow up with Dr Billy Abad in one week 2. Follow up with Dr. Chapo Madera in 1-2 weeks AIDA DURHAM Oct 18, 2017 14:50
[2017-10-18] MEDS: ACETAMINOPHEN 650MG/20.3ML CUP PO PRN (22:14)
[2017-10-19] VITALS (12 sets, daily range): BP systolic 95–138; BP diastolic 48–63; PULSE 84–107; RESP 16–18
[2017-10-19] MEDS: CEFTAZIDIME 1GM/50 ML (PMX) 50 ML IVPB SCH ×2 (06:06→13:20)
[2017-10-19] MEDS: METHIMAZOLE 5 MG TAB PO SCH (06:06)
[2017-10-19] MEDS: FAMOTIDINE 20 MG TAB PO SCH ×2 (08:22→20:31)
[2017-10-19] MEDS: METOPROLOL 50 MG TAB PO SCH (08:23)
[2017-10-19] MEDS ORDERED: ACID1TAB14 PO (14:14)
[2017-10-19] MEDS ORDERED: CEFT1VIA7 IJ (14:14)
[2017-10-19] MEDS: CEFTAZIDIME 1 GM INJ IM SCH ×2 (14:30→21:30)
--- NOTE | 2017-10-19 15:05 | CONS ---
Date/Time of Note Date/Time of Note DATE: 10/19/17 TIME: 15:04 Assessment/Plan Assessment/Plan Chief Complaint/Hosp Course SUBJECTIVE: All noted, pt is alert, feels good, looks comfortable. Denies pain , no fevers/n/v/d. MICROBIOLOGY: Blood culture growing Pseudomonas aeruginosa, multi-drug resistant, susceptible to aminoglycosides, Zosyn, Fortaz. ALLERGIES: PENICILLIN==> not true allergy. ANTIMICROBIALS: Fortaz DIAGNOSTICS: Thyroid ultrasound revealed nonspecific small subcentimeter hyperechoic nodules in the bilateral lobes with mild heterogenous echotexture of thyroid gland with vascularity being normal. Chest x-ray revealed mild right bibasilar atelectasis. PHYSICAL EXAMINATION: GENERAL: This is a well-nourished, well-developed, middle-aged woman who is alert, in no distress. HEENT: Head atraumatic, normocephalic. Sclerae anicteric. Buccal mucosa pink. NECK: Supple. CHEST: Rise symmetrical. Breath sounds clear. HEART: S1, S2. ABDOMEN: Soft, bowel tones present. EXTREMITIES: Without cyanosis or edema. ASSESSMENT: 1. S/p sepsis 2. Pseudomonas aeruginosa bacteremia likely pulmonary source. 3. Status post thyroid storm. 4. RLL PNA PLAN: The patient remains stable. Pending dc planning, continue on current antibiotics for 5 more days post discharge DW staff/patient Problems: Consultation Date/Type/Reason Admit Date/Time Oct 10, 2017 at 09:08 Initial Consult Date 10/10/17 Type of Consultation: ID Referring Provider: CRISTEL HILL MD Exam/Review of Systems Vital Signs Vitals Vital Signs Date Time Temp Pulse Resp B/P Pulse Ox O2 Delivery O2 Flow Rate FiO2 10/19/17 12:06 97.8 78 17 114/59 97 10/16/17 04:16 Room Air Intake and Output 10/18/17 10/18/17 10/19/17 15:00 23:00 07:00 Intake Total 960 ml 800 ml Balance 960 ml 800 ml Results Result Diagram: 10/18/17 0723 10/18/17 0723 Results 24 hrs Laboratory Tests Test 10/18/17 16:23 Tobramycin Level Trough < 0.6 L Medications Medications Current Medications Ondansetron HCl (Zofran Inj) 4 mg Q6H PRN IV NAUSEA AND/OR VOMITING Last administered on 10/18/17 10:07; Admin Dose 4 MG; Start 10/10/17 at 03:00 Acetaminophen (Tylenol Liquid) 650 mg Q6H PRN PO PAIN LEVEL 1-3 OR FEVER Last administered on 10/18/17 22:14; Admin Dose 650 MG; Start 10/10/17 at 03:00 Morphine Sulfate (morphine) 2 mg Q4H PRN IV PAIN LEVEL 7-10 Last administered on 10/15/17 20:10; Admin Dose 2 MG; Start 10/10/17 at 03:00 Famotidine (Pepcid) 20 mg BID PO Last administered on 10/19/17 08:22; Admin Dose 20 MG; Start 10/12/17 at 10:30 IV Flush (NS 10 ml) 10 ml PRN PRN IV IV PROTOCOL; Start 10/14/17 at 16:00 Acetaminophen/ Hydrocodone Bitart ([place] (5/325)) 1 tab Q6H PRN PO Pain Last administered on 10/18/17 08:18; Admin Dose 1 TAB; Start 10/15/17 at 14:00 Metoprolol Tartrate (Lopressor) 50 mg DAILY PO Last administered on 10/19/17 08:23; Admin Dose 50 MG; Start 10/18/17 at 09:00 Ceftazidime (Fortaz) 1 gm TID IM ; Start 10/19/17 at 14:30 ARELI JANE NP Oct 19, 2017 15:05
--- NOTE | 2017-10-19 15:47 | PN ---
Date/Time of Note Date/Time of Note DATE: 10/19/17 TIME: 15:44 Assessment/Plan VTE Prophylaxis VTE Prophylaxis Intervention: SCD's Lines/Catheters IV Catheter Type (from Nrs): Saline Lock Urinary Cath still in place: No Assessment/Plan Chief Complaint/Hosp Course Assessment and plan 1. Thyrotoxicosis. Director Of Market Research following. Continue methimazole. 2. Transient episode of encephalopathy following PICC line insertion on October 14, 2017. Patient did have brain imaging that was negative for any acute findings. Improved at present. Will monitor. 3. Sepsis with underlying pseudomonas aeruginosa bacteremia. Continue antibiotics. Patient reportedly had reaction to tobramycin. Follow-up with ID for antibiotic regimen. 4. Sinus tachycardia. Likely secondary to #1. Continue low-dose beta-santosh. Disposition and plan: reports not able to help with self-administration of abx ( despite offer of education to do so) abx addjusted for IM administration. Will follow up . plan for d/c once abx set up for home Discussed plan of care with Dr. Perez Problems: Subjective 24 Hr Interval Summary Free Text/Dictation denies any pain. family remains at bedside Exam/Review of Systems Vital Signs Vitals Vital Signs Date Time Temp Pulse Resp B/P Pulse Ox O2 Delivery O2 Flow Rate FiO2 10/19/17 15:27 98.3 89 16 118/57 98 10/16/17 04:16 Room Air Intake and Output 10/18/17 10/18/17 10/19/17 14:59 22:59 06:59 Intake Total 960 ml 800 ml Balance 960 ml 800 ml Exam Constitutional: alert, oriented Psych: nl mood/affect Head: normocephalic Eyes: nl conjunctiva Neck: non-tender, supple Respiratory: clear to auscultation, normal air movement Cardiovascular: regular rate and rhythm Gastrointestinal: nl liver, spleen, soft Musculoskeletal: nl extremities to inspection Extremities: normal pulses Neurological: DYE RANGE TENDER II-XII intact, nl mental status, nl speech Skin: nl turgor Results Result Diagram: 10/18/17 0723 10/18/17 0723 Results 24 hrs Laboratory Tests Test 10/18/17 16:23 Tobramycin Level Trough < 0.6 L Medications Medications Current Medications Ondansetron HCl (Zofran Inj) 4 mg Q6H PRN IV NAUSEA AND/OR VOMITING Last administered on 10/18/17 10:07; Admin Dose 4 MG; Start 10/10/17 at 03:00 Acetaminophen (Tylenol Liquid) 650 mg Q6H PRN PO PAIN LEVEL 1-3 OR FEVER Last administered on 10/18/17 22:14; Admin Dose 650 MG; Start 10/10/17 at 03:00 Morphine Sulfate (morphine) 2 mg Q4H PRN IV PAIN LEVEL 7-10 Last administered on 10/15/17 20:10; Admin Dose 2 MG; Start 10/10/17 at 03:00 Famotidine (Pepcid) 20 mg BID PO Last administered on 10/19/17 08:22; Admin Dose 20 MG; Start 10/12/17 at 10:30 IV Flush (NS 10 ml) 10 ml PRN PRN IV IV PROTOCOL; Start 10/14/17 at 16:00 Acetaminophen/ Hydrocodone Bitart ([place] (5/325)) 1 tab Q6H PRN PO Pain Last administered on 10/18/17 08:18; Admin Dose 1 TAB; Start 10/15/17 at 14:00 Metoprolol Tartrate (Lopressor) 50 mg DAILY PO Last administered on 10/19/17 08:23; Admin Dose 50 MG; Start 10/18/17 at 09:00 Ceftazidime (Fortaz) 1 gm TID IM ; Start 10/19/17 at 14:30 AIDA DURHAM Oct 19, 2017 15:47
[2017-10-19] MEDS: HYDROCODONE/APAP (5/325) TAB PO PRN (20:31)
[2017-10-20] VITALS (10 sets, daily range): BP systolic 93–134; BP diastolic 47–64; PULSE 74–100; RESP 17–20
[2017-10-20] MEDS: METHIMAZOLE 5 MG TAB PO SCH (06:27)
--- NOTE | 2017-10-20 09:22 | CONS ---
Date/Time of Note Date/Time of Note DATE: 10/20/17 TIME: 09:20 Assessment/Plan Assessment/Plan Chief Complaint/Hosp Course 37-year-old female who was admitted with thyrotoxicosis. Please note she was labeled as having thyroid storm but did not have fever tachycardia [id number]. As I obtained the history from the patient she had been checked for thyroid disorder roughly 2-3 years ago but and been told everything was okay. Please note this differs from what the emergency room physician and the admission H&P state. In the last 2 weeks as I understood the history she developed tenderness in the area of the neck with fevers by tactile sensation but not measured. She developed multiple symptoms of thyrotoxicosis over the last 2 weeks and presented to the emergency room. In our emergency room she was obviously hyperthyroid Problems: (1) Hyperthyroidism Status: Acute Comment: She is doing well and stable. No need to follow her up for thyroid in roughly 2-4 weeks in the office. Patient has been instructed. Her discharge medication should be the methimazole 20 mg p.o. once a day and what of her other medications deemed appropriate by the primary care team Consultation Date/Type/Reason Admit Date/Time Oct 10, 2017 at 09:08 Initial Consult Date 10/10/17 Type of Consultation: Endocrinology Reason for Consultation Hyperthyroidism Referring Provider: CRISTEL HILL MD 24 HR Interval Summary Constitutional: no complaints Exam/Review of Systems Vital Signs Vitals Vital Signs Date Time Temp Pulse Resp B/P Pulse Ox O2 Delivery O2 Flow Rate FiO2 10/20/17 08:33 85 10/20/17 07:29 98.2 18 102/49 97 Intake and Output 10/19/17 10/19/17 10/20/17 15:00 23:00 07:00 Intake Total 950 ml 800 ml Balance 950 ml 800 ml Results No changes Result Diagram: 10/18/1772210/18/17722 Medications Medications Current Medications Ondansetron HCl (Zofran Inj) 4 mg Q6H PRN IV NAUSEA AND/OR VOMITING Last administered on 10/18/17 10:07; Admin Dose 4 MG; Start 10/10/17 at 03:00 Acetaminophen (Tylenol Liquid) 650 mg Q6H PRN PO PAIN LEVEL 1-3 OR FEVER Last administered on 10/18/17 22:14; Admin Dose 650 MG; Start 10/10/17 at 03:00 Morphine Sulfate (morphine) 2 mg Q4H PRN IV PAIN LEVEL 7-10 Last administered on 10/15/17 20:10; Admin Dose 2 MG; Start 10/10/17 at 03:00 Famotidine (Pepcid) 20 mg BID PO Last administered on 10/19/17 20:31; Admin Dose 20 MG; Start 10/12/17 at 10:30 IV Flush (NS 10 ml) 10 ml PRN PRN IV IV PROTOCOL; Start 10/14/17 at 16:00 Acetaminophen/ Hydrocodone Bitart ([place] (5/325)) 1 tab Q6H PRN PO Pain Last administered on 10/19/17 20:31; Admin Dose 1 TAB; Start 10/15/17 at 14:00 Metoprolol Tartrate (Lopressor) 50 mg DAILY PO Last administered on 10/19/17 08:23; Admin Dose 50 MG; Start 10/18/17 at 09:00 Ceftazidime (Fortaz) 1 gm TID IM Last administered on 10/19/17 21:30; Admin Dose 1 GM; Start 10/19/17 at 14:30 ANNIE BRISCOE MD Oct 20, 2017 09:22
[2017-10-20] MEDS: METOPROLOL 50 MG TAB PO SCH (09:41)
[2017-10-20] MEDS: FAMOTIDINE 20 MG TAB PO SCH ×2 (09:41→21:37)
[2017-10-20] MEDS: CEFTAZIDIME 1 GM INJ IM SCH ×3 (11:25→21:37)
--- NOTE | 2017-10-20 12:31 | CONS ---
Date/Time of Note Date/Time of Note DATE: 10/20/17 TIME: 12:30 Assessment/Plan Assessment/Plan Chief Complaint/Hosp Course SUBJECTIVE: Alert, feels good, looks comfortable. MICROBIOLOGY: Blood culture growing Pseudomonas aeruginosa, multi-drug resistant, susceptible to aminoglycosides, Zosyn, Fortaz. ALLERGIES: PENICILLIN==> not true allergy. ANTIMICROBIALS: Fortaz DIAGNOSTICS: Thyroid ultrasound revealed nonspecific small subcentimeter hyperechoic nodules in the bilateral lobes with mild heterogenous echotexture of thyroid gland with vascularity being normal. Chest x-ray revealed mild right bibasilar atelectasis. PHYSICAL EXAMINATION: GENERAL: This is a well-nourished, well-developed, middle-aged woman who is alert, in no distress. HEENT: Head atraumatic, normocephalic. Sclerae anicteric. Buccal mucosa pink. NECK: Supple. CHEST: Rise symmetrical. Breath sounds clear. HEART: S1, S2. ABDOMEN: Soft, bowel tones present. EXTREMITIES: Without cyanosis or edema. ASSESSMENT: 1. S/p sepsis 2. Pseudomonas aeruginosa bacteremia likely pulmonary source. 3. Status post thyroid storm. 4. RLL PNA PLAN: The patient remains stable. Pending dc planning, continue on current antibiotics for 4more days DW staff Problems: Consultation Date/Type/Reason Admit Date/Time Oct 10, 2017 at 09:08 Initial Consult Date 10/10/17 Type of Consultation: ID Referring Provider: CRISTEL HILL MD Exam/Review of Systems Vital Signs Vitals Vital Signs Date Time Temp Pulse Resp B/P Pulse Ox O2 Delivery O2 Flow Rate FiO2 10/20/17 12:18 74 10/20/17 11:37 98.6 18 105/64 98 Intake and Output 10/19/17 10/19/17 10/20/17 15:00 23:00 07:00 Intake Total 950 ml 800 ml Balance 950 ml 800 ml Results Result Diagram: 10/18/17 0723 10/18/17 07 Medications Medications Current Medications Ondansetron HCl (Zofran Inj) 4 mg Q6H PRN IV NAUSEA AND/OR VOMITING Last administered on 10/18/17t 10:07; Admin Dose 4 MG; Start 10/10/17 at 03:00 Acetaminophen (Tylenol Liquid) 650 mg Q6H PRN PO PAIN LEVEL 1-3 OR FEVER Last administered on 10/18/17 22:14; Admin Dose 650 MG; Start 10/10/17 at 03:00 Morphine Sulfate (morphine) 2 mg Q4H PRN IV PAIN LEVEL 7-10 Last administered on 10/15/17 20:10; Admin Dose 2 MG; Start 10/10/17 at 03:00 Famotidine (Pepcid) 20 mg BID PO Last administered on 10/20/17 09:41; Admin Dose 20 MG; Start 10/12/17 at 10:30 IV Flush (NS 10 ml) 10 ml PRN PRN IV IV PROTOCOL; Start 10/14/17 at 16:00 Acetaminophen/ Hydrocodone Bitart ([place] (5/325)) 1 tab Q6H PRN PO Pain Last administered on 10/19/17 20:31; Admin Dose 1 TAB; Start 10/15/17 at 14:00 Metoprolol Tartrate (Lopressor) 50 mg DAILY PO Last administered on 10/20/17 09:41; Admin Dose 50 MG; Start 10/18/17 at 09:00 Ceftazidime (Fortaz) 1 gm TID IM Last administered on 10/20/17 11:25; Admin Dose 1 GM; Start 10/19/17 at 14:30 ARELI JANE NP Oct 20, 2017 12:31
[2017-10-21] VITALS (8 sets, daily range): BP systolic 105–121; BP diastolic 53–71; PULSE 75–94; RESP 17–20
[2017-10-21] MEDS: METHIMAZOLE 5 MG TAB PO SCH (06:35)
[2017-10-21] MEDS: FAMOTIDINE 20 MG TAB PO SCH (10:00)
[2017-10-21] MEDS: METOPROLOL 50 MG TAB PO SCH (10:01)
[2017-10-21] MEDS: ACETAMINOPHEN 650MG/20.3ML CUP PO PRN (10:07)
[2017-10-21] MEDS: CEFTAZIDIME 1 GM INJ IM SCH ×2 (10:11→15:38)
--- NOTE | 2017-10-21 20:05 | PN ---
Date/Time of Note Date/Time of Note LATE ENTRY DATE: 10/20/17 Assessment/Plan VTE Prophylaxis VTE Prophylaxis Intervention: SCD's Lines/Catheters IV [facility] Urinary Cath still in place: No Assessment/Plan Chief Complaint/Hosp Course Assessment and plan 1. Thyrotoxicosis. Musician Instrumental following. Continue methimazole. 2. Transient episode of encephalopathy following PICC line insertion on October 14, 2017. Patient did have brain imaging that was negative for any acute findings. Improved at present. Will monitor. 3. Sepsis with underlying pseudomonas aeruginosa bacteremia. Continue antibiotics. Patient reportedly had reaction to tobramycin. Follow-up with ID for antibiotic regimen. 4. Sinus tachycardia. Likely secondary to #1. Continue low-dose beta-santosh. Disposition and plan: appears overall stable. plan to d/c once home health services set up for abx administration Discussed plan of care with Dr. Perez Problems: Subjective 24 Hr Interval Summary Free Text/Dictation comfortable at present. no s/s of distress Exam/Review of Systems Vital Signs Vitals Vital Signs Date Time Temp Pulse Resp B/P Pulse Ox O2 Delivery O2 Flow Rate FiO2 10/21/17 15:17 97.6 74 18 116/55 96 Intake and Output 10/20/17 10/20/17 10/21/17 15:00 23:00 07:00 Intake Total 900 ml 800 ml Balance 900 ml 800 ml Exam Constitutional: alert, oriented Psych: nl mood/affect, no complaints Head: normocephalic Eyes: nl conjunctiva Respiratory: clear to auscultation, normal air movement Cardiovascular: nl pulses, regular rate and rhythm Gastrointestinal: non-tender, soft Musculoskeletal: nl extremities to inspection, nl gait and stance Neurological: GLASS TECHNICIAN/INSTALLER II-XII intact, nl mental status, nl speech Skin: nl turgor Results Result Diagram: 10/18/1772210/18/17722 AIDA DURHAM Oct 21, 2017 20:04
== END 2017-10-21 15:56 | disposition home health service (06) | DRG 871 ==
LOC: E/R 23:38 → MS4 10-10 09:08 → ICU 10-14 19:05 → TEL 10-15 16:45
PROVIDERS: ADMIT Internal Medicine; ATTEND Internal Medicine
PROC: 02H633Z Insertion of Infusion Device into Right Atrium, Percutaneous Approach (ICD-10-PCS; principal; 2017-10-14)
DX: A41.52 Sepsis due to Pseudomonas (principal); E05.91 Thyrotoxicosis, unspecified with thyrotoxic crisis or storm; G93.40 Encephalopathy, unspecified; J18.9 Pneumonia, unspecified organism; F41.9 Anxiety disorder, unspecified; R07.9 Chest pain, unspecified
CPT/HCPCS: 36415; 36569; 70450; 70553; 71010; 76536; 76937; 80048; 80053; 80069; 80200; 81001; 81003; 82550; 82553; 82962; 83036; 83605; 83735; 84100; 84146; 84436; 84439; 84443; 84479; 84481; 84484; 84703; 85025; 85610; 85651; 85730; 86140; 87040; 87081; 87086; 93005; 93306; 93922; 93971; 96374; 96375; J0713; J1100; J1720; J1953; J1956; J2185; J2270; J2405; J3260; J7030

== ENCOUNTER → 2018-03-30 | Emergency (ER) | END | disposition home or self-care (01) ==